=== PATIENT | female | born 1940 | race Caucasian/White ===

== ENCOUNTER 2020-05-14 21:38 | Emergency (ER) | payer MEDICARE, SELFPAY ==
--- NOTE | 2020-05-14 | ECG_ITS ---
Test Reason : FALL Blood Pressure : / mmHG Vent. Rate : 100 BPM Atrial Rate : 100 BPM P-R Int : 170 ms QRS Dur : 068 ms QT Int : 378 ms P-R-T Axes : 087 051 086 degrees QTc Int : 487 ms Sinus rhythm with Premature atrial complexes Nonspecific T wave abnormality Abnormal ECG When compared with ECG of 13-MAY-2019 04:30, Premature atrial complexes are now Present Referred By: Deann Bennett Electronically Signed By:KATE MASSEY
--- NOTE | 2020-05-14 | CT_ITS ---
EXAMINATIONS: CT HEAD WITHOUT CONTRAST AND CT CERVICAL SPINE WITHOUT CONTRAST CLINICAL INFORMATION: Trauma. Pain. COMPARISON: 05/13/2019. TECHNIQUE: Contiguous helical images of the brain were obtained without IV contrast. Contiguous helical images of the cervical spine were obtained without IV contrast. Multiplanar reconstructions were performed. DLP: 867 mGy-cm. FINDINGS: There are no pathologic extra-axial fluid collections. The lateral, third, fourth ventricles are prominent, though stable, age-appropriate and concordant with the appearance of the sulci. There is no evidence for acute intraparenchymal hemorrhage or infarct. There is periventricular low-attenuation indicative of small vessel disease. There is neither mass nor mass effect. There is no shift of midline structures. The paranasal sinuses and mastoid air cells are clear. There are no osseous lesions. The cervical vertebra are in normal alignment. There is disc height loss at C5/C6 and C6-C7. Disc heights and vertebral heights are otherwise well-preserved. There are no fractures. There is no prevertebral soft tissue swelling. There is no cervical lymphadenopathy. The visualized lung apices are clear. IMPRESSION: No evidence for acute intracranial injury. No evidence for acute injury to the cervical spine. Automated exposure control (Care Dose) Adjustment of the mA and/or kv according to patient size (this includes techniques or standardized protocols for targeted exams where dose is matched to indication / reason for exam; i.e. extremities or head).
[2020-05-14 21:56] VITALS: BP 161/71; BP 167/71; PULSE 61; PULSE 99; RESP 16; TEMP 36.8; O2SAT 100; O2SAT 96; BMI 18.8
--- NOTE | 2020-05-14 22:03 | PC.NURSE ---
pt from home, she lives alone. she states she got up to use the bathroom and got light headed and fell. pt uses 4L oxygen at home for COPD and also smokes. she states she has been feeling cold and clammy at home, also reports she has falled 3 times today.
--- NOTE | 2020-05-14 22:30 | ED.FALL ---
HPI - Fall General Chief Complaint: Fall Stated Complaint: fall Time Seen by Provider: 05/14/20 22:28 History of Present Illness HPI Narrative: This is a 80-year-old female who is brought in by EMS for complaints of multiple falls today without head strike or LOC that was associated with mild dizziness on positional change as well as nausea. However, patient denies any shortness of breath, chest pain, diaphoresis or recent cough /travel/diarrhea /urinary symptoms. Patient states that she has been eating and drinking normally but self endorses she may have been drinking more soda than water. Otherwise, she denies any visual /speech changes and also denies any unilateral weakness /numbness / tingling. complaint: fall Related Data Previous Rx's Medication Instructions Recorded cephalexin 500 mg PO BID #14 cap 05/15/20 Allergies Allergy/AdvReac Type Severity Reaction Status Date / Time Sulfa (Sulfonamide Allergy Unknown HIVES Verified 05/14/20 23:25 Antibiotics) erythromycin base AdvReac Mild GI UPSET Verified 05/14/20 23:25 [ERYTHROMYCIN BASE] Review of Systems Review of Systems: Pertinent positives and negatives as stated in the HPI and 10 point review of systems is otherwise negative. [facility] Past Medical History Medical History COPD (chronic obstructive pulmonary disease) Depression GERD (gastroesophageal reflux disease) Social History Social History Alcohol intake: never Smoking Status: Unknown if ever smoked Use of substances other than those prescribed or required for medical reasons: No Advance Directives: No Advance Directives Information Provided: No Physical Exam Vital Signs and I&O and Narrative: Vital Signs and I&O: Vital Signs Temp 98.2 F 05/14/20 21:56 Pulse 95 05/14/20 22:57 Resp 22 H 05/14/20 22:57 BP 164/76 H 05/14/20 22:57 Pulse Ox 100 05/14/20 22:57 Intake & Output 05/14/20 05/14/20 05/15/20 06:59 18:59 06:59 Weight 43.772 kg Body Mass Index 18.8 VITAL SIGNS: Reviewed. GENERAL: Well developed, well nourished, in no acute distress. HEAD: Normocephalic/atraumatic, EYES: PERRLA, EOMI intact without pain, no nystagmus/pallor/icterus noted EARS: Ext canals without abnormality, TMs non-bulging and non-erythematous NOSE: Nares patent bilateral OROPHARYNX: no oral lesions noted, posterior pharynx clear and non-erythematous without noted tonsillar enlargement/erythema/exudates , dry mucosa NECK: Supple, no adenopathy LUNGS: Normal breath sounds. No adventitious sounds or accessory muscle use. SpO2<100> wears nasal cannula at home constantly CARDIOVASCULAR: Regular rate and rhythm without noted murmurs, no JVD or lower extremity edema. ABDOMEN: Soft, non-tender, non-distended with bowel sounds. No rigidity. No guarding. No palpable masses or hernias noted MUSCULOSKELETAL: No tenderness, deformities, or effusions noted on gross inspection. EXTREMITIES: No cyanosis, clubbing or edema, there is a small skin tear to the dorsal side of the thumb base that is hemostatic. SKIN: Inspection of the skin reveals no rashes, ulcerations, jaundice, pallor, or petechiae. NEUROLOGIC: Alert and oriented x 4. Strength and sensation to light touch were grossly intact Course Course Hospital Course: Review of all lab work, imaging is negative for any acute intracranial or cervical spine abnormalities, however the urinalysis is positive for UTI. All results and findings were discussed with the patient at bedside who reports improvement after the IV fluids and will receive initial antibiotics and be discharged with a prescription. MDM - Fall MDM Narrative Medical decision making narrative: this is a 80-year-old female with history and clinical presentation most consistent with mechanical falls but due to the associated dizziness on position change will rule out infectious, arrhythmia, dehydration etiologies. Lab Data Labs: Lab Results 05/14/20 Range/Units 23:29 Urine Color YELLOW Urine Appearance CLOUDY Urine pH 6.0 (5.0-8.0) Ur Specific [place] >= 1.030 H (1.005-1.025) Urine Protein 2+ H (NEG-TRACE) MG/DL Urine Glucose (UA) NEG (NEG) MG/DL Urine Ketones NEG (NEG) MG/DL Urine Blood 2+ H (NEG) Urine Nitrite POS H (NEG) Ur Leukocyte Esterase 1+ H (NEG) Urine RBC 0 (0) /HPF Urine WBC 30-49 H (0-4) /HPF Ur Squamous Epith Cells 1+ /LPF Ur Renal Epithelial Cell 2+ /LPF Urine Bacteria 4+ /LPF ECG Data Attestation: I personally reviewed and interpreted this ECG as follows: Prior ECG tracings: available for review Interpretation: NSR. PACs, HR-100, no evidence of ischemia. Discharge Plan Discharge Clinical Impression: Acute UTI (urinary tract infection) Patient Disposition: Home, Self-Care Instructions: Urinary Tract Infection in Older Adults (ED) Additional Instructions: 1. resume all home medications as prescribed. 2. increase your fluid intake, especially water. The patient and/or family acknowledge understanding of results (as applicable), diagnosis, treatment plan, need for follow up, and symptoms that should prompt a return to the emergency room. Prescriptions: New cephalexin 500 mg capsule 500 mg PO BID Qty: 14 RF: 0 Referrals: Gadiel Wu MD [Physician] - 2 days ( follow-up on your urine culture to ensure antibiotics are specific to the results)
--- NOTE | 2020-05-14 22:37 | PC.NURSE ---
PT A&O, NO SOB OR CHEST PAIN. PT WAS GOING TO THE BATHROOM THIS EVENING WHEN SHE FELL. PT REPORTS FEELING LIGHT HEADED. PROVIDER IN TO ASSESS PT. PT HAS A SKIN LACERATION TO LEFT HAND.
[2020-05-14 22:57] VITALS: BP 164/76; PULSE 95; RESP 22; O2SAT 100
--- NOTE | 2020-05-14 22:57 | PC.NURSE ---
IV PLACED AND SKIN TEAR CLEANED AND DRESSING APPLIED.
[2020-05-14] MEDS: 0.9 % Sodium Chloride 1,000 ML 999 ML IVCONT (23:30)
--- NOTE | 2020-05-14 23:37 | PC.NURSE ---
PT OOB TO BED SIDE COMMODE TO VOID. URINE CONCENTRATED. UA COLLECTED AND SENT
[2020-05-15 00:25] LABS: Glucose Urine UA NEG (NEG); Leukocyte Esterase Urine 1+ (NEG); Nitrite Urine POS (NEG); Specific Gravity - Urine >= 1.030 (1.005-1.025); Urine Blood 2+ (NEG); Urine Ketones NEG (NEG); Urine Protein 2+ MG/DL (NEG-TRACE)
[2020-05-15 00:27] LABS: Appearance Urine CLOUDY; Color Urine YELLOW
[2020-05-15 00:32] LABS: Bacteria Urine 4+ /LPF; RBC Urine 0 /HPF (0); Renal Epithelial Cells Urine 2+ /LPF; Squamous Epithelial Cell Urine 1+ /LPF; WBC Urine 30-49 /HPF (0-4)
[2020-05-15] MEDS: cefTRIAXone sodium 1 GM in 0.9 % Sodium Chloride 50 ML IV (01:08)
--- NOTE | 2020-05-15 01:42 | PC.NURSE ---
PT TOLERATED MEDICATIONS WELL
--- NOTE | 2020-05-15 02:24 | XR_ITS ---
EXAMINATION: CHEST 2 VIEWS CLINICAL INFORMATION: Cough. COMPARISON: 04/05/2020. TECHNIQUE: PA and lateral views of the chest were obtained. FINDINGS: The cardiac silhouette is not enlarged. The mediastinal and hilar contours are unremarkable. There are neither pleural effusions nor pneumothoraces. There are no consolidations. The lungs are hyperinflated. The osseous structures are stable. IMPRESSION: No evidence for acute disease. Lung hyperinflation.
--- NOTE | 2020-05-15 02:32 | PC.NURSE ---
COMPLETED PER CARE, CHANGE INTO HOSPITAL BRIEF WITH PAD. PT WAS HAVING INCREASE RESPIRATION AND COUGH, PORTABLE X-RAY OF THE CHEST BEING TAKEN.
== END 2020-05-15 03:36 | disposition home or self-care (01) ==
PROVIDERS: Emergency Provider Student in an Organized Health Care Education/Training Program
DX: N39.0 Urinary tract infection, site not specified (principal); R42 Dizziness and giddiness; Z91.81 History of falling
CPT/HCPCS: 70450; 71046; 72125; 81001; 87086; 87088; 87186; 93005; 93010; 96361; 96365; 99284; J0696

== ENCOUNTER 2020-07-31 20:52 | Inpatient (IN) | payer MEDICARE, SELFPAY ==
[2020-07-31 20:55] VITALS: BP 130/80; BP 156/55; PULSE 102; PULSE 110; RESP 30; TEMP 37.1; O2SAT 100; O2SAT 98
--- NOTE | 2020-07-31 21:11 | ECG_ITS ---
Test Reason : [id number] Blood Pressure : / mmHG Vent. Rate : 102 BPM Atrial Rate : 102 BPM P-R Int : 176 ms QRS Dur : 074 ms QT Int : 362 ms P-R-T Axes : 088 033 092 degrees QTc Int : 471 ms Sinus tachycardia Nonspecific T wave abnormality Abnormal ECG When compared with ECG of 14-MAY-2020 22:38, Premature atrial complexes are no longer Present Referred By: Ron Villegas Electronically Signed By:TEVIN BOB MD
--- NOTE | 2020-07-31 21:16 | XR_ITS ---
EXAMINATION: PORTABLE CHEST 1 VIEW CLINICAL INFORMATION: SOB ?COVID . COMPARISON: 05/15/2020. TECHNIQUE: Portable frontal view of the chest was obtained. FINDINGS: The lungs are hyperinflated with chronic appearing reticular markings. Linear scarring at the right base is similar to the prior study as well. I do not appreciate any new focal infiltrate, effusion, edema, or pneumothorax. Cardiac and mediastinal silhouettes are within normal limits for size with vascular calcification in the aorta. No acute bony abnormality seen. XR/XR chest 1V IMPRESSION: Hyperinflated with chronic appearing reticular markings similar to the 05/15/2020 study. No acute superimposed process
--- NOTE | 2020-07-31 21:32 | ED_ITS ---
HPI - SOB/Dyspnea General Chief Complaint: Dyspnea Stated Complaint: sob Time Seen by Provider: 07/31/20 21:15 Source: patient Mode of arrival: EMS Limitations: no limitations History of Present Illness HPI Narrative: Patient's history of COPD on still smokes about half pack a day on home oxygen 4 lpm as needed been feeling short of breath for last 1 week using more oxygen , lately started having running nose and nasal congestion feels weak with dry cough. No COVID contacts per patient patient denies any chest pain no palpitation no leg swelling no nausea vomiting or abdominal pain when patient came was saturating 94% at room air patient denies any fever MD elicited complaint: shortness of breath and cough Pertinent past history: COPD Onset (ago): week(s) (1) Timing: constant Severity: moderate Related Data Home Medications Medication Instructions Recorded Confirmed albuterol sulfate 2 puff PO Q6H PRN 05/15/20 07/31/20 aspirin [Aspir-81] 81 mg PO DAILY 05/15/20 07/31/20 docusate sodium 1 cap PO DAILY PRN 05/15/20 07/31/20 duloxetine 60 mg PO DAILY 05/15/20 07/31/20 fluticasone propionate 1 - 2 spray INTRANASAL DAILY 05/15/20 07/31/20 ipratropium bromide [Atrovent HFA] 2 puff INHALATION TID 05/15/20 07/31/20 omeprazole 20 mg PO DAILY 05/15/20 07/31/20 simvastatin 20 mg PO DAILY 05/15/20 07/31/20 Allergies Allergy/AdvReac Type Severity Reaction Status Date / Time Sulfa (Sulfonamide Allergy Unknown HIVES Verified 05/14/20 23:25 Antibiotics) erythromycin base AdvReac Mild GI UPSET Verified 05/14/20 23:25 [ERYTHROMYCIN BASE] Review of Systems Review of Systems: Constitutional : No Weight loss, No Fever, No Chills weakness+ ENT/Mouth : No sore throat,++ Rhinorrhea Eyes: No Eye Pain, No Swelling Cardiovascular : No Chest Pain, ++Dyspnea on Exertion,++ Orthopnea, No Edema, No Palpitations, Respiratory : SOB ++ No Sputum Gastrointestinal : no Nausea, No Vomiting, No Diarrhea, No abdominal Pain, No Hematochezia, No Melena Genitourinary : No Dysuria, No Urinary Frequency Musculoskeletal : No joint pain, No Myalgias, No Joint Swelling Skin : No Skin Lesions, No rash Neuro : No Weakness, No Numbness, No Dizziness, No Headache Psych : No Anxiety/Panic, No Depression Heme/Lymph: No Bruising, No Lymphadenopathy Endocrine : No Polyuria, No Polydipsia All other systems reviewed and are negative [facility], [facility] Past Medical History Medical History COPD (chronic obstructive pulmonary disease) Depression GERD (gastroesophageal reflux disease) IBS (irritable bowel syndrome) Social History Social History Household Members: None Housing: House Do you presently have visiting nurse or other home services: No Alcohol intake: never Smoking Status: Current every day smoker Tobacco Type: Cigarette Smoked in Last 30 Days: Yes Patient Interested in Nicotine Replacement: Yes Patient Given Instructions on How to Stop Smoking: Yes Date Education Initiated: 08/01/20 Second Hand Smoke Exposure: No Use of substances other than those prescribed or required for medical reasons: No Have you been hit, kicked, punched, or otherwise hurt by someone within the past year? If so, by whom?: No Do you feel safe in your current relationship?: No Current Relationship Is there a partner from a previous relationship who is making you feel unsafe now?: No Advance Directives: No Advance Directives Information Provided: No Do you have thoughts of harming others: None Do you have a plan to hurt others: No Plan Recently lost weight without trying: No Physical Exam Vital Signs: Vital Signs: Last Vital Signs Temp 99 F 08/01/20 02:41 Pulse 88 08/01/20 02:41 Resp 24 H 08/01/20 02:41 BP 162/68 H 08/01/20 02:41 Pulse Ox 98 08/01/20 00:00 Body Mass Index 20.0 Appearance: Alert. Oriented X3. No acute distress. Eyes: Pupils equal, round and reactive to light. ENT: Pharynx normal. Neck: Normal inspection. Neck supple. CVS: Normal heart rate and rhythm. Pulses normal. Respiratory: Mild respiratory distress. Prolonged expiration, no crackles or rales Abdomen: Soft and nontender. Bowel sounds are present, no mass palpable, no CVA tenderness Skin: Skin warm and dry. Normal skin color. Normal skin turgor. Extremities: No lower extremity edema. No calf tenderness Neuro: Oriented X 3. No motor deficit. No sensory deficit. MDM - SOB/Dyspnea MDM Narrative Medical decision making narrative: Patient's saturating 96% at 4 LPM at rest which decreased to 83% at room air . still feel weak waiting for the UA also p atient has elevated troponin will repeat troponin in 2 hours , no acute EKG changes suggestive of ischemia, slightly elevated BNP but no convincing CHF will admit patient for COPD exacerbation. COVID-19 is negative Differential Diagnosis Differential diagnosis: Likely acute exacerbation of chronic obstructive airways disease, congestive heart failure and pneumonia Medical Records Attestation: I reviewed the patient's medical records. Lab Data Attestation: I reviewed the patient's lab results. Result diagrams: 07/31/20 21:41 07/31/20 21:42 Labs: Lab Results 07/31/20 07/31/20 07/31/20 Range/Units 21:30 21:40 21:41 WBC 11.0 H (4.8-10.8) X10*3/uL RBC 3.48 L (4.20-5.50) X10*6/uL Hgb 9.0 L (12.0-16.0) g/dl Hct 29.6 L (37-47) % MCV 85.1 (80-98) fL MCH 25.9 L (27.0-33.0) pg MCHC 30.4 L (31.0-35.0) g/dl RDW 16.1 H (11.0-16.0) % Plt Count 485 H (160-400) X10*3/uL MPV 9.7 (9.4-12.3) fL Immature Gran % (Auto) 0.3 (0.0-0.4) % Neut % (Auto) 74.8 H (45-73) % Lymph % (Auto) 13.4 L (20-40) % [place]re[place] % (Auto) 7.7 (2-11) % Eos % (Auto) 2.9 (0-4) % Baso % (Auto) 0.9 (0-2) % Lymph # (Auto) 1.5 (1.2-4.9) X10*3/uL [place] # (Auto) 0.9 (0.1-1.2) X10*3/uL Eos # (Auto) 0.3 (0.0-0.4) X10*3/uL Baso # (Auto) 0.1 (0.0-0.2) X10*3/uL Abs Immat Gran (auto) 0.03 (0.00-0.03) X10*3/uL Absolute Neuts (auto) 8.2 (2.0-8.3) X10*3/uL Absolute Nucleated RBC 0.000 (0.0-0.012) X10*3/uL Nucleated RBC % (auto) 0.0 (0.0-0.2) /100WBC PT (10.8-13.0) SEC INR (0.9-1.1) APTT (24.1-38.0) SEC D-Dimer NG/ML Sodium (135-145) mmol/L Potassium (3.3-5.1) mmol/l Chloride (96-108) mmol/L Carbon Dioxide (22-29) mmol/L Anion Gap (12-20) BUN (9-16) mg/dL Creatinine (0.5-1.4) mg/dL Estim Creat Clear Calc Estimated GFR Random Glucose (60-115) mg/dL Lactic Acid 2.0 (0.5-2.0) mmol/L Calcium (8.4-10.2) mg/dL Ferritin (10-250) ng/mL Total Bilirubin (0.0-1.0) mg/dL Direct Bilirubin (0.0-0.5) mg/dL AST (5-31) U/L ALT (0-31) U/L Alkaline Phosphatase (39-117) U/L Lactate Dehydrogenase (122-220) U/L Troponin I High Sens (<3.5-17.0) ng/L B-Natriuretic Peptide (<100) pg/mL Total Protein (6.5-8.0) g/dL Albumin (3.5-5.0) g/dL Coronavirus (PCR) NEGATIVE (Negative) Influenza Type A (PCR) NEGATIVE (Negative) Influenza Type B (PCR) NEGATIVE (Negative) RSV RNA Qual (PCR) NEGATIVE (Negative) 07/31/20 07/31/20 07/31/20 Range/Units 21:42 21:42 21:42 WBC (4.8-10.8) X10*3/uL RBC (4.20-5.50) X10*6/uL Hgb (12.0-16.0) g/dl Hct (37-47) % MCV (80-98) fL MCH (27.0-33.0) pg MCHC (31.0-35.0) g/dl RDW (11.0-16.0) % Plt Count (160-400) X10*3/uL MPV (9.4-12.3) fL Immature Gran % (Auto) (0.0-0.4) % Neut % (Auto) (45-73) % Lymph % (Auto) (20-40) % [place] % (Auto) (2-11) % Eos % (Auto) (0-4) % Baso % (Auto) (0-2) % Lymph # (Auto) (1.2-4.9) X10*3/uL [place] # (Auto) (0.1-1.2) X10*3/uL Eos # (Auto) (0.0-0.4) X10*3/uL Baso # (Auto) (0.0-0.2) X10*3/uL Abs Immat Gran (auto) (0.00-0.03) X10*3/uL Absolute Neuts (auto) (2.0-8.3) X10*3/uL Absolute Nucleated RBC (0.0-0.012) X10*3/uL Nucleated RBC % (auto) (0.0-0.2) /100WBC PT (10.8-13.0) SEC INR (0.9-1.1) APTT (24.1-38.0) SEC D-Dimer NG/ML Sodium 139 (135-145) mmol/L Potassium 4.0 (3.3-5.1) mmol/l Chloride 99 (96-108) mmol/L Carbon Dioxide 28 (22-29) mmol/L Anion Gap 16 (12-20) BUN 26 H (9-16) mg/dL Creatinine 1.15 (0.5-1.4) mg/dL Estim Creat Clear Calc 28.5 Estimated GFR 46 Random Glucose 109 (60-115) mg/dL Lactic Acid (0.5-2.0) mmol/L Calcium 9.4 (8.4-10.2) mg/dL Ferritin 7 L (10-250) ng/mL Total Bilirubin (0.0-1.0) mg/dL Direct Bilirubin (0.0-0.5) mg/dL AST (5-31) U/L ALT (0-31) U/L Alkaline Phosphatase (39-117) U/L Lactate Dehydrogenase 201 (122-220) U/L Troponin I High Sens 63.5 H (<3.5-17.0) ng/L B-Natriuretic Peptide 264 H (<100) pg/mL Total Protein (6.5-8.0) g/dL Albumin (3.5-5.0) g/dL Coronavirus (PCR) (Negative) Influenza Type A (PCR) (Negative) Influenza Type B (PCR) (Negative) RSV RNA Qual (PCR) (Negative) 07/31/20 07/31/20 07/31/20 Range/Units 21:42 21:42 23:53 WBC (4.8-10.8) X10*3/uL RBC (4.20-5.50) X10*6/uL Hgb (12.0-16.0) g/dl Hct (37-47) % MCV (80-98) fL MCH (27.0-33.0) pg MCHC (31.0-35.0) g/dl RDW (11.0-16.0) % Plt Count (160-400) X10*3/uL MPV (9.4-12.3) fL Immature Gran % (Auto) (0.0-0.4) % Neut % (Auto) (45-73) % Lymph % (Auto) (20-40) % [place] % (Auto) (2-11) % Eos % (Auto) (0-4) % Baso % (Auto) (0-2) % Lymph # (Auto) (1.2-4.9) X10*3/uL [place] # (Auto) (0.1-1.2) X10*3/uL Eos # (Auto) (0.0-0.4) X10*3/uL Baso # (Auto) (0.0-0.2) X10*3/uL Abs Immat Gran (auto) (0.00-0.03) X10*3/uL Absolute Neuts (auto) (2.0-8.3) X10*3/uL Absolute Nucleated RBC (0.0-0.012) X10*3/uL Nucleated RBC % (auto) (0.0-0.2) /100WBC PT 11.9 (10.8-13.0) SEC INR 1.0 (0.9-1.1) APTT 30.4 (24.1-38.0) SEC D-Dimer 398 NG/ML Sodium (135-145) mmol/L Potassium (3.3-5.1) mmol/l Chloride (96-108) mmol/L Carbon Dioxide (22-29) mmol/L Anion Gap (12-20) BUN (9-16) mg/dL Creatinine (0.5-1.4) mg/dL Estim Creat Clear Calc Estimated GFR Random Glucose (60-115) mg/dL Lactic Acid (0.5-2.0) mmol/L Calcium (8.4-10.2) mg/dL Ferritin (10-250) ng/mL Total Bilirubin < 0.2 (0.0-1.0) mg/dL Direct Bilirubin < 0.2 (0.0-0.5) mg/dL AST 18 (5-31) U/L ALT 10 (0-31) U/L Alkaline Phosphatase 89 (39-117) U/L Lactate Dehydrogenase (122-220) U/L Troponin I High Sens 63.2 H (<3.5-17.0) ng/L B-Natriuretic Peptide (<100) pg/mL Total Protein 7.6 (6.5-8.0) g/dL Albumin 4.1 (3.5-5.0) g/dL Coronavirus (PCR) (Negative) Influenza Type A (PCR) (Negative) Influenza Type B (PCR) (Negative) RSV RNA Qual (PCR) (Negative) ECG Data Attestation: I personally reviewed and interpreted this ECG as follows: Interpretation: Sinus tachycardia with heart rate of 102 nonspecific T-wave changes normal axis normal intervals PACs present impression:: sinus tachycardia no acute ischemia Discharge Plan Discharge Clinical Impression: Acute exacerbation of chronic obstructive airways disease Patient Disposition: Admitted As Inpatient Interventions: Admission Worksheet (ED) Last Done: 08/01/20 02:01 Discharge Date/Time: 08/01/20 01:47
[2020-07-31 21:53] LABS: Basophils Absolute Auto 0.1 X10*3/uL (0.0-0.2); Basophils Percent Auto 0.9 % (0-2); Eosinophils Absolute Auto 0.3 X10*3/uL (0.0-0.4); Eosinophils Percent Auto 2.9 % (0-4); Hematocrit 29.6 % (37-47); Imm Gran Abs Auto 0.03 X10*3/uL (0.00-0.03); Imm Gran Pct Auto 0.3 % (0.0-0.4); Lymphocytes Absolute Auto 1.5 X10*3/uL (1.2-4.9); Lymphocytes Percent Auto 13.4 % (20-40); Mean Corpuscular HGB Conc 30.4 g/dl (31.0-35.0); Mean Corpuscular Hemoglobin 25.9 pg (27.0-33.0); Mean Corpuscular Volume 85.1 fL (80-98); Mean Platelet Volume 9.7 fL (9.4-12.3); Monocytes Absolute Auto 0.9 X10*3/uL (0.1-1.2); Monocytes Percent Auto 7.7 % (2-11); Neutrophils Absolute Auto 8.2 X10*3/uL (2.0-8.3); Neutrophils Percent Auto 74.8 % (45-73); Platelet Count 485 X10*3/uL (160-400); Red Blood Count 3.48 X10*6/uL (4.20-5.50); Red Cell Distribution Width 16.1 % (11.0-16.0)
[2020-07-31 21:55] LABS: MANUAL DIFF FLAG NO
[2020-07-31 21:59] LABS: Prothrombin Time 11.9 SEC (10.8-13.0)
[2020-07-31 22:02] LABS: D Dimer 398 NG/ML
[2020-07-31 22:05] LABS: Partial Thromboplastin Time 30.4 SEC (24.1-38.0)
[2020-07-31] MEDS: dexAMETHasone sod phosphate 4 MG/ML VIAL IVPUSH (22:09)
[2020-07-31] MEDS: Albuterol Sulfate 90 MCG 8 GM INHALER 4 PUFF INHALE (22:09)
--- NOTE | 2020-07-31 22:11 | PC.NURSE ---
patient medicated per order
[2020-07-31 22:15] LABS: Anion Gap 16 (12-20); Blood Urea Nitrogen 26 mg/dL (9-16); Calcium 9.4 mg/dL (8.4-10.2); Carbon Dioxide 28 mmol/L (22-29); Chloride 99 mmol/L (96-108); Creatinine Clr Calc Pharmacy 28.5; Estimated Glomerular Filt Rate 46; Glucose Random 109 mg/dL (60-115); Sodium 139 mmol/L (135-145)
[2020-07-31 22:16] LABS: Lactate Dehydrogenase 201 U/L (122-220)
[2020-07-31 22:29] LABS: Alanine Aminotransferase 10 U/L (0-31); Albumin Level 4.1 g/dL (3.5-5.0); Alkaline Phosphatase 89 U/L (39-117); Aspartate Amino Transferase 18 U/L (5-31); Bilirubin Direct < 0.2 mg/dL (0.0-0.5); Bilirubin Total < 0.2 mg/dL (0.0-1.0); Total Protein 7.6 g/dL (6.5-8.0)
[2020-07-31 22:35] LABS: Influenza A PCR NEGATIVE (Negative); Influenza B PCR NEGATIVE (Negative); Resp Syncy Virus RNA Qual PCR NEGATIVE (Negative); SARS COV2 PCR INHOUSE NEGATIVE (Negative)
[2020-07-31 22:35] LABS: B Type Natriuretic Peptide 264 pg/mL (<100); Troponin-I High Sensitivity 63.5 ng/L (<3.5-17.0)
[2020-07-31 22:38] LABS: Ferritin 7 ng/mL (10-250)
[2020-07-31 23:37] VITALS: BP 173/63; PULSE 120; RESP 33; TEMP 36.9; O2SAT 83
[2020-07-31] MEDS: cefTRIAXone sodium 1 GM in 0.9 % Sodium Chloride 50 ML IV (23:58)
[2020-07-31] MEDS: Acetaminophen 325 MG TABLET 650 MG PO (23:58)
[2020-08-01] VITALS (10 sets, daily range): BP systolic 157–177; BP diastolic 56–68; PULSE 87–112; RESP 18–32; TEMP 36.3–37.2; O2SAT 94–99
--- NOTE | 2020-08-01 00:08 | PC.NURSE ---
Seen by Dr Castro.
[2020-08-01 00:42] LABS: Troponin-I High Sensitivity 63.2 ng/L (<3.5-17.0)
--- NOTE | 2020-08-01 01:37 | PC.NURSE ---
NURSE TO NURSE GIVEN TO CHACHA HERNANDEZ.
[2020-08-01] MEDS: levoFLOXacin/D5W 750 MG/150 ML PIGGYBACK 100 MG IV (03:26)
--- NOTE | 2020-08-01 05:12 | P.HPHOSP_ITS ---
History of Present Illness Date of Service: 08/01/20 Chief Complaint: Shortness of breath This is present 80-year-old female with past medical history of COPD who presents to the hospital complaints shortness of breath, cough, and generalized weakness for the past 1 month worsening over the last 1 week. She denies any recent sick contacts or travel. She has not had any headache, change in vision, any chest pain, no palpitations, no fever but has been feeling chills, no diarrhea or constipation, no nausea or vomiting, no abdominal pain. No urinary symptoms and no lower extremity edema or pain. Denies any orthopnea or PND. She is a current smoker and smokes about half to 2/3 of a pack. On arrival to the ED patient was found to be hypoxic with an O2 of 83% on room air, patient currently on 4 L satting 96%. Other vitals significant for heart rate of 102 and respiratory rate of 30. Labs are significant 11,000, hemoglobin of 9, baseline around 10, hematocrit short 9.6, BUN of 7 6, creatinine of 1.15, ferritin of 7, initial high sensitivity troponin of 63.5, not change on repeat, Chest x-ray showed hyperinflated with chronic appearing reticular markings similar to previous x-ray with no acute serum propose process Patient will be admitted for COPD exacerbation Past medical history: COPD, hyperlipidemia, anxiety depression Surgical history: Appendectomy, cholecystectomy, back surgery Family history: Denies Social history: Comes from home, lives with her daughter, ambulates using a ca ne/walker sometimes at home. Smokes about half a pack to 2/3 of a pack cigarettes daily, denies any illicit drugs Review of Systems Review of Systems: Yes all other systems are reviewed and are negative [facility] Medical History COPD (chronic obstructive pulmonary disease) Depression GERD (gastroesophageal reflux disease) IBS (irritable bowel syndrome) Social History Household Members: None Housing: House Do you presently have visiting nurse or other home services: No Alcohol intake: never Smoking Status: Current every day smoker Tobacco Type: Cigarette Smoked in Last 30 Days: Yes Patient Interested in Nicotine Replacement: Yes Patient Given Instructions on How to Stop Smoking: Yes Date Education Initiated: 08/01/20 Second Hand Smoke Exposure: No Use of substances other than those prescribed or required for medical reasons: No Have you been hit, kicked, punched, or otherwise hurt by someone within the past year? If so, by whom?: No Do you feel safe in your current relationship?: No Current Relationship Is there a partner from a previous relationship who is making you feel unsafe now?: No Advance Directives: No Advance Directives Information Provided: No Do you have thoughts of harming others: None Do you have a plan to hurt others: No Plan Recently lost weight without trying: No Meds Allergies Allergy/AdvReac Type Severity Reaction Status Date / Time Sulfa (Sulfonamide Allergy Unknown HIVES Verified 05/14/20 23:25 Antibiotics) erythromycin base AdvReac Mild GI UPSET Verified 05/14/20 23:25 [ERYTHROMYCIN BASE] Home Medications Medication Instructions Recorded Confirmed Type albuterol sulfate 2 puff PO Q6H PRN 05/15/20 07/31/20 History aspirin [Aspir-81] 81 mg PO DAILY 05/15/20 07/31/20 History docusate sodium 1 cap PO DAILY PRN 05/15/20 07/31/20 History duloxetine 60 mg PO DAILY 05/15/20 07/31/20 History fluticasone propionate 1 - 2 spray INTRANASAL DAILY 05/15/20 07/31/20 History ipratropium bromide [Atrovent HFA] 2 puff INHALATION TID 05/15/20 07/31/20 History omeprazole 20 mg PO DAILY 05/15/20 07/31/20 History simvastatin 20 mg PO DAILY 05/15/20 07/31/20 History Physical Exam Vital Signs and Narrative: Vital Signs: Last Vital Signs Temp 99 F 08/01/20 02:41 Pulse 88 08/01/20 02:41 Resp 24 H 08/01/20 02:41 BP 162/68 H 08/01/20 02:41 Pulse Ox 98 08/01/20 00:00 Body Mass Index 20.0 Const: General: cooperative and no acute distress Orientation/consciousness: patient oriented x3 Eyes: General: appearance normal, both eyes and all related structures Pupils: Equal, round and reactive pupils present Resp: Other: Rhonchi Effort & Inspection: normal respiratory effort and able to speak in complete sentences Cardio: Rate: regular rate Rhythm: regular rhythm GI: Palpation (GI): Soft to palpation Auscultation: normal bowel sounds Skin: General skin exam: no rashes or lesions noted Neuro: General: patient oriented x3 Cranial nerves: Yes Equal, round and reactive pupils present Cognition (Neuro): normal cognition Extrem: General: Yes normal to inspection and Yes no pedal edema Results Labs CBC and Chem 7: 07/31/20 21:41 07/31/20 21:42 Labs: Laboratory Results - last 24 hr 07/31/20 07/31/20 07/31/20 21:30 21:40 21:41 MCV 85.1 MCH 25.9 L MCHC 30.4 L RDW 16.1 H Plt Count 485 H MPV 9.7 Immature Gran % (Auto) 0.3 Neut % (Auto) 74.8 H Lymph % (Auto) 13.4 L Valley % (Auto) 7.7 Eos % (Auto) 2.9 Baso % (Auto) 0.9 Lymph # (Auto) 1.5 Valley # (Auto) 0.9 Eos # (Auto) 0.3 Baso # (Auto) 0.1 Abs Immat Gran (auto) 0.03 Absolute Neuts (auto) 8.2 Absolute Nucleated RBC 0.000 Nucleated RBC % (auto) 0.0 PT INR APTT D-Dimer Anion Gap Estim Creat Clear Calc Estimated GFR Random Glucose Lactic Acid 2.0 Calcium Ferritin Total Bilirubin Direct Bilirubin AST ALT Alkaline Phosphatase Lactate Dehydrogenase Troponin I High Sens B-Natriuretic Peptide Total Protein Albumin Coronavirus (PCR) NEGATIVE Influenza Type A (PCR) NEGATIVE Influenza Type B (PCR) NEGATIVE RSV RNA Qual (PCR) NEGATIVE 07/31/20 07/31/20 07/31/20 21:42 21:42 21:42 MCV MCH MCHC RDW Plt Count MPV Immature Gran % (Auto) Neut % (Auto) Lymph % (Auto) Valley % (Auto) Eos % (Auto) Baso % (Auto) Lymph # (Auto) Valley # (Auto) Eos # (Auto) Baso # (Auto) Abs Immat Gran (auto) Absolute Neuts (auto) Absolute Nucleated RBC Nucleated RBC % (auto) PT INR APTT D-Dimer Anion Gap 16 Estim Creat Clear Calc 28.5 Estimated GFR 46 Random Glucose 109 Lactic Acid Calcium 9.4 Ferritin 7 L Total Bilirubin Direct Bilirubin AST ALT Alkaline Phosphatase Lactate Dehydrogenase 201 Troponin I High Sens 63.5 H B-Natriuretic Peptide 264 H Total Protein Albumin Coronavirus (PCR) Influenza Type A (PCR) Influenza Type B (PCR) RSV RNA Qual (PCR) 07/31/20 07/31/20 07/31/20 21:42 21:42 23:53 MCV MCH MCHC RDW Plt Count MPV Immature Gran % (Auto) Neut % (Auto) Lymph % (Auto) Valley % (Auto) Eos % (Auto) Baso % (Auto) Lymph # (Auto) Valley # (Auto) Eos # (Auto) Baso # (Auto) Abs Immat Gran (auto) Absolute Neuts (auto) Absolute Nucleated RBC Nucleated RBC % (auto) PT 11.9 INR 1.0 APTT 30.4 D-Dimer 398 Anion Gap Estim Creat Clear Calc Estimated GFR Random Glucose Lactic Acid Calcium Ferritin Total Bilirubin < 0.2 Direct Bilirubin < 0.2 AST 18 ALT 10 Alkaline Phosphatase 89 Lactate Dehydrogenase Troponin I High Sens 63.2 H B-Natriuretic Peptide Total Protein 7.6 Albumin 4.1 Coronavirus (PCR) Influenza Type A (PCR) Influenza Type B (PCR) RSV RNA Qual (PCR) Imaging Radiologist's Impressions: Impressions Chest X-Ray 07/31/20 21:16 IMPRESSION: Hyperinflated with chronic appearing reticular markings similar to the 05/15/2020 study. No acute superimposed process Assessment and Plan (1) Acute exacerbation of chronic obstructive airways disease: Status: Acute (2) Leukocytosis: Status: Acute (3) Normocytic anemia: Status: Acute This is a 80-year-old female with past medical history of COPD who presents to the hospital with COPD exacerbate # sepsis - secondary to COPD exacerbation, no pneumonia, UA negative - will start on antibiotics , steroids, and breathing treatment - follow cultures # acute COPD exacerbation - has dyspnea, cough, sputum production - COVID-19 negative, influenza and RSV negative - no recent sick contacts or travel, afebrile, chest x-ray showing COPD with no evidence of pneumo Plan: - DuoNeb q.i.d., p.r.n., Solu-Medrol 40 IV b.i.d., given her dyspnea, cough and sputum production will start her levofloxacin - follow cultures # acute on chronic anemia - hemoglobin of 9 from 10, denies any melena or bright red blood per rectum - ferritin is low Plan call - will obtain stool occult - B12, folic acid, - transfusion goal of hemoglobin less than 7 # leukocytosis - most likely secondary to COPD exacerbation - will follow CBC DVT prophylaxis: Heparin( no evidence of bleed therefore patient will need anticoagulation for her hospital stay)
[2020-08-01] MEDS: Omeprazole 20 MG CAPSULE.DR PO (05:40)
[2020-08-01] MEDS: Albuterol/Iprat 2.5/0.5MG 3 ML AMPUL.NEB INHALE ×4 (07:11→20:52)
[2020-08-01] MEDS: Heparin Sodium,Porcine 5,000 UNIT/ML VIAL 5000 UNIT SUBCUT ×2 (09:13→20:38)
[2020-08-01] MEDS: Aspirin Enteric Coated 81 MG TABLET.DR PO (09:14)
[2020-08-01] MEDS: DULoxetine HCl 60 MG CAPSULE.DR PO (09:14)
[2020-08-01] MEDS: 0.9 % Sodium Chloride Flush 3 ML SYRINGE IVFLUSH ×2 (09:15→16:45)
--- NOTE | 2020-08-01 09:48 | MHC.CM.PN ---
Addendum entered by Kelsey Henderson RN 08/01/20 13:22: CM SPOKE WITH DAUGHTER/HCP WHO REPORTS HER MOM IS A SMOKER AND SHE CATCHES PATIENT OFF OF HER OXYGEN, REQUESTING NURSING TO REALLY ENCOURAGE IMPORTANCE OF O2 USE. DAUGHTER WILL BRING IN PORTABLE O2 FOR TRANSPORT HOME. Original Note: PT REPORTS LIVING ALONE, PT USES WALKER OR CANE AT HOME AND HAS [facility] FOR HOME O2. PT DENIES CURRENT VNA SERVICES HOWEVER HAS BEEN HAPPY WITH THE [facility] IN THE PAST. PT RECEIVES MEALS ON WHEELS, A NEIGHBOR WHO WALKS HER DOG DAILY AND DOES SOME MINOR CHORES, PT REPORTS A GRANDSON WHO LIVES NEARBY AND STOPS BY OCCASIONALLY AND DAUGHTER WHO IS HER HCP/POWER OF HAT FORMING MACHINE FEEDER. PLAN: DISCHARGE HOME VS HOME WITH SERVICES HCP/POWER OF HAT FORMING MACHINE FEEDER: DAUGHTER MARYCARMEN GANDHI [phone] PCP: GABINO CALL NP
--- NOTE | 2020-08-01 17:59 | PM.EVENT ---
Event Note Date of Service: 08/02/20 Event Note: Patient says shortness of breath slowly improving Denies any chest pain or abdominal pain or fever or chills. Physical exam: Cvs: rrr, [id number] , no murmur res: clear to auscultation ,no rhonchii or wheezing abd: no rebound or guarding ,nt, bs present. ext pulses present , no cyanosis neuro: axo3 , nonfocal. Assessment and plan: 80-year-old female with past medical history of COPD who presents to the hospital with COPD exacerbate 1.sepsis-thought to be secondary to COPD exacerbation, no pneumonia, UA negative started on iv levaquin , steroids, and breathing treatment follow cultures 2. acute COPD exacerbation has dyspnea, cough, sputum production COVID-19 negative, influenza and RSV negative no recent sick contacts or travel, afebrile, chest x-ray showing COPD with no evidence of pneumo Continue nebs, steroids, p.r.n. oxygen as needed. 3.acute on chronic anemia hemoglobin of 9 from 10, denies any melena or bright red blood per rectum ferritin is low will obtain stool occult, B12, folic acid, transfusion goal of hemoglobin less than 7 4. thought to be sec leukocytosis - most likely secondary to COPD exacerbation - will follow CBC
[2020-08-01] MEDS: Acetaminophen 325 MG TABLET 650 MG PO (20:36)
[2020-08-01] MEDS: Atorvastatin Calcium 10 MG TABLET PO (20:37)
[2020-08-02] VITALS (11 sets, daily range): BP systolic 138–177; BP diastolic 59–78; PULSE 90–106; RESP 18–25; TEMP 36.4–37.5; O2SAT 96–99
[2020-08-02] MEDS: 0.9 % Sodium Chloride Flush 3 ML SYRINGE IVFLUSH ×3 (00:36→20:19)
[2020-08-02] MEDS: Acetaminophen 325 MG TABLET 650 MG PO ×3 (04:02→17:29)
[2020-08-02 04:38] LABS: Basophils Percent Auto 0.2 % (0-2); Hematocrit 25.6 % (37-47); Hemoglobin 7.7 g/dl (12.0-16.0); Imm Gran Abs Auto 0.07 X10*3/uL (0.00-0.03); Imm Gran Pct Auto 0.6 % (0.0-0.4); Lymphocytes Absolute Auto 0.6 X10*3/uL (1.2-4.9); Lymphocytes Percent Auto 5.5 % (20-40); MANUAL DIFF FLAG SCAN; Mean Corpuscular HGB Conc 30.1 g/dl (31.0-35.0); Mean Corpuscular Volume 83.1 fL (80-98); Monocytes Absolute Auto 0.5 X10*3/uL (0.1-1.2); Monocytes Percent Auto 3.8 % (2-11); Neutrophils Absolute Auto 10.6 X10*3/uL (2.0-8.3); Neutrophils Percent Auto 89.9 % (45-73); Platelet Count 430 X10*3/uL (160-400); Red Blood Count 3.08 X10*6/uL (4.20-5.50); Red Cell Distribution Width 16.3 % (11.0-16.0); SCAN SMEAR FLAG 1; White Blood Count 11.7 X10*3/uL (4.8-10.8)
[2020-08-02 04:52] LABS: Anion Gap 13 (12-20); Blood Urea Nitrogen 35 mg/dL (9-16); Carbon Dioxide 29 mmol/L (22-29); Chloride 100 mmol/L (96-108); Creatinine Clr Calc Pharmacy 30.3; Estimated Glomerular Filt Rate 49; Glucose Random 124 mg/dL (60-115); Potassium 4.7 mmol/l (3.3-5.1); Sodium 137 mmol/L (135-145)
[2020-08-02 04:59] LABS: SLIDE REVIEW VERIFIED
[2020-08-02] MEDS: Docusate Sodium 100 MG CAPSULE PO (05:40)
[2020-08-02] MEDS: Omeprazole 20 MG CAPSULE.DR PO ×3 (05:40→16:30)
[2020-08-02 07:13] LABS: Hematocrit 24.1 % (37-47); Hemoglobin 7.5 g/dl (12.0-16.0)
[2020-08-02] MEDS: Albuterol/Iprat 2.5/0.5MG 3 ML AMPUL.NEB INHALE ×4 (07:37→22:04)
--- NOTE | 2020-08-02 08:00 | P.PNIM_ITS ---
Subjective Subjective Date of Service: 08/02/20 Interval History: acute copd ecerebation Review of Systems Patient still short of breath slowly improving, denies any chest pain or abdominal pain or fever. Physical Exam Vital Signs: Vital Signs: Last Vital Signs Temp 97.8 F 08/02/20 03:42 Pulse 100 08/02/20 03:42 Resp 19 08/02/20 03:42 BP 165/68 H 08/02/20 03:42 Pulse Ox 99 08/02/20 03:42 Body Mass Index 20.0 Physical exam: Cvs: rrr, [id number] , no murmur res: Grossly fair air entry, still has wheezing abd: no rebound or guarding ,nt, bs present. ext pulses present , no cyanosis neuro: axo3 , nonfocal. Objective Data Current Medications Generic Name Dose Route Start Last Admin Trade Name Freq PRN Reason Stop Dose Admin Acetaminophen 650 mg 08/01/20 01:38 08/02/20 04:02 Acetaminophen 325 Mg Tablet PO 650 mg Q6H PRN Administration Pain, Mild (Pain Scale 1-3) Albuterol/Ipratropium 3 ml 08/01/20 08:00 08/02/20 07:37 Albuterol/Iprat 2.5/0.5mg 3 Ml Ampul.Neb INHALE 3 ml RQ4H WHILE AWAKE CHUY Administration Albuterol/Ipratropium 3 ml 08/01/20 01:38 Albuterol/Iprat 2.5/0.5mg 3 Ml Ampul.Neb INHALE RQ4H PRN Shortness of Breath/Wheezing Aspirin 81 mg 08/01/20 09:00 08/01/20 09:14 Aspirin Enteric Coated 81 Mg Tablet. PO 81 mg DAILY CHUY Administration Atorvastatin Calcium 10 mg 08/01/20 21:00 08/01/20 20:37 Atorvastatin Calcium 10 Mg Tablet PO 10 mg BEDTIME CHUY Administration Docusate Sodium 100 mg 08/01/20 01:38 08/02/20 05:40 Docusate Sodium 100 Mg Capsule PO 100 mg DAILY PRN Administration constipation Duloxetine HCl 60 mg 08/01/20 09:00 08/01/20 09:14 Duloxetine Hcl 60 Mg Capsule. PO 60 mg DAILY CHUY Administration Heparin Sodium (Porcine) 5,000 unit 08/01/20 10:00 08/01/20 20:38 Heparin Sodium,Porcine 5,000 Unit/Ml Vial SUBCUT 5,000 unit Q12H REPLACED BY [facility] Administration Levofloxacin 750 mg in 150 mls @ 100 mls/hr 08/03/20 04:00 Levaquin IV Q48H REPLACED BY [facility] Ipratropium Sycamore 2 puff 08/01/20 09:00 Ipratropium Sycamore 1 Puff/17 Mcg Inhaler INHALE TID REPLACED BY [facility] Methylprednisolone Sodium Succinate 40 mg 08/01/20 10:00 08/01/20 20:40 Methylprednisolone Sod Succ/Pf 40 Mg/Ml Vial IVPUSH 40 mg Q12H CHUY Administration Omeprazole 20 mg 08/01/20 06:30 08/02/20 05:40 Omeprazole 20 Mg Capsule.Dr PO 20 mg DAILY@0630 REPLACED BY [facility] Administration Ondansetron HCl 4 mg 08/01/20 01:38 Ondansetron Hcl 4 Mg/2 Ml Vial IVPUSH Q8H PRN Nausea and Vomiting Sodium Chloride 3 ml 08/01/20 08:00 08/02/20 00:36 0.9 % Sodium Chloride Flush 3 Ml Syringe IVFLUSH 3 ml QSHIFT CHUY Administration Labs CBC & Chem 7: 08/02/20 06:39 08/02/20 04:13 Microbiology Microbiology Results: Microbiology 07/31/20 21:41 Blood - Venous Blood Culture - Preliminary No growth after 24 hours. 07/31/20 21:41 Blood - Venous Blood Culture - Preliminary No growth after 24 hours. Assessment and Plan (1) Anemia: Status: Acute Assessment and Plan: 80-year-old female with past medical history of COPD who presents to the hospital with COPD exacerbate 1. sepsis secondary to COPD exacerbation, no pneumonia, UA negative will start on antibiotics , steroids, and breathing treatment follow cultures 2. acute COPD exacerbation has dyspnea, cough, sputum production COVID-19 negative, influenza and RSV negative no recent sick contacts or travel, afebrile, chest x-ray showing COPD with no evidence of pneumo Plan: DuoNeb q.i.d., p.r.n., given her dyspnea, cough and sputum production will start her levofloxacin sob improving , discussed with pulmonary we will add small dose prednisone and stop [id number] anemia follow cultures 3. acute on chronic anemia: h/h droping to 7.5 hemoglobin of 9 from 10, denies any melena or bright red blood per rectum - ferritin is low iron studies , b12 and folate , type and cross d/c sc heparin, hold asa added adjusted ppi to bid Discussed with GI IV will add 1 PRBC. May need further GI workup . leukocytosis - most likely secondary to COPD exacerbation - will follow CBC
[2020-08-02] MEDS: DULoxetine HCl 60 MG CAPSULE.DR PO (08:39)
[2020-08-02 08:51] LABS: Alanine Aminotransferase 10 U/L (0-31); Albumin Level 3.5 g/dL (3.5-5.0); Alkaline Phosphatase 72 U/L (39-117); Aspartate Amino Transferase 18 U/L (5-31); Bilirubin Direct < 0.2 mg/dL (0.0-0.5); Bilirubin Total < 0.2 mg/dL (0.0-1.0); Iron 15 mcg/dL (30-160); Percent Iron Saturation 3 % (15-50); Total Iron Binding Capacity 457 mcg/dL (228-428); Total Protein 6.5 g/dL (6.5-8.0); Unsaturated Iron Binding 442 ug/dL
--- NOTE | 2020-08-02 09:05 | PM.EVENT ---
Event Note Date of Service: 08/02/20 (Patient seen this AM for pulmonary consultation . Patient interviewed and examined , lab data and imaging reviewed .complete note is dictated .)
[2020-08-02 09:10] LABS: Ferritin 5 ng/mL (10-250)
[2020-08-02 09:28] LABS: Folate 4.7 ng/mL (> or = 4.0); Vitamin B12 1089 pg/mL (200-900)
--- NOTE | 2020-08-02 10:36 | CONS_ITS ---
DATE OF SERVICE: 08/02/2020 This 80-year-old female is admitted since yesterday with increased symptoms of cough, shortness of breath, and generalized weakness for about 1 week and prior to that she has had symptom of generalized weakness with increased shortness of breath for about a month. She denies history of fever, chills, or chest pain. She denies any excessive expectoration. She denies contact with any sick people. She has continued to smoke about 2/3rd of a pack of cigarettes daily and has been using her O2 at 4 L/minute almost continuously. In the emergency room, her O2 saturation was quite low at 83% on room air and she was moderately tachypneic and tachycardiac. REVIEW OF SYSTEMS: Includes marked generalized weakness in the last 3 to 4 weeks and she denies any chest pain. Denies any fever or chills. Denies any palpitations. Appetite is generally poor, but she denies any nausea or vomiting. PAST MEDICAL HISTORY: The patient is known to have chronic obstructive pulmonary disease for quite a few years and since about 3 years ago, she has been on oxygen 4 L/minute at home. She uses it most of the time, but during the daytime some time takes it off. She is on minimal medication including Atrovent 2 puffs t.i.d. and albuterol q.6 hours p.r.n. In addition, she has a history of chronic back pain with some depression. GERD symptoms. Irritable bowel syndrome. I have also noted in the medical records that she is anemic and she has been labile to have normocytic normochromic anemia. Since her last admission 1 year ago, she has had mild leukocytosis considered to be due to steroids. PERSONAL HISTORY: As noted above, she still smokes 2/3rd of a pack a day. Lives alone. She walks around with a cane and walker. PHYSICAL EXAMINATION: GENERAL: 80-year-old female of a thin build, who is relatively comfortable at this time. VITAL SIGNS: Respiratory rate 16, temperature normal. Her O2 saturation is in mid 90s. EAR, NOSE, THROAT: Examination not remarkable. NECK: No JVD. Carotids normal. Trachea midline. CHEST: Percussion note is hyper-resonant. Breath sounds are diminished all over the chest with prolonged expiratory phase. No active wheezes or crepitations are heard. CARDIAC: PMI is not localized. Heart sounds are normal. No murmur or gallop. Rhythm is regular. ABDOMEN: Flat, soft, nontender. EXTREMITIES: Both legs are thin. There is no pitting edema. Peripheral pulses faintly palpable. DIAGNOSTIC DATA: Chest x-ray shows hyperinflated lung vazquez, but no infiltrate or mass. LABS: Mild leukocytosis with white cell count of 11.7. Of note is the fact that her hemoglobin is 7.7, it has been in the range of 9.6 to 10.5 before. Chemistries show electrolytes normal. BUN 35, creatinine 1.08. This may be due to mild dehydration. Serum iron level is low and total iron binding capacity is 457, which is a little high. COVID-19 test is negative. Blood gases not performed, but she does not have history of CO2 retention. CLINICAL IMPRESSION: 1. Acute exacerbation of chronic obstructive pulmonary disease. 2. Patient does seem to have advanced chronic obstructive pulmonary disease, oxygen dependent. 3. Active smoker. RECOMMENDATIONS: 1. At present, I agree with the treatment for acute exacerbation of COPD. She can be placed on prednisone. In her case, I would say 20 mg a day for about 5 days. 2. DuoNeb updrafts q.6 hours while awake. 3. Smoking cessation. 4. Oxygen 4 L/minute. 5. The patient needs to be followed up as outpatient. Thank you very much for asking me to see this patient. Sincerely, MD TONJA Zuniga/CAITLYN / [phone]
--- NOTE | 2020-08-02 10:57 | MHC.CM.PN ---
CM spoke with daughter/HCP Génesis, requested and received copies of HCP and POwer of [employer] via fax, CM uploaded copies into [employer] and placed in chart. HCP requesting update from nursing, CM gave HCPs name and number to nursing staff. plan: Discharge home vs home w/services
--- NOTE | 2020-08-02 13:08 | PM.EVENT ---
Event Note Date of Service: 08/02/20 Event Note: GI Consult dictated Anemia is c/w iron deficiency. Discussed colonoscopy and EGD with patient, she prefers to defer evaluation until breathing improves. Can arrange as outpatient, if she is agreeable. May benefit from prbc transfusion given underlying COPD.
[2020-08-02] MEDS: predniSONE 20 MG TABLET PO (13:15)
--- NOTE | 2020-08-02 13:37 | CONS_ITS ---
DATE OF SERVICE: 08/02/2020 REFERRING PHYSICIAN: Li Watson MD REASON FOR CONSULTATION: Anemia. 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 Symptoms worsened over 1 week prior to admission. She was evaluated in the emergency department and had lab work obtained, which showed a hematocrit of 29.6 on admission, this was down from 34.7 in March. Since admission, her hematocrit dropped to 24.1 without any signs of bleeding. The patient denies any abdominal pain per se. She has had a history long-standing of irritable bowel syndrome with diarrhea alternating with constipation, tending toward constipation more lately. She has not seen any blood. She does have a history of gastroesophageal reflux disease and has been maintained on omeprazole 20 mg daily as an outpatient. She believes her last sigmoidoscopy that was done many years ago and showed polyps, which she thinks were benign. She has never had an upper endoscopy. PAST MEDICAL HISTORY: 1. Anxiety/depression. 2. COPD. 3. Gastroesophageal reflux disease. 4. Irritable bowel syndrome. 5. Hyperlipidemia. CURRENT MEDICATIONS: Her current medication list is reviewed in the chart. ALLERGIES: SULFA AND ERYTHROMYCIN. FAMILY HISTORY: This is reviewed with the patient and is negative for GI malignancy. SOCIAL HISTORY: There is no current substance abuse. She does smoke. REVIEW OF SYSTEMS: SKIN: No pruritus. HEENT: Negative. CARDIOPULMONARY: No shortness of breath or chest pain. GASTROINTESTINAL: As above. GENITOURINARY: Negative. NEUROPSYCHIATRIC: Negative. PHYSICAL EXAMINATION: GENERAL: Shows a pleasant elderly female, in no acute distress. VITAL SIGNS: Reviewed in electronic medical record and are stable. SKIN: Anicteric. HEENT: No scleral icterus. NECK: Without lymphadenopathy or thyromegaly. LUNGS: Clear. HEART: Regular rate and rhythm. S1, S2. No murmur. ABDOMEN: Soft without focal masses or tenderness. Bowel sounds are present. No organomegaly is noted. EXTREMITIES: Without edema. IMPRESSION: She appears to have iron-deficiency anemia based on her low iron and ferritin numbers. Stool occult blood testing was negative earlier in the year and is pending on this admission. I did discuss with her colonoscopy and possible upper endoscopy given her long-standing history of reflux and the fact that it has been sometime since she had a limited lower GI tract examination. At this time, she prefers to be treated for her underlying COPD and defer any endoscopic evaluation until her breathing is better. This could be done electively as an outpatient if she is agreeable. She may benefit from transfusion of a unit of packed red blood cells to improve her oxygen carrying capacity in the setting of her underlying severe COPD. Thanks for asking me to see her. I will follow her in the hospital with you. MD FRANCISCO JAVIER Mendieta/CAITLYN / [id number]
[2020-08-02] MEDS: Furosemide 20 MG/2 ML VIAL IVPUSH (20:18)
[2020-08-02] MEDS: Atorvastatin Calcium 10 MG TABLET PO (20:18)
[2020-08-02] MEDS: polyethylene glycoL 3350 17 GM POWD.PACK PO (20:19)
[2020-08-02] MEDS: traMADoL HCL 50 MG TABLET PO (20:38)
[2020-08-02] MEDS: Artificial Tears 15 ML DROPS 1 DROP EYE-BOTH (21:21)
[2020-08-03] VITALS (10 sets, daily range): BP systolic 102–174; BP diastolic 59–79; PULSE 84–106; RESP 18–20; TEMP 36.2–36.7; O2SAT 92–100
[2020-08-03] MEDS: levoFLOXacin/D5W 750 MG/150 ML PIGGYBACK 100 MG IV (03:49)
[2020-08-03] MEDS: Artificial Tears 15 ML DROPS 1 DROP EYE-BOTH ×2 (03:49→20:19)
[2020-08-03] MEDS: Acetaminophen 325 MG TABLET 650 MG PO ×2 (05:26→20:18)
[2020-08-03] MEDS: Omeprazole 20 MG CAPSULE.DR PO ×2 (05:27→15:29)
[2020-08-03] MEDS: Albuterol/Iprat 2.5/0.5MG 3 ML AMPUL.NEB INHALE ×4 (07:21→20:43)
[2020-08-03 08:11] LABS: Hematocrit 32.9 % (37-47); Hemoglobin 10.3 g/dl (12.0-16.0)
[2020-08-03] MEDS: DULoxetine HCl 60 MG CAPSULE.DR PO (08:50)
[2020-08-03] MEDS: 0.9 % Sodium Chloride Flush 3 ML SYRINGE IVFLUSH ×3 (08:50→20:19)
[2020-08-03] MEDS: polyethylene glycoL 3350 17 GM POWD.PACK PO ×2 (08:50→20:17)
--- NOTE | 2020-08-03 10:12 | PM.PNPUL ---
Subjective Subjective Date of Service: 08/03/20 Principal diagnosis: copd/ iNCREASED sob . Interval history: THIS 80 YEARS OLD FEMALE WITH HISTORY OF 0 ADVANCED CHRONIC OBSTRUCTIVE PULMONARY DISEASE. CHEST X-RAY SHOWS VERY HYPERINFLATED LUNGS, BUT NO EVIDENCE OF ANY PNEUMONIA. SHE WAS ADMITTED BECAUSE OF INCREASED SHORTNESS OF BREATH BUT IT SEEMS TO BE MORE DUE TO ANEMIA, SHE HAS HAD NO HISTORY OF FEVER CHILLS OR EXPECTORATION. SHE HAD TO 1 UNIT OF PACKED CELLS AND HEMOGLOBIN IS UP TO 10.3 G. AND SHE IS FEELING BETTER. BY HER BREATHING SEEMS TO BE BACK TO HER BASELINE. SHE DOES USE OXYGEN ALL THE TIME 3 L /MINUTE. Objective Data Labs CBC & Chem 7: 08/03/20 07:50 08/02/20 04:13 Labs: Laboratory Results - last 24 hr 08/02/20 08/03/20 08:46 07:50 Hgb 10.3 L D Hct 32.9 L D Blood Type O Positive Antibody Screen NEGATIVE Crossmatch See Detail Microbiology Microbiology Results: Microbiology 07/31/20 21:41 Blood - Venous Blood Culture - Preliminary No growth after 48 hours. 07/31/20 21:41 Blood - Venous Blood Culture - Preliminary No growth after 48 hours. Physical Exam Vital Signs: Vital Signs: Last Vital Signs Temp 97.4 F 08/03/20 07:41 Pulse 86 08/03/20 07:41 Resp 18 08/03/20 07:41 BP 159/66 H 08/03/20 07:41 Pulse Ox 98 08/03/20 07:41 Body Mass Index 20.0 Const: Other: SHORT OF BREATH DURING EXAMINATION BUT SHE IS ALERT AND ORIENTATED. DOES NOT SEEM TO BE IN ANY ACUTE DISTRESS AT THIS TIME HENMT: Other: NO SIGNIFICANT ABNORMALITY IS NOTED. Neck: Neck: Yes supple and Yes no JVD Thyroid: Thyroid normal Chest: Chest palpation & inspection: normal inspection of the chest and normal palpation of entire chest wall Resp: Auscultation: diminished lung sounds Percussion: percussion normal (HYPERRESONANT.) Cardio: Rate: regular rate Heart sounds: no gallops and no murmurs GI: Palpation (GI): Soft to palpation, nontender, No hepatosplenomegaly present and no masses Back/Spine/Pelvis: Thoracic/Lumbar Spine: thoracic and lumbar spine normal to inspection Neuro: General: No gait normal (IMPAIRED GAIT) and no focal motor deficits Assessment and Plan Assessment and plan (1) Anemia: Problem details: PATIENT HAS CHRONIC ANEMIA 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 HAS BEEN SEEN BY DR. GANDHI, WHO RECOMMENDED TRANSFUSION OF 1 PACK UP PACKED CELLS. ANEMIA IS MUCH IMPROVED AFTER THAT WITH HEMOGLOBIN 10.3 G. PATIENT IS FEELING BETTER WITH INCREASED STRENGTH Status: Acute (2) Respiratory failure with hypoxia: Problem details: SHE HAS CHRONIC HYPOXEMIA TREATED WITH OXYGEN SUPPLEMENT USUALLY 3 L/MINUTE AND WITH ANY PHYSICAL ACTIVITY SHE MAY HAVE TO INCREASE TO 4 L/MINUTE. Status: Acute (3) Acute exacerbation of chronic obstructive airways disease: Problem details: SHE DOES HAVE CHRONIC OBSTRUCTIVE PULMONARY DISEASE, DOES NOT SEEM TO HAVE ANY ACUTE RESPIRATORY INFECTION AT THIS TIME, INCREASED SHORTNESS OF BREATH WAS PROBABLY MORE DUE TO ANEMIA THAN ACUTE EXACERBATION OF COPD. Status: Acute Assessment and Plan: I RECOMMEND THAT WE CAN DC LEVAQUIN. NO NEED OF ORAL STEROIDS. CONTINUE BREO -100 1 INHALATION DAILY, AND USE ALBUTEROL 2 PUFFS Q 6 HOURS P.R.N.. Time Spent With Patient Time: Total time spent is greater than 50% in coordination of care (as documented) at patient's floor/unit and/or counseling patient: Time with patient: 15 - 24 minutes
--- NOTE | 2020-08-03 12:14 | MHC.CM.PN ---
Addendum entered by Kelsey Henderson RN 08/03/20 16:05: CM SPOKE WITH DAUGHTER/HCP JOSE F PER PT REQUEST, DUE TO FIRST CHOICE OF [facility] ACCEPTING PENDING BED AVAILABILITY DAUGHTER HAS CHOSEN [facility] SECOND CHOICE. Addendum entered by Kelsey Henderson RN 08/03/20 12:48: CM RECEIVED CALL FROM DAUGHTER/HCP JOSE F, FAMILIES FIRST CHOICE IS [facility] DUE TO BEING THERE MULTIPLE TIMES, CM WILL KEEP DAUGHTER/HCP UPDATED. Addendum entered by Kelsey Henderson RN 08/03/20 12:33: MESSAGE LEFT FOR DAUGHTER/HCP JOSE F AT 12:20PM. REFERRALS SENT TO [facility], [facility] Original Note: CM MET WITH PATIENT TO DISCUSS SHORT TERM REHAB, PATIENT IS WILLING TO GO SINCE PHYSICIAN AND PHYSICAL THERAPY ARE RECOMMENDING IT, PATIENT REPORTS NO PREFERENCE AND WOULD LIKE CM TO NOTIFY DAUGHTER/HCP, REFERRALS TO BE PLACED.
--- NOTE | 2020-08-03 13:21 | HO.PM.IMPN ---
Subjective Subjective Date of Service: 08/03/20 Physical Exam Vital Signs: Vital Signs: Last Vital Signs Temp 97.5 F 08/03/20 11:36 Pulse 84 08/03/20 11:36 Resp 19 08/03/20 11:36 BP 174/79 H 08/03/20 11:36 Pulse Ox 97 08/03/20 11:36 Body Mass Index 20.0 Physical exam: constitutional : sob seems improving Cvs: rrr, [id number] , no murmur res: seems fair air entry , no rales or wheezing abd: no rebound or guarding ,nt, bs present. ext pulses present , no cyanosis neuro: axo3 , nonfocal. Objective Data Current Medications Generic Name Dose Route Start Last Admin Trade Name Freq PRN Reason Stop Dose Admin Acetaminophen 650 mg 08/01/20 01:38 08/03/20 05:26 Acetaminophen 325 Mg Tablet PO 650 mg Q6H PRN Administration Pain, Mild (Pain Scale 1-3) Albuterol/Ipratropium 3 ml 08/01/20 08:00 08/03/20 11:15 Albuterol/Iprat 2.5/0.5mg 3 Ml Ampul.Neb INHALE 3 ml RQ4H WHILE AWAKE CHUY Administration Albuterol/Ipratropium 3 ml 08/01/20 01:38 Albuterol/Iprat 2.5/0.5mg 3 Ml Ampul.Neb INHALE RQ4H PRN Shortness of Breath/Wheezing Artificial Tears 1 drop 08/02/20 20:17 08/03/20 03:49 Artificial Tears 15 Ml Drops EYE-BOTH 1 drop Q4H PRN Administration Dry Eyes Aspirin 81 mg 08/01/20 09:00 08/03/20 06:37 Aspirin Enteric Coated 81 Mg Tablet. PO Not Given DAILY CHUY Atorvastatin Calcium 10 mg 08/01/20 21:00 08/02/20 20:18 Atorvastatin Calcium 10 Mg Tablet PO 10 mg BEDTIME CHUY Administration Docusate Sodium 100 mg 08/01/20 01:38 08/02/20 05:40 Docusate Sodium 100 Mg Capsule PO 100 mg DAILY PRN Administration constipation Duloxetine HCl 60 mg 08/01/20 09:00 08/03/20 08:50 Duloxetine Hcl 60 Mg Capsule. PO 60 mg DAILY CHUY Administration Levofloxacin 750 mg in 150 mls @ 100 mls/hr 08/03/20 04:00 08/03/20 05:31 Levaquin IV Infused Q48H CHUY Infusion Omeprazole 20 mg 08/02/20 09:00 08/03/20 05:27 Omeprazole 20 Mg Capsule. PO 20 mg BID@0630,1630 CHUY Administration Ondansetron HCl 4 mg 08/01/20 01:38 Ondansetron Hcl 4 Mg/2 Ml Vial IVPUSH Q8H PRN Nausea and Vomiting Polyethylene Glycol 17 gm 08/02/20 21:00 08/03/20 08:50 Polyethylene Glycol 3350 17 Gm Powd.Pack PO 17 gm BID CHUY Administration Sodium Chloride 3 ml 08/01/20 08:00 08/03/20 08:50 0.9 % Sodium Chloride Flush 3 Ml Syringe IVFLUSH 3 ml QSHIFT CHUY Administration Labs CBC & Chem 7: 08/03/20 07:50 08/02/20 04:13 Microbiology Microbiology Results: Microbiology 07/31/20 21:41 Blood - Venous Blood Culture - Preliminary No growth after 48 hours. 07/31/20 21:41 Blood - Venous Blood Culture - Preliminary No growth after 48 hours. Assessment and Plan (1) Respiratory failure with hypoxia: Status: Acute (2) Anemia: Status: Acute Assessment and Plan: 80-year-old female with past medical history of COPD who presents to the hospital with COPD exacerbate 1. sepsis-initailly thought to be secondary to COPD exacerbation, no pneumonia will start on antibiotics , steroids, and breathing treatment follow blood cultures negative at 48 hours 2. acute COPD exacerbation-seems improving has dyspnea, cough, sputum production COVID-19 negative, influenza and RSV negative no recent sick contacts or travel, afebrile, chest x-ray showing COPD with no evidence of pneumo continue DuoNeb q.i.d., p.r.n.,levofloxacin po prednisone. pulmonary following 3. acute on chronic anemia: h/h droping to 7.5 , s/p prbc h/h 10.3/32.9, denies any melena or bright red blood per rectum - ferritin is low iron studies , b12 and folate , type and cross d/c sc heparin, hold asa continue ppi to bid Discussed with GI IV will add 1 PRBC. May need further GI workup . leukocytosis most likely secondary to COPD exacerbation, probable steriods related . will follow CBC
[2020-08-03] MEDS: predniSONE 20 MG TABLET PO (13:50)
[2020-08-03 16:29] LABS: COVID-19 Test Negative (Negative)
[2020-08-03] MEDS: Atorvastatin Calcium 10 MG TABLET PO (20:16)
[2020-08-03] MEDS: traMADoL HCL 50 MG TABLET PO (21:39)
[2020-08-04 03:32] VITALS: BP 150/73; PULSE 89; RESP 19; TEMP 36.4; O2SAT 100
--- NOTE | 2020-08-04 04:39 | PC.NURSE ---
pt unable to void, bladder scanned for 519 ml, straight cathed pt for 650 ml at 0415.
[2020-08-04] MEDS: Omeprazole 20 MG CAPSULE.DR PO (06:11)
[2020-08-04] MEDS: Albuterol/Iprat 2.5/0.5MG 3 ML AMPUL.NEB INHALE (07:35)
[2020-08-04 07:49] VITALS: BP 160/55; PULSE 65; RESP 22; TEMP 36.5; O2SAT 99
[2020-08-04] MEDS: DULoxetine HCl 60 MG CAPSULE.DR PO (08:48)
[2020-08-04] MEDS: predniSONE 20 MG TABLET PO (08:49)
[2020-08-04] MEDS: Docusate Sodium 100 MG CAPSULE PO (08:49)
[2020-08-04] MEDS: polyethylene glycoL 3350 17 GM POWD.PACK PO (08:49)
[2020-08-04] MEDS: 0.9 % Sodium Chloride Flush 3 ML SYRINGE IVFLUSH (08:50)
--- NOTE | 2020-08-04 09:52 | MHC.CM.PN ---
PT DISCHARGING TO [facility] IN [place] INN WITH AN 11AM BLS TRANSPORT VIA [facility]. DAUGHTER/HCP JOSE F NOTIFIED AND CM WILL FORWARD D/C SUMMARY WHEN IT IS READY.
--- NOTE | 2020-08-04 10:26 | P.DS_ITS ---
DS: Providers Provider Date of admission: 08/01/20 00:30 Primary care physician: Unknown Physician Consults: 08/01/20 16:36 Consult to Pulmonology Routine Consulting Provider: Kody Tobar Reason for consultation: Copd excerebation Has provider been notified: No 08/02/20 08:10 Consult to Gastroenterology Routine Consulting Provider: Rene Stevenson Reason for consultation: Worsening acute on ch anemia normocytic.unclear etiology Has provider been notified: No DS: Diagnosis Discharge Diagnosis (1) Respiratory failure with hypoxia: Status: Acute (2) Anemia: Status: Acute DS: Medications Discharge Medications Home Medications: Home Medications Medication Instructions Recorded Confirmed albuterol sulfate 2 puff PO Q6H PRN 05/15/20 07/31/20 aspirin [Aspir-81] 81 mg PO DAILY 05/15/20 07/31/20 docusate sodium 1 cap PO DAILY PRN 05/15/20 07/31/20 duloxetine 60 mg PO DAILY 05/15/20 07/31/20 fluticasone propionate 1 - 2 spray INTRANASAL DAILY 05/15/20 07/31/20 ipratropium bromide [Atrovent HFA] 2 puff INHALATION TID 05/15/20 07/31/20 omeprazole 20 mg PO DAILY 05/15/20 07/31/20 simvastatin 20 mg PO DAILY 05/15/20 07/31/20 DS: Summary Hospital Course Hospital Course: 80-year-old female with past medical history of COPD who presents to the hospital complaints shortness of breath, cough, and generalized weakness for the past 1 month worsening over the last 1 week. She denies any recent sick contacts or travel. She has not had any headache, change in vision, any chest pain, no palpitations, no fever but has been feeling chills, no diarrhea or constipation, no nausea or vomiting, no abdominal pain. No urinary symptoms and no lower extremity edema or pain. Denies any orthopnea or PND. She is a current smoker and smokes about half to 2/3 of a pack. On arrival to the ED patient was found to be hypoxic with an O2 of 83% on room air, patient currently on 4 L satting 96%. Other vitals significant for heart rate of 102 and respiratory rate of 30. Labs are significant 11,000, hemoglobin of 9, baseline around 10, hematocrit short 9.6, BUN of 7 6, creatinine of 1.15, ferritin of 7, initial high sensitivity troponin of 63.5, not change on repeat, Chest x-ray showed hyperinflated with chronic appearing reticular markings similar to previous x-ray with no acute serum propose process Patient will be admitted for COPD exacerbation Past medical history: COPD, hyperlipidemia, anxiety depression. Hospital Course problem swanson section: Initially was thought to be sepsis secondary to COPD exacerbation: Patient was given nebs, steroids and Levaquin antibiotic initially and subsequently switched to p.o. doxycycline patient does not have a pneumonia on chest imaging Ana how are you surgery have fine low urine member that lady we send. Patient also given prednisone 20 mg daily x2 more days upon discharge. Anemia swanson: Seen by GI recommended to continue PPI, patient is outpatient GI workup, patient got 1 unit of PRBC: Monitor CBC out patiently and further management as per PCP, patient need outpatient GI workup with Dr. Lucio discussed with the patient she wants done out patiently. Her iron studies probably has iron def since he will add iron pills. Will hold off aspirin for for 2 more days and monitor CBC in 2 days if H&H stable then consider reintroducing asa. Patient had 1 episode of urinary retention overnight: Responded well with straight cath. Please monitor PVRs and bladder scan in rehab and use p.r.n. straight cath, also will add Flomax for now. If does not improve urinary retention might consider urology evaluation in rehab. Above management discussed with the patient in detail length she understand and in agreement with the above plan, time spent 50 minutes and 50% time spent on counseling. Significant findings: As above. Procedures performed: None. Treatment and response: As above. Complications: None. Time Spent with Patient Time attestation: Total time spent providing and/or coordinating discharge services: Physical Exam Vital Signs: Vital Signs: Last Vital Signs Temp 97.7 F 08/04/20 07:49 Pulse 65 08/04/20 07:49 Resp 22 H 08/04/20 07:49 BP 160/55 H 08/04/20 07:49 Pulse Ox 99 08/04/20 07:49 Body Mass Index 20.0 DS: Data Data Completed and Pending Labs on day of discharge: 07/31/20 21:11 ECG 12 lead EKG Stat EKG Documentation DIRECTED 07/31/20 21:16 XR chest 1V Stat 07/31/20 21:30 SARS-CoV2/FLU/RSV Stat 07/31/20 21:33 Albuterol Sulfate [Ventolin] 4 puff INHALE ONCE ONE dexAMETHasone sod phosphate [Decadron] 4 mg IVPUSH ONCE ONE 07/31/20 21:40 Lactic Acid Stat 07/31/20 21:41 Complete Blood Count Auto Diff Stat 07/31/20 21:42 B Type Natriuretic Peptide Stat Basic Metabolic Panel Stat D Dimer Stat Ferritin Stat Lactate Dehydrogenase Stat Liver Panel Stat Partial Thromboplastin Time Stat Prothrombin Time INR Stat Troponin-I High Sensitivity Stat 07/31/20 23:44 Acetaminophen [Tylenol] 650 mg PO ONCE ONE 07/31/20 23:52 cefTRIAXone sodium [Rocephin] 1 gm 0.9 % Sodium Chloride [Ns] 50 ml IV ONCE 07/31/20 23:53 Troponin-I High Sensitivity Stat 07/31/20 23:56 cefTRIAXone sodium [Rocephin] 1 gm .ROUTE .STK-MED ONE 08/01/20 00:24 Transfer Order Routine 08/01/20 03:15 methylPREDNISolone Sod Succ/PF [SOLU-MedroL] 40 mg IVPUSH NOW STA 08/01/20 03:19 levoFLOXacin/D5W [Levaquin] 750 mg in 150 ml IV NOW 08/01/20 06:30 Omeprazole [PriLOSEC] 20 mg PO DAILY@0630 08/01/20 10:00 Heparin Sodium,Porcine 5,000 unit SUBCUT Q12H methylPREDNISolone Sod Succ/PF [SOLU-MedroL] 40 mg IVPUSH Q12H 08/02/20 04:13 Basic Metabolic Panel Routine Complete Blood Count Auto Diff Routine Ferritin Routine Folate Routine IRON PROFILE Routine Liver Panel Routine SLIDE REVIEW Routine Vitamin B12 Routine 08/02/20 06:39 Hemoglobin and Hematocrit DAILY 08/02/20 08:04 Add Laboratory Test Urgent 08/02/20 08:46 Red Blood Cells Routine Type and Screen Urgent 08/02/20 12:23 predniSONE 20 mg PO ONCE ONE 08/02/20 16:37 Acetaminophen [Tylenol] 650 mg PO ONCE ONE 08/02/20 16:38 Furosemide [Lasix] 20 mg IVPUSH ONCE ONE 08/02/20 20:17 traMADoL HCL [Ultram] 50 mg PO ONCE ONE 08/03/20 04:00 levoFLOXacin/D5W [Levaquin] 750 mg in 150 ml IV Q48H 08/03/20 07:50 Hemoglobin and Hematocrit DAILY 08/03/20 13:34 predniSONE 20 mg PO ONCE ONE 08/03/20 15:35 COVID-19 ID NOW (Manzo) Routine 08/03/20 21:25 traMADoL HCL [Ultram] 50 mg PO ONCE ONE 08/04/20 09:13 Doxycycline Hyclate [Vibramycin] 100 mg PO ONCE ONE Laboratory Last Values WBC 11.7 X10*3/uL (4.8-10.8) H 08/02/20 04:13 RBC 3.08 X10*6/uL (4.20-5.50) L 08/02/20 04:13 Hgb 10.3 g/dl (12.0-16.0) L D 08/03/20 07:50 Hct 32.9 % (37-47) L D 08/03/20 07:50 MCV 83.1 fL (80-98) 08/02/20 04:13 MCH 25.0 pg (27.0-33.0) L 08/02/20 04:13 MCHC 30.1 g/dl (31.0-35.0) L 08/02/20 04:13 RDW 16.3 % (11.0-16.0) H 08/02/20 04:13 Plt Count 430 X10*3/uL (160-400) H 08/02/20 04:13 MPV 10.0 fL (9.4-12.3) 08/02/20 04:13 Immature Gran % (Auto) 0.6 % (0.0-0.4) H 08/02/20 04:13 Neut % (Auto) 89.9 % (45-73) H 08/02/20 04:13 Lymph % (Auto) 5.5 % (20-40) L 08/02/20 04:13 [place] % (Auto) 3.8 % (2-11) 08/02/20 04:13 Eos % (Auto) 0.0 % (0-4) 08/02/20 04:13 Baso % (Auto) 0.2 % (0-2) 08/02/20 04:13 Lymph # (Auto) 0.6 X10*3/uL (1.2-4.9) L 08/02/20 04:13 [place] # (Auto) 0.5 X10*3/uL (0.1-1.2) 08/02/20 04:13 Eos # (Auto) 0.0 X10*3/uL (0.0-0.4) 08/02/20 04:13 Baso # (Auto) 0.0 X10*3/uL (0.0-0.2) 08/02/20 04:13 Abs Immat Gran (auto) 0.07 X10*3/uL (0.00-0.03) H 08/02/20 04:13 Absolute Neuts (auto) 10.6 X10*3/uL (2.0-8.3) H 08/02/20 04:13 Absolute Nucleated RBC 0.000 X10*3/uL (0.0-0.012) 08/02/20 04:13 Nucleated RBC % (auto) 0.0 /100WBC (0.0-0.2) 08/02/20 04:13 Smear Tech's Comments VERIFIED 08/02/20 04:13 PT 11.9 SEC (10.8-13.0) 07/31/20 21:42 INR 1.0 (0.9-1.1) 07/31/20 21:42 APTT 30.4 SEC (24.1-38.0) 07/31/20 21:42 D-Dimer 398 NG/ML 07/31/20 21:42 Sodium 137 mmol/L (135-145) 08/02/20 04:13 Potassium 4.7 mmol/l (3.3-5.1) 08/02/20 04:13 Chloride 100 mmol/L (96-108) 08/02/20 04:13 Carbon Dioxide 29 mmol/L (22-29) 08/02/20 04:13 Anion Gap 13 (-) 08/02/20 04:13 BUN 35 mg/dL (9-16) H 08/02/20 04:13 Creatinine 1.08 mg/dL (0.5-1.4) 08/02/20 04:13 Estim Creat Clear Calc 30.3 08/02/20 04:13 Estimated GFR 49 08/02/20 04:13 Random Glucose 124 mg/dL (60-115) H 08/02/20 04:13 Lactic Acid 2.0 mmol/L (0.5-2.0) 07/31/20 21:40 Calcium 9.0 mg/dL (8.4-10.2) 08/02/20 04:13 Iron 15 mcg/dL (30-160) L 08/02/20 04:13 TIBC 457 mcg/dL (228-428) H 08/02/20 04:13 % Saturation 3 % (15-50) L 08/02/20 04:13 Unsat Iron Binding 442 ug/dL 08/02/20 04:13 Ferritin 5 ng/mL (10-250) L 08/02/20 04:13 Total Bilirubin < 0.2 mg/dL (0.0-1.0) 08/02/20 04:13 Direct Bilirubin < 0.2 mg/dL (0.0-0.5) 08/02/20 04:13 AST 18 U/L (5-31) 08/02/20 04:13 ALT 10 U/L (0-31) 08/02/20 04:13 Alkaline Phosphatase 72 U/L (39-117) 08/02/20 04:13 Lactate Dehydrogenase 201 U/L (122-220) 07/31/20 21:42 Troponin I High Sens 63.2 ng/L (<3.5-17.0) H 07/31/20 23:53 B-Natriuretic Peptide 264 pg/mL (<100) H 07/31/20 21:42 Total Protein 6.5 g/dL (6.5-8.0) 08/02/20 04:13 Albumin 3.5 g/dL (3.5-5.0) 08/02/20 04:13 Vitamin B12 1089 pg/mL (200-900) H 08/02/20 04:13 Folate 4.7 ng/mL (> or = 4.0) 08/02/20 04:13 Coronavirus (PCR) NEGATIVE (Negative) 07/31/20 21:30 COVID-19 (ROSEMARY) Negative (Negative) 08/03/20 15:35 COVID-19 Clin Com See Note 08/03/20 15:35 Influenza Type A (PCR) NEGATIVE (Negative) 07/31/20 21:30 Influenza Type B (PCR) NEGATIVE (Negative) 07/31/20 21:30 RSV RNA Qual (PCR) NEGATIVE (Negative) 07/31/20 21:30 Blood Type O Positive 08/02/20 08:46 Antibody Screen NEGATIVE 08/02/20 08:46 Crossmatch See Detail 08/02/20 08:46 Preliminary micro results at discharge 07/31/20 21:41 Blood Culture - Preliminary Blood - Venous No growth after 48 hours. 07/31/20 21:41 Blood Culture - Preliminary Blood - Venous No growth after 48 hours. Discharge Plan Discharge Patient Disposition: er SNF Referrals: [facility] [Other] (BLS TRANSPORTATION) [facility] [Outside] (PULMONARY REHAB AND PHYSICAL THERAPY) Physician,Unknown [Primary Care Provider] - Discharge Medications: New prednisone 20 mg tablet 20 mg PO DAILY Qty: 2 RF: 0 doxycycline monohydrate 100 mg capsule 100 mg PO BID Qty: 10 RF: 0 tamsulosin [Flomax] 0.4 mg capsule 0.4 mg PO DAILY Qty: 10 RF: 0 omeprazole 20 mg Capsule,Delayed Release(Dr/Ec) 20 mg PO BID@0630,1630 Qty: 60 RF: 0 ferrous sulfate [Iron (ferrous sulfate)] 325 mg (65 mg iron) tablet 325 mg PO BID Qty: 60 RF: 0 Continued Atrovent HFA 17 mcg/actuation HFA aerosol inhaler 2 puff inhalation TID RF: 0 simvastatin 20 mg tablet 20 mg PO DAILY RF: 0 docusate sodium 100 mg capsule 1 cap PO DAILY PRN (Reason: constipation) RF: 0 albuterol sulfate 90 mcg/actuation HFA aerosol inhaler 2 puff PO Q6H PRN (Reason: wheezing) RF: 0 fluticasone propionate 50 mcg/actuation spray,suspension 1 - 2 spray intranasal DAILY RF: 0 duloxetine 60 mg capsule,delayed release(DR/EC) 60 mg PO DAILY RF: 0 Held aspirin [Aspir-81] 81 mg Tablet,Delayed Release (Dr/Ec) 81 mg PO DAILY RF: 0 Hold Instructions: Resume on 08/06/20. Discontinued omeprazole 20 mg capsule,delayed release(DR/EC) 20 mg PO DAILY RF: 0 Discharge Orders: Discharge Order (Routine); Ordered 08/04/20 Ordered By: Li Watson Diet: advance to usual diet Activity on Discharge: As tolerated Visit Report Forms: Patient Portal Discharge page Care Plan Goals: Initially was thought to be sepsis secondary to COPD exacerbation: Patient was given nebs, steroids and Levaquin antibiotic initially and subsequently switched to p.o. doxycycline patient does not have a pneumonia on chest imaging Ana how are you surgery have fine low urine member that lady we send. Patient also given prednisone 20 mg daily x2 more days upon discharge. Anemia swanson: Seen by GI recommended to continue PPI, patient is outpatient GI workup, patient got 1 unit of PRBC: Monitor CBC out patiently and further management as per PCP, patient need outpatient GI workup with Dr. Lucio discussed with the patient she wants done out patiently. Her iron studies probably has iron def since he will add iron pills. Will hold off aspirin for for 2 more days and monitor CBC in 2 days if H&H stable then consider reintroducing asa. Health Concerns: As above. Plan of Treatment: As above.
== END 2020-08-04 12:13 | disposition skilled nursing facility (03) | DRG 872 ==
LOC: HO.ED 23:57 → HO.S3 08-01 01:27
PROVIDERS: Admitting Provider Internal Medicine; Emergency Provider Internal Medicine; Visit Provider Internal Medicine
DX: A41.9 Sepsis, unspecified organism (principal); J44.1 Chronic obstructive pulmonary disease with (acute) exacerbation; K92.2 Gastrointestinal hemorrhage, unspecified; K21.9 Gastro-esophageal reflux disease without esophagitis; F17.210 Nicotine dependence, cigarettes, uncomplicated; Z71.6 Tobacco abuse counseling; Z99.81 Dependence on supplemental oxygen; Z20.828 Contact with and (suspected) exposure to other viral communicable diseases; D50.9 Iron deficiency anemia, unspecified; F41.9 Anxiety disorder, unspecified; F32.9 Major depressive disorder, single episode, unspecified; Z88.2 Allergy status to sulfonamides; Z79.52 Long term (current) use of systemic steroids; Z79.82 Long term (current) use of aspirin; Z79.899 Other long term (current) drug therapy
CPT/HCPCS: 0241U; 36415; 71045; 80048; 80076; 82607; 82728; 82746; 83540; 83605; 83615; 83880; 84484; 85014; 85018; 85025; 85379; 85610; 85730; 86850; 86900; 86901; 86920; 86923; 87040; 87635; 93005; 94640; 96365; 96375; 97162; 99284; 99285; J0696; J1100; J1940; J1956; J2920; P9016

== ENCOUNTER 2021-04-12 22:36 | Inpatient (IN) | payer MEDICARE, SELFPAY ==
--- NOTE | ~2021-04-12 | XR_ITS ---
EXAMINATION: XR CHEST CLINICAL INFORMATION: Shortness of breath COMPARISON: 07/31/2020 TECHNIQUE: Frontal view of the chest was obtained. FINDINGS: Chronic coarse interstitial markings. No focal consolidation or mass. No pleural effusion or pneumothorax. Calcified aortic arch. Normal heart size. Osteopenia. XR/XR chest 1V IMPRESSION: No acute pulmonary disease. Chronic coarse interstitial markings.
--- NOTE | ~2021-04-12 | CT_ITS ---
EXAMINATION: CT HEAD WITHOUT CONTRAST CLINICAL INFORMATION: Headache COMPARISON: Head CT on 05/14/2020 TECHNIQUE: Contiguous axial imaging was performed from the skull base to vertex without intravenous administration of contrast. This CT examination was performed using dose optimization techniques as appropriate, variously including the following: *Automated exposure control *Adjustment of mA and/or kV according to patient size (this includes techniques or standardized protocols for targeted exams where dose is matched to indication/reason for exam; i.e. extremities or head) *Use of iterative reconstruction technique DLP: 689 mGy-cm FINDINGS: There is no evidence of acute intracranial hemorrhage or territorial infarction. No abnormal mass effect or midline shift is seen. Mead to white matter differentiation is well preserved. No extra-axial fluid collections are identified. The ventricles and sulci are mildly prominent consistent with age related volume loss. .. There are patchy periventricular and subcortical white matter changes, which are nonspecific, but likely represent chronic microangiopathic change in a patient of this age. The osseous structures and soft tissues are normal. The mastoid air cells and visualized portions of the paranasal sinuses are well aerated. Prior bilateral cataract surgery. CT/CT head/brain wo con IMPRESSION: No acute intracranial pathology.
[2021-04-12 22:59] VITALS: BP 109/50; PULSE 101; RESP 44; TEMP 36.8; O2SAT 98; BMI 17.6
--- NOTE | 2021-04-12 23:03 | ECG_ITS ---
Test Reason : SOB Blood Pressure : / mmHG Vent. Rate : 096 BPM Atrial Rate : 096 BPM P-R Int : 162 ms QRS Dur : 066 ms QT Int : 364 ms P-R-T Axes : 081 054 088 degrees QTc Int : 459 ms Normal sinus rhythm with sinus arrhythmia Normal ECG When compared with ECG of 31-JUL-2020 21:26, No significant change was found Referred By: Pat Gudino Electronically Signed By:KATE MASSEY
--- NOTE | 2021-04-12 23:05 | ED_ITS ---
HPI - General Adult General Chief complaint: Dyspnea Stated complaint: DIFFICULTY BREATHING Time Seen by Provider: 04/12/21 22:40 Source: patient and EMS Mode of arrival: EMS Limitations: no limitations History of Present Illness HPI narrative: 81-year-old female came in by ambulance, patient lives home independently patient with a history of COPD and actively smoking, patient use 3 L of oxygen 04/03, patient could not get the oxygen to operate today and called 911, patient otherwise declined any abnormal breathing pattern from her baseline, no fever, no chills, patient has been falling at home which she think because 1 of the medication she used to take make her dizzy and falling down. Patient thinks that she is slightly dehydrated, but reportedly she has been having normal p.o. intake. Patient declined any exposure to a sick contact claim that she has been home, patient did not receive her COVID vaccination. Related Data Home Medications Medication Instructions Recorded Confirmed albuterol sulfate 90 mcg/actuation 2 puff PO Q6H PRN 05/15/20 07/31/20 aerosol inhaler aspirin 81 mg tablet,delayed 81 mg PO DAILY 05/15/20 07/31/20 release docusate sodium 100 mg capsule 1 cap PO DAILY PRN 05/15/20 07/31/20 duloxetine 60 mg capsule,delayed 60 mg PO DAILY 05/15/20 07/31/20 release fluticasone propionate 50 1 - 2 spray INTRANASAL DAILY 05/15/20 07/31/20 mcg/actuation nasal spray,suspension ipratropium bromide 17 2 puff INHALATION TID 05/15/20 07/31/20 mcg/actuation HFA aerosol inhaler (Atrovent HFA) simvastatin 20 mg tablet 20 mg PO DAILY 05/15/20 07/31/20 Previous Rx's Medication Instructions Recorded doxycycline monohydrate 100 mg 100 mg PO BID #10 cap 08/04/20 capsule ferrous sulfate 325 mg (65 mg 325 mg PO BID #60 tab 08/04/20 iron) tablet (Iron (ferrous sulfate)) omeprazole 20 mg capsule,delayed 20 mg PO BID@0630,1630 #60 cap 08/04/20 release prednisone 20 mg tablet 20 mg PO DAILY #2 tab 08/04/20 tamsulosin 0.4 mg capsule (Flomax) 0.4 mg PO DAILY #10 cap 08/04/20 Allergies Allergy/AdvReac Type Severity Reaction Status Date / Time Sulfa (Sulfonamide Allergy Unknown HIVES Verified 04/12/21 22:58 Antibiotics) erythromycin base AdvReac Mild GI UPSET Verified 04/12/21 22:58 [ERYTHROMYCIN BASE] Review of Systems Review of Systems: All other systems are reviewed and are negative Constitutional: Reports as per HPI and Reports no additional constitutional complaints Eyes: Reports as per HPI and Reports no additional eye complaints Reports system reviewed and no additional complaints, except as documented Cardiovascular: Reports as per HPI and Reports no additional cardiovascular c omplaints Respiratory: Reports as per HPI and Reports no additional respiratory complaints Gastrointestinal: Reports as per HPI and Reports no additional gastrointestinal complaints Genitourinary: Reports no additional female genitourinary complaints Musculoskeletal: Reports no additional musculoskeletal complaints Skin/Breast: Reports system reviewed and no additional complaints, except as docu Psychiatric: Reports no additional psychiatric complaints Endocrine: Reports no additional endocrine complaints Hematologic/Lymphatic: Reports no additional hematologic/lymphatic complaints Allergic/Immunologic: Reports no additional allergic/immunologic complaints Reports system reviewed and no additional complaints, except as documented and Reports Abnormal speech present [facility] Past Medical History Medical History COPD (chronic obstructive pulmonary disease) COPD (chronic obstructive pulmonary disease) Depression GERD (gastroesophageal reflux disease) IBS (irritable bowel syndrome) Respiratory failure with hypoxia Social History Social History Household Members: None Housing: House Do you presently have visiting nurse or other home services: No Alcohol intake: never Second Hand Smoke Exposure: No Advance Directives: No Advance Directives Information Provided: No service: No Current occupational status: retired Physical Exam Vital Signs: Vital Signs: Last Vital Signs Temp 98.2 F 04/12/21 22:59 Pulse 80 04/12/21 23:25 Resp 44 H 04/12/21 22:59 BP 109/50 L 04/12/21 22:59 Pulse Ox 85 L 04/12/21 23:42 Body Mass Index 17.6 Vital signs have been reviewed as appeared to be correct. Blood pressure normal. Heart rate normal. Respiration rate normal. Temperature normal. Oxygen saturation normal. Appearance: Alert. Oriented X3. No acute distress. Head: Normal external exam. Normocephalic. Atraumatic. No Menezes signs noted. No raccoon eyes noted Eyes: PERRLA. EOMI. Conjunctiva and sclera normal. Eyelids normal. ENT: TM's Normal. Pharynx normal. Uvula midline. Moist mucous membranes. No trismus noted. No drooling noted. No muffled voice noted. Neck: Normal inspection. Neck supple. FROM. No adenopathy. Thyroid Normal. No meningeal signs. No neck mass noted. CVS: Normal heart rate and rhythm. Heart sound normal. No murmurs noted. Pulses normal throughout. Respiratory: No respiratory distress. Painless inspiration. Breath sounds normal. No wheezes/rales/rhonchi noted. Chest nontender. No accessory muscle usage noted or decreased air movement noted. Abdomen: Soft and nontender. Bowel sounds normal in all 4 quadrants. No distention noted. No organomegaly noted. No visible injury noted. Back: No CVA tenderness. Full range of motion noted. Skin: Skin warm and dry. Normal skin color. Normal skin turgor. No rashes/lesions/lacerations noted. Extremities: No lower extremity edema. Extremities exhibit normal range of motion. Extremities nontender. Neuro: Oriented X 3. Cranial nerve exam: II-XII are grossly intact No motor deficit. No sensory deficit. Reflexes normal. Course Course Course Narrative: Assessment and plan. 81-year-old female with history of COPD came in for difficulty breathing, patient was found to have low O2 sat, patient received IV fluids/Solu-Medrol/magnesium/bronchodilator/and empirical zithromax. Medical Decision Making Lab Data Lab results reviewed: Yes I reviewed the patient's lab results. Result diagrams: 04/12/21 23:27 04/12/21 23:27 Labs: Lab Results 04/12/21 04/12/21 04/12/21 Range/Units 23:27 23:27 23:27 WBC 11.4 H (4.8-10.8) X10*3/uL RBC 3.83 L D (4.20-5.50) X10*6/uL Hgb 11.5 L (12.0-16.0) g/dl Hct 35.9 L (37-47) % MCV 93.7 (80-98) fL MCH 30.0 (27.0-33.0) pg MCHC 32.0 (31.0-35.0) g/dl RDW 15.4 (11.0-16.0) % Plt Count 558 H D (160-400) X10*3/uL MPV 9.7 (9.4-12.3) fL Immature Gran % (Auto) 0.4 (0.0-0.4) % Neut % (Auto) 74.0 H (45-73) % Lymph % (Auto) 14.1 L (20-40) % Hubbard % (Auto) 8.9 (2-11) % Eos % (Auto) 1.9 (0-4) % Baso % (Auto) 0.7 (0-2) % Lymph # (Auto) 1.6 (1.2-4.9) X10*3/uL Hubbard # (Auto) 1.0 (0.1-1.2) X10*3/uL Eos # (Auto) 0.2 (0.0-0.4) X10*3/uL Baso # (Auto) 0.1 (0.0-0.2) X10*3/uL Abs Immat Gran (auto) 0.04 H (0.00-0.03) X10*3/uL Absolute Neuts (auto) 8.4 H (2.0-8.3) X10*3/uL Absolute Nucleated RBC 0.000 (0.0-0.012) X10*3/uL Nucleated RBC % (auto) 0.0 (0.0-0.2) /100WBC Sodium 139 (135-145) mmol/L Potassium 4.2 (3.3-5.1) mmol/L Chloride 101 (96-108) mmol/L Carbon Dioxide 28 (22-29) mmol/L Anion Gap 14 (12-20) BUN 23 H (9-16) mg/dL Creatinine 1.04 (0.5-1.4) mg/dL Estim Creat Clear Calc 27.9 Estimated GFR 51 Random Glucose 100 (60-115) mg/dL Calcium 9.2 (8.4-10.2) mg/dL Total Bilirubin 0.2 (0.0-1.0) mg/dL Direct Bilirubin < 0.2 (0.0-0.5) mg/dL AST 17 (5-31) U/L ALT 16 (0-31) U/L Alkaline Phosphatase 117 D (39-117) U/L Troponin I High Sens (<3.5-17.0) ng/L B-Natriuretic Peptide (<100) pg/mL Total Protein 6.9 (6.5-8.0) g/dL Albumin 3.4 L (3.5-5.0) g/dL Lipase 43 (8-78) U/L Coronavirus (PCR) NEGATIVE (Negative) Influenza Type A (PCR) NEGATIVE (Negative) Influenza Type B (PCR) NEGATIVE (Negative) RSV RNA Qual (PCR) NEGATIVE (Negative) 04/12/21 Range/Units 23:27 WBC (4.8-10.8) X10*3/uL RBC (4.20-5.50) X10*6/uL Hgb (12.0-16.0) g/dl Hct (37-47) % MCV (80-98) fL MCH (27.0-33.0) pg MCHC (31.0-35.0) g/dl RDW (11.0-16.0) % Plt Count (160-400) X10*3/uL MPV (9.4-12.3) fL Immature Gran % (Auto) (0.0-0.4) % Neut % (Auto) (45-73) % Lymph % (Auto) (20-40) % Hubbard % (Auto) (2-11) % Eos % (Auto) (0-4) % Baso % (Auto) (0-2) % Lymph # (Auto) (1.2-4.9) X10*3/uL Hubbard # (Auto) (0.1-1.2) X10*3/uL Eos # (Auto) (0.0-0.4) X10*3/uL Baso # (Auto) (0.0-0.2) X10*3/uL Abs Immat Gran (auto) (0.00-0.03) X10*3/uL Absolute Neuts (auto) (2.0-8.3) X10*3/uL Absolute Nucleated RBC (0.0-0.012) X10*3/uL Nucleated RBC % (auto) (0.0-0.2) /100WBC Sodium (135-145) mmol/L Potassium (3.3-5.1) mmol/L Chloride (96-108) mmol/L Carbon Dioxide (22-29) mmol/L Anion Gap (12-20) BUN (9-16) mg/dL Creatinine (0.5-1.4) mg/dL Estim Creat Clear Calc Estimated GFR Random Glucose (60-115) mg/dL Calcium (8.4-10.2) mg/dL Total Bilirubin (0.0-1.0) mg/dL Direct Bilirubin (0.0-0.5) mg/dL AST (5-31) U/L ALT (0-31) U/L Alkaline Phosphatase (39-117) U/L Troponin I High Sens 28.1 H* (<3.5-17.0) ng/L B-Natriuretic Peptide 220 H (<100) pg/mL Total Protein (6.5-8.0) g/dL Albumin (3.5-5.0) g/dL Lipase (8-78) U/L Coronavirus (PCR) (Negative) Influenza Type A (PCR) (Negative) Influenza Type B (PCR) (Negative) RSV RNA Qual (PCR) (Negative) Imaging Data Chest x-ray: Radiologist's impression: No acute pulmonary disease, chronic interstitial markings ECG Data Interpretation: Normal sinus rhythm with sinus arrhythmia at rate of 96 beats per minutes, normal intervals, no ST-T changes. Discharge Plan Discharge Clinical Impression: Acute exacerbation of chronic obstructive airways disease Patient Disposition: Admitted As Inpatient Prescriptions: No Action Atrovent HFA 17 mcg/actuation HFA aerosol inhaler 2 puff inhalation TID RF: 0 aspirin 81 mg Tablet,Delayed Release (Dr/Ec) 81 mg PO DAILY RF: 0 Hold Instructions: Resume on 08/06/20. simvastatin 20 mg tablet 20 mg PO DAILY RF: 0 docusate sodium 100 mg capsule 1 cap PO DAILY PRN (Reason: constipation) RF: 0 albuterol sulfate 90 mcg/actuation HFA aerosol inhaler 2 puff PO Q6H PRN (Reason: wheezing) RF: 0 fluticasone propionate 50 mcg/actuation spray,suspension 1 - 2 spray intranasal DAILY RF: 0 duloxetine 60 mg capsule,delayed release(DR/EC) 60 mg PO DAILY RF: 0 omeprazole 20 mg Capsule,Delayed Release(Dr/Ec) 20 mg PO BID@0630,1630 Qty: 60 RF: 0 prednisone 20 mg tablet 20 mg PO DAILY Qty: 2 RF: 0 ferrous sulfate [Iron (ferrous sulfate)] 325 mg (65 mg iron) tablet 325 mg PO BID Qty: 60 RF: 0 doxycycline monohydrate 100 mg capsule 100 mg PO BID Qty: 10 RF: 0 tamsulosin [Flomax] 0.4 mg capsule 0.4 mg PO DAILY Qty: 10 RF: 0
[2021-04-12] MEDS: Albuterol/Iprat 2.5/0.5MG 3 ML AMPUL.NEB INHALE (23:21)
[2021-04-12 23:25] VITALS: PULSE 80
[2021-04-12 23:33] LABS: MANUAL DIFF FLAG NO
[2021-04-12 23:34] LABS: Basophils Absolute Auto 0.1 X10*3/uL (0.0-0.2); Basophils Percent Auto 0.7 % (0-2); Eosinophils Absolute Auto 0.2 X10*3/uL (0.0-0.4); Eosinophils Percent Auto 1.9 % (0-4); Hematocrit 35.9 % (37-47); Hemoglobin 11.5 g/dl (12.0-16.0); Imm Gran Abs Auto 0.04 X10*3/uL (0.00-0.03); Imm Gran Pct Auto 0.4 % (0.0-0.4); Lymphocytes Absolute Auto 1.6 X10*3/uL (1.2-4.9); Lymphocytes Percent Auto 14.1 % (20-40); Mean Corpuscular Volume 93.7 fL (80-98); Mean Platelet Volume 9.7 fL (9.4-12.3); Monocytes Percent Auto 8.9 % (2-11); Neutrophils Absolute Auto 8.4 X10*3/uL (2.0-8.3); Platelet Count 558 X10*3/uL (160-400); Red Blood Count 3.83 X10*6/uL (4.20-5.50); Red Cell Distribution Width 15.4 % (11.0-16.0); White Blood Count 11.4 X10*3/uL (4.8-10.8)
[2021-04-12] MEDS: 0.9 % Sodium Chloride 1,000 ML 500 ML IVCONT (23:38)
[2021-04-12 23:42] VITALS: O2SAT 85
[2021-04-12 23:50] LABS: Alanine Aminotransferase 16 U/L (0-31); Albumin Level 3.4 g/dL (3.5-5.0); Alkaline Phosphatase 117 U/L (39-117); Anion Gap 14 (12-20); Aspartate Amino Transferase 17 U/L (5-31); Bilirubin Direct < 0.2 mg/dL (0.0-0.5); Bilirubin Total 0.2 mg/dL (0.0-1.0); Blood Urea Nitrogen 23 mg/dL (9-16); Calcium 9.2 mg/dL (8.4-10.2); Carbon Dioxide 28 mmol/L (22-29); Chloride 101 mmol/L (96-108); Creatinine Clr Calc Pharmacy 27.9; Estimated Glomerular Filt Rate 51; Glucose Random 100 mg/dL (60-115); Lipase 43 U/L (8-78); Potassium 4.2 mmol/L (3.3-5.1); Sodium 139 mmol/L (135-145); Total Protein 6.9 g/dL (6.5-8.0)
[2021-04-12 23:59] LABS: B Type Natriuretic Peptide 220 pg/mL (<100); Troponin-I High Sensitivity 28.1 ng/L (<3.5-17.0)
[2021-04-13 00:11] LABS: Influenza A PCR NEGATIVE (Negative); Influenza B PCR NEGATIVE (Negative); Resp Syncy Virus RNA Qual PCR NEGATIVE (Negative); SARS COV2 PCR INHOUSE NEGATIVE (Negative)
[2021-04-13] MEDS: Magnesium Sulfate/H2O 2 GM/50 ML PIGGYBACK IV (01:01)
--- NOTE | 2021-04-13 01:01 | P.HPHOSP_ITS ---
History of Present Illness Date of Service: 04/13/21 Chief Complaint: Shortness of breath 81-year-old male with a past medical history of COPD 3 L of home oxygen tobacco dependence, GERD, anemia presented to the hospital with a chief complaint of shortness of breath; patient mentions that over the past couple days he has been having increased shortness of breath associated mild wheezing. Denies any chest pain palpitations lightheadedness or dizziness. Mentioned that his home oxygen was also not properly working. As his shortness of breath is getting worse he called EMS and presented to the ER for further evaluation. Denies any fever chills cough. Denies any nausea vomiting diarrhea. Denies any urinary symptoms. Review of all other systems is negative except mentioned above ER course: Per ER team patient noted to be wheezing; mildly hypoxic; placed on supplemental oxygen; not in respiratory distress. Given Solu-Medrol, nebulizations, azithromycin. Admitted to the hospital for further management. REPLACED BY [facility] Medical History COPD (chronic obstructive pulmonary disease) COPD (chronic obstructive pulmonary disease) Depression GERD (gastroesophageal reflux disease) IBS (irritable bowel syndrome) Respiratory failure with hypoxia Social History Household Members: None Housing: House Do you presently have visiting nurse or other home services: No Alcohol intake: never Second Hand Smoke Exposure: No Advance Directives: No Advance Directives Information Provided: No service: No Current occupational status: retired Meds Allergies Allergy/AdvReac Type Severity Reaction Status Date / Time Sulfa (Sulfonamide Allergy Unknown HIVES Verified 04/12/21 22:58 Antibiotics) erythromycin base AdvReac Mild GI UPSET Verified 04/12/21 22:58 [ERYTHROMYCIN BASE] Active Medications: Current Medications Generic Name Dose Route Start Last Admin Trade Name Freq PRN Reason Stop Dose Admin Acetaminophen 650 mg 04/13/21 00:55 Acetaminophen 325 Mg Tablet PO Q6H PRN Pain, Mild (Pain Scale 1-3) Enoxaparin Sodium 40 mg 04/13/21 01:00 Enoxaparin Sodium 40 Mg/0.4 Ml Syringe SUBCUT Q24H CHUY Sodium Chloride 1,000 mls @ 500 mls/hr 04/12/21 23:15 04/12/21 23:38 Ns IVCONT 04/13/21 01:14 500 mls/hr .Q2H CHUY Administration Magnesium Sulfate 2 gm in 50 mls @ 25 mls/hr 04/13/21 00:25 Magnesium Sulfate/H2o IV 04/13/21 02:24 ONCE ONE Azithromycin 500 mg/ Sodium 250 mls @ 125 mls/hr 04/13/21 00:27 Chloride IV 04/13/21 02:26 ONCE ONE Magnesium Hydroxide 30 ml 04/13/21 00:55 Milk Of Magnesia 30 Ml Oral.Susp PO DAILY PRN Constipation Melatonin 6 mg 04/13/21 00:55 Melatonin 3 Mg Tablet PO BEDTIME PRN Insomnia Oxycodone HCl 5 mg 04/13/21 00:55 Oxycodone Hcl Immed Release 5 Mg Tablet PO Q6H PRN Pain, Severe (Pain Scale 7-10) Sodium Chloride 3 ml 04/13/21 08:00 0.9 % Sodium Chloride Flush 3 Ml Syringe IVFLUSH QSHIFT COUNTS INCLUDE 234 BEDS AT THE [facility] Home Medications Medication Instructions Recorded Confirmed Last Taken Type albuterol sulfate 90 mcg/actuation 2 puff PO Q6H PRN 05/15/20 07/31/20 Unknown History aerosol inhaler aspirin 81 mg tablet,delayed 81 mg PO DAILY 05/15/20 07/31/20 07/31/20 History release docusate sodium 100 mg capsule 1 cap PO DAILY PRN 05/15/20 07/31/20 Unknown History duloxetine 60 mg capsule,delayed 60 mg PO DAILY 05/15/20 07/31/20 07/31/20 History release fluticasone propionate 50 1 - 2 spray INTRANASAL DAILY 05/15/20 07/31/20 07/31/20 History mcg/actuation nasal spray,suspension ipratropium bromide 17 2 puff INHALATION TID 05/15/20 07/31/20 07/31/20 History mcg/actuation HFA aerosol inhaler (Atrovent HFA) simvastatin 20 mg tablet 20 mg PO DAILY 05/15/20 07/31/20 07/30/20 History Physical Exam Vital Signs and Narrative: Vital Signs: Last Vital Signs Temp 98.2 F 04/12/21 22:59 Pulse 80 04/12/21 23:25 Resp 44 H 04/12/21 22:59 BP 109/50 L 04/12/21 22:59 Pulse Ox 85 L 04/12/21 23:42 Body Mass Index 17.6 Gen: Appears be in no acute distress; speaks in full sentences HEENT: NCAT, Moist mucosa. Pulmonary: Bilateral wheezing noted CVS: Normal S1-S2 Abdomen: BS+, Soft, Nontender Extremities: Warm well perfused Neuro: Alert and awake. Results Labs CBC and Chem 7: 04/12/21 23:27 04/12/21 23:27 Labs: Laboratory Results - last 24 hr 04/12/21 04/12/21 04/12/21 23:27 23:27 23:27 MCV 93.7 MCH 30.0 MCHC 32.0 RDW 15.4 Plt Count 558 H D MPV 9.7 Immature Gran % (Auto) 0.4 Neut % (Auto) 74.0 H Lymph % (Auto) 14.1 L [place] % (Auto) 8.9 Eos % (Auto) 1.9 Baso % (Auto) 0.7 Lymph # (Auto) 1.6 [place] # (Auto) 1.0 Eos # (Auto) 0.2 Baso # (Auto) 0.1 Abs Immat Gran (auto) 0.04 H Absolute Neuts (auto) 8.4 H Absolute Nucleated RBC 0.000 Nucleated RBC % (auto) 0.0 Anion Gap 14 Estim Creat Clear Calc 27.9 Estimated GFR 51 Random Glucose 100 Calcium 9.2 Total Bilirubin 0.2 Direct Bilirubin < 0.2 AST 17 ALT 16 Alkaline Phosphatase 117 D Troponin I High Sens B-Natriuretic Peptide Total Protein 6.9 Albumin 3.4 L Lipase 43 Coronavirus (PCR) NEGATIVE Influenza Type A (PCR) NEGATIVE Influenza Type B (PCR) NEGATIVE RSV RNA Qual (PCR) NEGATIVE 04/12/21 23:27 MCV MCH MCHC RDW Plt Count MPV Immature Gran % (Auto) Neut % (Auto) Lymph % (Auto) [place] % (Auto) Eos % (Auto) Baso % (Auto) Lymph # (Auto) [place] # (Auto) Eos # (Auto) Baso # (Auto) Abs Immat Gran (auto) Absolute Neuts (auto) Absolute Nucleated RBC Nucleated RBC % (auto) Anion Gap Estim Creat Clear Calc Estimated GFR Random Glucose Calcium Total Bilirubin Direct Bilirubin AST ALT Alkaline Phosphatase Troponin I High Sens 28.1 H* B-Natriuretic Peptide 220 H Total Protein Albumin Lipase Coronavirus (PCR) Influenza Type A (PCR) Influenza Type B (PCR) RSV RNA Qual (PCR) Imaging Radiologist's Impressions: Impressions Chest X-Ray 04/12/21 23:02 IMPRESSION: No acute pulmonary disease. Chronic coarse interstitial markings. Assessment and Plan (1) Acute exacerbation of chronic obstructive airways disease: Status: Acute 81-year-old male with a past medical history of hyperlipidemia, BPH, COPD, on home oxygen, anemia, GERD, depression presented to the hospital with a chief complaint of shortness of breath; noted to be in COPD exacerbation. Admitted to the hospital for further management. COPD exacerbation: Continue the patient on Solu-Medrol, DuoNeb standing and p.r.n., azithromycin. Continue home supplemental oxygen with good saturation 93% Pulmonary consult For all other chronic conditions, home medications will be continued DVT prophylaxis: Lovenox Code status: Full code Quality Stroke Does the patient have a stroke diagnosis?: No VTE Prior VTE?: No VTE Risk Level:: Medical - moderate - high VTE Device Contraindication: Treatment Not Indicated VTE Drug Contraindication: N/A - Med Ordered
[2021-04-13] MEDS: methylPREDNISolone Sod Succ 125 MG/2 ML VIAL IVPUSH (01:02)
[2021-04-13] MEDS: Azithromycin 500 MG in 0.9 % Sodium Chloride 250 ML 125 MG IV (01:39)
[2021-04-13 01:52] VITALS: BP 134/54; PULSE 86; RESP 20; O2SAT 100
[2021-04-13] MEDS: Enoxaparin Sodium 30 MG/0.3 ML SYRINGE SUBCUT (02:55)
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
[2021-04-13 03:45] VITALS: BP 132/47; PULSE 85; RESP 23; O2SAT 93
[2021-04-13 06:54] LABS: Basophils Percent Auto 0.2 % (0-2); Hematocrit 36.4 % (37-47); Hemoglobin 11.3 g/dl (12.0-16.0); Imm Gran Abs Auto 0.02 X10*3/uL (0.00-0.03); Imm Gran Pct Auto 0.2 % (0.0-0.4); Lymphocytes Absolute Auto 0.4 X10*3/uL (1.2-4.9); Lymphocytes Percent Auto 5.2 % (20-40); MANUAL DIFF FLAG NO; Mean Corpuscular Hemoglobin 29.5 pg (27.0-33.0); Mean Platelet Volume 9.7 fL (9.4-12.3); Monocytes Absolute Auto 0.1 X10*3/uL (0.1-1.2); Monocytes Percent Auto 0.6 % (2-11); Neutrophils Absolute Auto 7.6 X10*3/uL (2.0-8.3); Neutrophils Percent Auto 93.8 % (45-73); Platelet Count 544 X10*3/uL (160-400); Red Blood Count 3.83 X10*6/uL (4.20-5.50); Red Cell Distribution Width 15.6 % (11.0-16.0); SCAN SMEAR FLAG 1; White Blood Count 8.2 X10*3/uL (4.8-10.8)
[2021-04-13 07:13] LABS: Anion Gap 13 (12-20); Blood Urea Nitrogen 20 mg/dL (9-16); Calcium 8.9 mg/dL (8.4-10.2); Carbon Dioxide 26 mmol/L (22-29); Chloride 106 mmol/L (96-108); Creatinine Clr Calc Pharmacy 30.2; Estimated Glomerular Filt Rate 56; Glucose Random 126 mg/dL (60-115); Potassium 4.3 mmol/L (3.3-5.1); Sodium 141 mmol/L (135-145)
[2021-04-13] MEDS: Tamsulosin HCL 0.4 MG CAPSULE PO (09:16)
[2021-04-13] MEDS: DULoxetine HCl 60 MG CAPSULE.DR PO (09:16)
[2021-04-13] MEDS: Aspirin Enteric Coated 81 MG TABLET.DR PO (09:16)
[2021-04-13] MEDS: methylPREDNISolone Sod Succ 40 MG/ML VIAL IVPUSH ×2 (09:16→19:52)
[2021-04-13] MEDS: Atorvastatin Calcium 10 MG TABLET PO (09:16)
[2021-04-13] MEDS: 0.9 % Sodium Chloride Flush 3 ML SYRINGE IVFLUSH ×3 (09:17→19:52)
[2021-04-13 09:19] VITALS: BP 127/45; PULSE 94; RESP 22; O2SAT 97
--- NOTE | 2021-04-13 09:20 | PC.NURSE ---
Pt alert and oriented. Denies pain at this time. NS on monitor with occasional PVCs noted. On baseline 4lpm via nc, st 97% when entered room. Pt noted at times to remove 02 and encouraged to keep it on when needed. Medicated as charted with AM meds. LS diminished. Skin color sl pale, warm and dry.
--- NOTE | 2021-04-13 09:25 | PC.NURSE ---
Dr Lala at bedside for eval
[2021-04-13 12:50] VITALS: BP 125/56; PULSE 81; RESP 25; TEMP 36.6; O2SAT 94
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
[2021-04-13] MEDS: Nicotine 21 MG PATCH.TD24 TRANSDERMA (13:30)
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
[2021-04-13 15:25] VITALS: BP 140/66; PULSE 88; RESP 18; TEMP 37; O2SAT 97
[2021-04-13 15:42] LABS: Glucose Urine UA NEG (NEG); Leukocyte Esterase Urine 1+ (NEG); Nitrite Urine NEG (NEG); Specific Gravity - Urine 1.025 (1.005-1.025); UACC Culture Trigger YES; Urine Blood NEG (NEG); Urine Ketones NEG (NEG); Urine Protein 1+ MG/DL (NEG-TRACE)
[2021-04-13 15:52] LABS: Appearance Urine HAZY; Color Urine YELLOW
[2021-04-13 16:46] LABS: Bacteria Urine 4+ /LPF; RBC Urine 0-2 /HPF (0); Squamous Epithelial Cell Urine 2+ /LPF; WBC Urine 30-49 /HPF (0-4)
[2021-04-13 19:26] VITALS: BP 153/70; PULSE 88; RESP 18; TEMP 37.1; O2SAT 97
[2021-04-13] MEDS: oxyCODONE HCl Immed Release 5 MG TABLET PO (19:51)
[2021-04-14] VITALS (7 sets, daily range): BP systolic 121–157; BP diastolic 56–90; PULSE 68–87; RESP 18–20; TEMP 36–36.8; O2SAT 96–98; BMI 17.6
[2021-04-14] MEDS: Azithromycin 500 MG TABLET PO (01:01)
[2021-04-14] MEDS: Enoxaparin Sodium 30 MG/0.3 ML SYRINGE SUBCUT (01:01)
[2021-04-14] MEDS: 0.9 % Sodium Chloride Flush 3 ML SYRINGE IVFLUSH ×3 (01:06→21:00)
[2021-04-14] MEDS: oxyCODONE HCl Immed Release 5 MG TABLET PO (02:26)
[2021-04-14 03:10] LABS: Troponin-I High Sensitivity 18.3 ng/L (<3.5-17.0)
[2021-04-14] MEDS: ondansetron HCL 4 MG/2 ML VIAL IVPUSH (05:13)
[2021-04-14] MEDS: Omeprazole 20 MG CAPSULE.DR PO (05:14)
[2021-04-14] MEDS: HYDROmorphone HCl 2 MG TABLET 1 MG PO (06:24)
[2021-04-14 06:49] LABS: Hematocrit 30.6 % (37-47); Hemoglobin 9.5 g/dl (12.0-16.0); Mean Corpuscular Hemoglobin 29.1 pg (27.0-33.0); Mean Corpuscular Volume 93.9 fL (80-98); Mean Platelet Volume 10.3 fL (9.4-12.3); Platelet Count 502 X10*3/uL (160-400); Red Blood Count 3.26 X10*6/uL (4.20-5.50); Red Cell Distribution Width 15.2 % (11.0-16.0); White Blood Count 8.4 X10*3/uL (4.8-10.8)
[2021-04-14 07:39] LABS: Anion Gap 10 (12-20); Calcium 8.5 mg/dL (8.4-10.2); Carbon Dioxide 27 mmol/L (22-29); Chloride 102 mmol/L (96-108); Potassium 4.5 mmol/L (3.3-5.1); Sodium 134 mmol/L (135-145)
[2021-04-14 08:21] LABS: Blood Urea Nitrogen 25 mg/dL (9-16); Creatinine Clr Calc Pharmacy 36.3; Estimated Glomerular Filt Rate > 60; Glucose Fasting 109 mg/dL (60-99)
[2021-04-14] MEDS: Aspirin Enteric Coated 81 MG TABLET.DR PO (08:57)
[2021-04-14] MEDS: Tamsulosin HCL 0.4 MG CAPSULE PO (08:57)
[2021-04-14] MEDS: methylPREDNISolone Sod Succ 40 MG/ML VIAL IVPUSH ×2 (08:57→21:00)
[2021-04-14] MEDS: Nicotine 21 MG PATCH.TD24 TRANSDERMA (08:57)
[2021-04-14] MEDS: DULoxetine HCl 60 MG CAPSULE.DR PO (08:57)
[2021-04-14] MEDS: Atorvastatin Calcium 10 MG TABLET PO (08:57)
--- NOTE | 2021-04-14 09:42 | P.CDIC_ITS ---
CDI Concurrent Query Service Date: 04/14/21 Documentation Clarification: Please clarify if you are treating a proba ble/suspected/likely or confirmed: Chronic respiratory failure with hypoxia Acute on chronic hypoxic respiratory failure Please specify if known or undetermined Provider Response: Other Other Diagnosis: acute on chronic hypoxic respriatory failure PLEASE DO NOT DELETE/MODIFY EXISTING CONTENT Additional information is needed in order to code to the highest accuracy and appropriate Severity of Illness (SOI). Please clarify the information noted below in your progress notes and discharge summary. Risk Factors/Clinical Indicators/Treatments COPD exacerbation on 3 liters home oxygen 04/03. Oxygen at home not working right called EMS mildly hypoxic. Patient was placed on oxygen w RR 44 pulse ox 85% oxygen increased to 4 liters w RR 23. SOB, wheezing, active smoker. History of acute hypoxic respiratory failure. CDS: Audrey Elias CCS, CDIS Contact Number: [phone]. [phone] Please Review the information above and exercise your independent professional judgment in responding to the query. If you concur, pleas document in the PROGRESS NOTES and DISCHARGE SUMMARY. If you do not agree with the query, please document in the query above. THIS QUERY IS PART OF THE PERMANENT MEDICAL RECORD
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
--- NOTE | 2021-04-14 10:25 | HO.PM.IMPN ---
Subjective Subjective Date of Service: 04/14/21 Interval History: a bit better, but still sob Cardiovascular Cardiovascular: Reports no additional cardiovascular complaints Respiratory Respiratory: Reports no additional respiratory complaints Physical Exam Vital Signs: Vital Signs: Last Vital Signs Temp 97.7 F 04/14/21 08:00 Pulse 68 04/14/21 08:00 Resp 20 04/14/21 08:00 BP 121/56 L 04/14/21 08:00 Pulse Ox 98 04/14/21 08:00 Body Mass Index 17.6 General: AO X 3, frail appearing Resp: dminished, accessory muscles CVS: S1,S2,RRR GI: soft, non tender, non distended Neuro: motor grossly intact Psych: appropriate affect Objective Data Active Medications Acetaminophen (Acetaminophen 325 Mg Tablet) 650 mg PO Q6H PRN PRN Reason: Pain, Mild (Pain Scale 1-3) Albuterol/Ipratropium (Albuterol/Iprat 2.5/0.5mg 3 Ml Ampul.Neb) 3 ml INHALE RQ4H PRN PRN Reason: Shortness of Breath/Wheezing Aspirin (Aspirin Enteric Coated 81 Mg Tablet.) 81 mg PO DAILY [facility] Last Admin: 04/14/21 08:57 Dose: 81 mg Documented by: RENATO Atorvastatin Calcium (Atorvastatin Calcium 10 Mg Tablet) 10 mg PO DAILY [facility] Last Admin: 04/14/21 08:57 Dose: 10 mg Documented by: RENATO Azithromycin (Azithromycin 500 Mg Tablet) 500 mg PO Q24H [facility] Last Admin: 04/14/21 01:01 Dose: 500 mg Documented by: CELESTINO Duloxetine HCl (Duloxetine Hcl 60 Mg Capsule.) 60 mg PO DAILY [facility] Last Admin: 04/14/21 08:57 Dose: 60 mg Documented by: RENATO Enoxaparin Sodium (Enoxaparin Sodium 30 Mg/0.3 Ml Syringe) 30 mg SUBCUT Q24H [facility] Last Admin: 04/14/21 01:01 Dose: 30 mg Documented by: CELESTINO Magnesium Hydroxide (Milk Of Magnesia 30 Ml Oral.Susp) 30 ml PO DAILY PRN PRN Reason: Constipation Melatonin (Melatonin 3 Mg Tablet) 6 mg PO BEDTIME PRN PRN Reason: Insomnia Methylprednisolone Sodium Succinate (Methylprednisolone Sod Succ 40 Mg/Ml Vial) 40 mg IVPUSH Q12H [facility] Last Admin: 04/14/21 08:57 Dose: 40 mg Documented by: RENATO Nicotine (Nicotine 21 Mg Patch.Td24) 21 mg TRANSDERMA DAILY [facility] Last Admin: 04/14/21 08:57 Dose: 21 mg Documented by: RENATO Omeprazole (Omeprazole 20 Mg Capsule.Dr) 20 mg PO DAILY@0630 [facility] Last Admin: 04/14/21 05:14 Dose: 20 mg Documented by: CELESTINO Oxycodone HCl (Oxycodone Hcl Immed Release 5 Mg Tablet) 5 mg PO Q6H PRN PRN Reason: Pain, Severe (Pain Scale 7-10) Last Admin: 04/14/21 02:26 Dose: 5 mg Documented by: CELESTINO Sodium Chloride (0.9 % Sodium Chloride Flush 3 Ml Syringe) 3 ml IVFLUSH QSHIFT [facility] Last Admin: 04/14/21 01:06 Dose: 3 ml Documented by: CELESTINO Tamsulosin HCl (Tamsulosin Hcl 0.4 Mg Capsule) 0.4 mg PO DAILY [facility] Last Admin: 04/14/21 08:57 Dose: 0.4 mg Documented by: RENATO Labs CBC & Chem 7: 04/14/21 05:55 04/14/21 05:55 Labs: Laboratory Results - last 24 hr 04/13/21 04/14/21 04/14/21 12:50 02:42 05:55 MCV 93.9 MCH 29.1 MCHC 31.0 RDW 15.2 Plt Count 502 H MPV 10.3 Absolute Nucleated RBC 0.000 Nucleated RBC % (auto) 0.0 Anion Gap Estim Creat Clear Calc Estimated GFR Fasting Glucose Calcium Troponin I High Sens 18.3 H* Urine Color YELLOW Urine Appearance HAZY Urine pH 6.0 Ur Specific [place] 1.025 Urine Protein 1+ H Urine Glucose (UA) NEG Urine Ketones NEG Urine Blood NEG Urine Nitrite NEG Ur Leukocyte Esterase 1+ H Urine RBC 0-2 Urine WBC 30-49 H Ur Squamous Epith Cells 2+ Urine Bacteria 4+ 04/14/21 05:55 MCV MCH MCHC RDW Plt Count MPV Absolute Nucleated RBC Nucleated RBC % (auto) Anion Gap 10 L Estim Creat Clear Calc 36.3 Estimated GFR > 60 Fasting Glucose 109 H Calcium 8.5 Troponin I High Sens Urine Color Urine Appearance Urine pH Ur Specific [place] Urine Protein Urine Glucose (UA) Urine Ketones Urine Blood Urine Nitrite Ur Leukocyte Esterase Urine RBC Urine WBC Ur Squamous Epith Cells Urine Bacteria Microbiology Microbiology Results: Microbiology 04/13/21 01:12 Blood Culture - Preliminary Blood - Venous No growth after 24 hours. 04/13/21 01:12 Blood Culture - Preliminary Blood - Venous No growth after 24 hours. Assessment and Plan (1) Respiratory failure with hypoxia: Status: Acute Assessment and Plan: 81F presented with sob acute on chronic hypoxic respritory failure due to copd excarbation now back to chronic hypoxic state conitnue solumedrol, azithro, nebs still feeling too sob for discharge if continues to improve likely dc in 24-48hrs moderate protein calorie malnutrition encourage nutrition intake Quality Stroke Does the patient have a stroke diagnosis?: No VTE Prior VTE?: No VTE Risk Level:: Medical - moderate - high VTE Device Contraindication: Treatment Not Indicated VTE Drug Contraindication: N/A - Med Ordered
--- NOTE | 2021-04-14 14:34 | MHC.CM.PN ---
IMM 04/14/21 Female 81 DX COPD. She lives alone with assist from her daughter and a neighbor. She is O2 dependent, KARUNA is provider.She uses a walker. She is independent with bed baths. DP home with [facility]. Referrals have been sent, not placed. Her dtr will provide transportation. CM will follow.
--- NOTE | 2021-04-14 16:18 | PC.NURSE ---
COX REMOVED AT 1330. DTV AT 2330.
[2021-04-14] MEDS: Melatonin 3 MG TABLET 6 MG PO (23:33)
[2021-04-14] MEDS: Acetaminophen 325 MG TABLET 650 MG PO (23:33)
--- NOTE | 2021-04-14 23:44 | PC.NURSE ---
Per report from day shift, heck was removed at 1530, giving the patient until 2330 to void. Pt unable to do so, attempted twice on the commode. Pt stating it hurts and feels pressure. Bladder scanner showed [address] stated to wait another 2 hours to void but pt unable to wait due to the pressure. Order in to reinsert heck. Heck inserted 2330, patent and running.
[2021-04-15] MEDS: Enoxaparin Sodium 30 MG/0.3 ML SYRINGE SUBCUT (01:10)
[2021-04-15] MEDS: Azithromycin 500 MG TABLET PO (01:10)
[2021-04-15 03:26] VITALS: BP 160/82; PULSE 81; RESP 18; TEMP 36.8; O2SAT 95
[2021-04-15 07:39] VITALS: BP 150/70; PULSE 81; RESP 18; TEMP 37; O2SAT 97
[2021-04-15] MEDS: methylPREDNISolone Sod Succ 40 MG/ML VIAL IVPUSH ×2 (08:19→19:38)
[2021-04-15] MEDS: Omeprazole 20 MG CAPSULE.DR PO (08:22)
[2021-04-15] MEDS: Nicotine 21 MG PATCH.TD24 TRANSDERMA (08:24)
[2021-04-15] MEDS: DULoxetine HCl 60 MG CAPSULE.DR PO (08:26)
[2021-04-15] MEDS: Tamsulosin HCL 0.4 MG CAPSULE PO (08:26)
[2021-04-15] MEDS: Atorvastatin Calcium 10 MG TABLET PO (08:27)
[2021-04-15] MEDS: Aspirin Enteric Coated 81 MG TABLET.DR PO (08:27)
[2021-04-15] MEDS: 0.9 % Sodium Chloride Flush 3 ML SYRINGE IVFLUSH ×3 (08:31→19:40)
[2021-04-15 11:51] VITALS: BP 162/71; PULSE 90; RESP 18; TEMP 36.8; O2SAT 96
--- NOTE | 2021-04-15 12:05 | P.PNIM_ITS ---
Subjective Subjective Date of Service: 04/15/21 Interval History: still sob Cardiovascular Cardiovascular: Reports no additional cardiovascular complaints Gastrointestinal Gastrointestinal: Reports no additional gastrointestinal complaints Physical Exam Vital Signs: Vital Signs: Last Vital Signs Temp 98.3 F 04/15/21 11:51 Pulse 90 04/15/21 11:51 Resp 18 04/15/21 11:51 BP 162/71 H 04/15/21 11:51 Pulse Ox 96 04/15/21 11:51 Body Mass Index 17.6 General: AO X 3, frail appearing Resp:? dminished CVS: S1,S2,RRR GI: soft, non tender, non distended Neuro:? motor grossly intact Psych: appropriate affect Objective Data Active Medications Acetaminophen (Acetaminophen 325 Mg Tablet) 650 mg PO Q6H PRN PRN Reason: Pain, Mild (Pain Scale 1-3) Last Admin: 04/14/21 23:33 Dose: 650 mg Documented by: JELENA Albuterol/Ipratropium (Albuterol/Iprat 2.5/0.5mg 3 Ml Ampul.Neb) 3 ml INHALE RQ4H PRN PRN Reason: Shortness of Breath/Wheezing Aspirin (Aspirin Enteric Coated 81 Mg Tablet.) 81 mg PO DAILY [facility] Last Admin: 04/15/21 08:27 Dose: 81 mg Documented by: JACK Atorvastatin Calcium (Atorvastatin Calcium 10 Mg Tablet) 10 mg PO DAILY [facility] Last Admin: 04/15/21 08:27 Dose: 10 mg Documented by: JACK Azithromycin (Azithromycin 500 Mg Tablet) 500 mg PO Q24H [facility] Last Admin: 04/15/21 01:10 Dose: 500 mg Documented by: JELENA Duloxetine HCl (Duloxetine Hcl 60 Mg Capsule.) 60 mg PO DAILY [facility] Last Admin: 04/15/21 08:26 Dose: 60 mg Documented by: JACK Enoxaparin Sodium (Enoxaparin Sodium 30 Mg/0.3 Ml Syringe) 30 mg SUBCUT Q24H [facility] Last Admin: 04/15/21 01:10 Dose: 30 mg Documented by: JELENA Magnesium Hydroxide (Milk Of Magnesia 30 Ml Oral.Susp) 30 ml PO DAILY PRN PRN Reason: Constipation Melatonin (Melatonin 3 Mg Tablet) 6 mg PO BEDTIME PRN PRN Reason: Insomnia Last Admin: 04/14/21 23:33 Dose: 6 mg Documented by: JELENA Methylprednisolone Sodium Succinate (Methylprednisolone Sod Succ 40 Mg/Ml Vial) 40 mg IVPUSH Q12H [facility] Last Admin: 04/15/21 08:19 Dose: 40 mg Documented by: JACK Nicotine (Nicotine 21 Mg Patch.Td24) 21 mg TRANSDERMA DAILY [facility] Last Admin: 04/15/21 08:24 Dose: 21 mg Documented by: JACK Omeprazole (Omeprazole 20 Mg Capsule.Dr) 20 mg PO DAILY@0630 [facility] Last Admin: 04/15/21 08:22 Dose: 20 mg Documented by: JACK Oxycodone HCl (Oxycodone Hcl Immed Release 5 Mg Tablet) 5 mg PO Q6H PRN PRN Reason: Pain, Severe (Pain Scale 7-10) Last Admin: 04/14/21 02:26 Dose: 5 mg Documented by: CELESTINO Sodium Chloride (0.9 % Sodium Chloride Flush 3 Ml Syringe) 3 ml IVFLUSH QSHIFT [facility] Last Admin: 04/15/21 08:31 Dose: 3 ml Documented by: JACK Tamsulosin HCl (Tamsulosin Hcl 0.4 Mg Capsule) 0.4 mg PO DAILY [facility] Last Admin: 04/15/21 08:26 Dose: 0.4 mg Documented by: JACK Labs CBC & Chem 7: 04/14/21 05:55 04/14/21 05:55 Microbiology Microbiology Results: Microbiology 04/13/21 Unknown Urine Culture - Final Urine clean catch - Urine gaspar top Escherichia coli 04/13/21 01:12 Blood Culture - Preliminary Blood - Venous No growth after 48 hours. 04/13/21 01:12 Blood Culture - Preliminary Blood - Venous No growth after 48 hours. Assessment and Plan (1) Respiratory failure with hypoxia: Status: Acute Assessment and Plan: 81F presented with sob acute on chronic hypoxic respritory failure due to copd excarbation now back to chronic hypoxic state continue solumedrol, azithro, nebs still doesnt feel ready for discharge, hopefully will dc tomorrow moderate protein calorie malnutrition encourage nutrition intake Quality Stroke Does the patient have a stroke diagnosis?: No VTE Prior VTE?: No VTE Risk Level:: Medical - moderate - high VTE Device Contraindication: Treatment Not Indicated VTE Drug Contraindication: N/A - Med Ordered
[2021-04-15 15:09] VITALS: BP 150/70; PULSE 87; RESP 20; TEMP 36.7; O2SAT 99
[2021-04-15] MEDS: oxyCODONE HCl Immed Release 5 MG TABLET PO (18:15)
[2021-04-15 19:07] VITALS: BP 176/78; PULSE 90; RESP 20; TEMP 36.8; O2SAT 98
[2021-04-15] MEDS: Fluticasone Propionate Nasal 16 GM SPRAY 1 SPRAY NOSTRIL-B (19:38)
[2021-04-15] MEDS: Acetaminophen 325 MG TABLET 650 MG PO (19:38)
[2021-04-15 23:07] VITALS: BP 168/74; PULSE 85; RESP 20; TEMP 36.4; O2SAT 96
[2021-04-16] VITALS (7 sets, daily range): BP systolic 113–183; BP diastolic 56–78; PULSE 72–93; RESP 16–20; TEMP 36.6–37; O2SAT 94–100
[2021-04-16] MEDS: Azithromycin 500 MG TABLET PO (00:33)
[2021-04-16] MEDS: Enoxaparin Sodium 30 MG/0.3 ML SYRINGE SUBCUT (00:33)
[2021-04-16] MEDS: oxyCODONE HCl Immed Release 5 MG TABLET PO (04:18)
[2021-04-16] MEDS: Atorvastatin Calcium 10 MG TABLET PO (07:50)
[2021-04-16] MEDS: DULoxetine HCl 60 MG CAPSULE.DR PO (07:50)
[2021-04-16] MEDS: methylPREDNISolone Sod Succ 40 MG/ML VIAL IVPUSH (07:50)
[2021-04-16] MEDS: Nicotine 21 MG PATCH.TD24 TRANSDERMA (07:51)
[2021-04-16] MEDS: Tamsulosin HCL 0.4 MG CAPSULE PO (07:51)
[2021-04-16] MEDS: 0.9 % Sodium Chloride Flush 3 ML SYRINGE IVFLUSH ×3 (07:51→19:58)
[2021-04-16] MEDS: Aspirin Enteric Coated 81 MG TABLET.DR PO (07:51)
--- NOTE | 2021-04-16 11:31 | P.PNIM_ITS ---
Subjective Subjective Date of Service: 04/16/21 Interval History: feeling sob, scared to go home Respiratory Respiratory: Reports no additional respiratory complaints Gastrointestinal Gastrointestinal: Reports no additional gastrointestinal complaints Physical Exam Vital Signs: Vital Signs: Last Vital Signs Temp 98.5 F 04/16/21 11:20 Pulse 93 04/16/21 11:20 Resp 19 04/16/21 11:20 BP 113/56 L 04/16/21 11:20 Pulse Ox 94 04/16/21 11:20 Body Mass Index 17.6 General: AO X 3, frail appearing Resp:? dminished CVS: S1,S2,RRR GI: soft, non tender, non distended Neuro:? motor grossly intact Psych: appropriate affect Objective Data Active Medications Acetaminophen (Acetaminophen 325 Mg Tablet) 650 mg PO Q6H PRN PRN Reason: Pain, Mild (Pain Scale 1-3) Last Admin: 04/15/21 19:38 Dose: 650 mg Documented by: JELENA Albuterol/Ipratropium (Albuterol/Iprat 2.5/0.5mg 3 Ml Ampul.Neb) 3 ml INHALE RQ4H PRN PRN Reason: Shortness of Breath/Wheezing Aspirin (Aspirin Enteric Coated 81 Mg Tablet.) 81 mg PO DAILY [facility] Last Admin: 04/16/21 07:51 Dose: 81 mg Documented by: PRABHJOT Atorvastatin Calcium (Atorvastatin Calcium 10 Mg Tablet) 10 mg PO DAILY [facility] Last Admin: 04/16/21 07:50 Dose: 10 mg Documented by: PRABHJOT Azithromycin (Azithromycin 500 Mg Tablet) 500 mg PO Q24H [facility] Last Admin: 04/16/21 00:33 Dose: 500 mg Documented by: JELENA Duloxetine HCl (Duloxetine Hcl 60 Mg Capsule.) 60 mg PO DAILY [facility] Last Admin: 04/16/21 07:50 Dose: 60 mg Documented by: PRABHJOT Enoxaparin Sodium (Enoxaparin Sodium 30 Mg/0.3 Ml Syringe) 30 mg SUBCUT Q24H [facility] Last Admin: 04/16/21 00:33 Dose: 30 mg Documented by: JELENA Fluticasone Propionate (Fluticasone Propionate Nasal 16 Gm [place]) 1 spray NOSTRIL-B DAILY PRN PRN Reason: Congestion Last Admin: 04/15/21 19:38 Dose: 1 spray Documented by: JELENA Magnesium Hydroxide (Milk Of Magnesia 30 Ml Oral.Susp) 30 ml PO DAILY PRN PRN Reason: Constipation Melatonin (Melatonin 3 Mg Tablet) 6 mg PO BEDTIME PRN PRN Reason: Insomnia Last Admin: 04/14/21 23:33 Dose: 6 mg Documented by: JELENA Methylprednisolone Sodium Succinate (Methylprednisolone Sod Succ 40 Mg/Ml Vial) 40 mg IVPUSH Q12H [facility] Last Admin: 04/16/21 07:50 Dose: 40 mg Documented by: PRABHJOT Nicotine (Nicotine 21 Mg Patch.Td24) 21 mg TRANSDERMA DAILY [facility] Last Admin: 04/16/21 07:51 Dose: 21 mg Documented by: PRABHJOT Omeprazole (Omeprazole 20 Mg Capsule.Dr) 20 mg PO DAILY@0630 [facility] Last Admin: 04/15/21 08:22 Dose: 20 mg Documented by: JACK Oxycodone HCl (Oxycodone Hcl Immed Release 5 Mg Tablet) 5 mg PO Q6H PRN PRN Reason: Pain, Severe (Pain Scale 7-10) Last Admin: 04/16/21 04:18 Dose: 5 mg Documented by: JELENA Sodium Chloride (0.9 % Sodium Chloride Flush 3 Ml Syringe) 3 ml IVFLUSH QSHIFT [facility] Last Admin: 04/16/21 07:51 Dose: 3 ml Documented by: PRABHJOT Tamsulosin HCl (Tamsulosin Hcl 0.4 Mg Capsule) 0.4 mg PO DAILY [facility] Last Admin: 04/16/21 07:51 Dose: 0.4 mg Documented by: PRABHJOT Labs CBC & Chem 7: 04/14/21 05:55 04/14/21 05:55 Microbiology Microbiology Results: Microbiology 04/13/21 Unknown Urine Culture - Final Urine clean catch - Urine gaspar top Escherichia coli Assessment and Plan (1) Respiratory failure with hypoxia: Status: Acute Assessment and Plan: 81F presented with sob acute on chronic hypoxic respritory failure due to copd excarbation now back to chronic hypoxic state change to po prednisone continue kristy canales still doesnt feel ready for discharge, but unclear if she will continue to make progress inpatient, will see if patient would be good candidate for pulmonary rehab. moderate protein calorie malnutrition encourage nutrition intake Quality Stroke Does the patient have a stroke diagnosis?: No VTE Prior VTE?: No VTE Risk Level:: Medical - moderate - high VTE Device Contraindication: Treatment Not Indicated VTE Drug Contraindication: N/A - Med Ordered
[2021-04-16] MEDS: Fluticasone Propionate Nasal 16 GM SPRAY 1 SPRAY NOSTRIL-B (15:15)
[2021-04-16] MEDS: Acetaminophen 325 MG TABLET 650 MG PO (19:58)
[2021-04-16] MEDS: Albuterol/Iprat 2.5/0.5MG 3 ML AMPUL.NEB INHALE (20:16)
[2021-04-17] VITALS (8 sets, daily range): BP systolic 146–170; BP diastolic 62–74; PULSE 67–93; RESP 17–21; TEMP 36.5–37.4; O2SAT 91–100
[2021-04-17] MEDS: Azithromycin 500 MG TABLET PO (01:37)
[2021-04-17] MEDS: oxyCODONE HCl Immed Release 5 MG TABLET PO ×3 (01:38→19:24)
[2021-04-17] MEDS: Enoxaparin Sodium 30 MG/0.3 ML SYRINGE SUBCUT (01:38)
[2021-04-17] MEDS: Fluticasone Propionate Nasal 16 GM SPRAY 1 SPRAY NOSTRIL-B ×2 (01:46→13:05)
[2021-04-17] MEDS: Omeprazole 20 MG CAPSULE.DR PO (06:48)
[2021-04-17] MEDS: Nicotine 21 MG PATCH.TD24 TRANSDERMA (09:43)
[2021-04-17] MEDS: 0.9 % Sodium Chloride Flush 3 ML SYRINGE IVFLUSH ×2 (09:43→16:23)
[2021-04-17] MEDS: Aspirin Enteric Coated 81 MG TABLET.DR PO (09:44)
[2021-04-17] MEDS: DULoxetine HCl 60 MG CAPSULE.DR PO (09:44)
[2021-04-17] MEDS: Tamsulosin HCL 0.4 MG CAPSULE PO (09:44)
[2021-04-17] MEDS: predniSONE 20 MG TABLET 40 MG PO (09:44)
[2021-04-17] MEDS: Atorvastatin Calcium 10 MG TABLET PO (09:44)
[2021-04-17] MEDS: Albuterol/Iprat 2.5/0.5MG 3 ML AMPUL.NEB INHALE (11:31)
--- NOTE | 2021-04-17 12:08 | MHC.CM.PN ---
cm met with pt to discuss DC planning, pt reports she is hoping to go to rehab and would like a referral to [facility] in [place]. CM explained the difference between [facility] and [facility]. Per discussion, CM will send a referral to [facility] and if declined, pt will review list of [facility] SNFs.
--- NOTE | 2021-04-17 12:41 | P.PNIM_ITS ---
Subjective Subjective Date of Service: 04/17/21 Interval History: sob Cardiovascular Cardiovascular: Reports no additional cardiovascular complaints Gastrointestinal Gastrointestinal: Reports no additional gastrointestinal complaints Physical Exam Vital Signs: Vital Signs: Last Vital Signs Temp 98.0 F 04/17/21 11:47 Pulse 85 04/17/21 11:47 Resp 17 04/17/21 11:47 BP 167/67 H 04/17/21 11:47 Pulse Ox 91 L 04/17/21 11:47 Body Mass Index 17.6 General: AO X 3, frail appearing Resp:? dminished CVS: S1,S2,RRR GI: soft, non tender, non distended Neuro:? motor grossly intact Psych: appropriate affect Objective Data Active Medications Acetaminophen (Acetaminophen 325 Mg Tablet) 650 mg PO Q6H PRN PRN Reason: Pain, Mild (Pain Scale 1-3) Last Admin: 04/16/21 19:58 Dose: 650 mg Documented by: SAVANNAH Albuterol/Ipratropium (Albuterol/Iprat 2.5/0.5mg 3 Ml Ampul.Neb) 3 ml INHALE RQ4H PRN PRN Reason: Shortness of Breath/Wheezing Last Admin: 04/17/21 11:31 Dose: 3 ml Documented by: KRISTANRICSandy Aspirin (Aspirin Enteric Coated 81 Mg Tablet.) 81 mg PO DAILY [facility] Last Admin: 04/17/21 09:44 Dose: 81 mg Documented by: GREGOR Atorvastatin Calcium (Atorvastatin Calcium 10 Mg Tablet) 10 mg PO DAILY [facility] Last Admin: 04/17/21 09:44 Dose: 10 mg Documented by: GREGOR Azithromycin (Azithromycin 500 Mg Tablet) 500 mg PO Q24H [facility] Last Admin: 04/17/21 01:37 Dose: 500 mg Documented by: SAVANNAH Duloxetine HCl (Duloxetine Hcl 60 Mg Capsule.) 60 mg PO DAILY [facility] Last Admin: 04/17/21 09:44 Dose: 60 mg Documented by: GREGOR Enoxaparin Sodium (Enoxaparin Sodium 30 Mg/0.3 Ml Syringe) 30 mg SUBCUT Q24H [facility] Last Admin: 04/17/21 01:38 Dose: 30 mg Documented by: ASYALN Fluticasone Propionate (Fluticasone Propionate Nasal 16 Gm [place]) 1 spray NOSTRIL-B DAILY PRN PRN Reason: Congestion Last Admin: 04/17/21 01:46 Dose: 1 spray Documented by: SAVANNAH Magnesium Hydroxide (Milk Of Magnesia 30 Ml Oral.Susp) 30 ml PO DAILY PRN PRN Reason: Constipation Melatonin (Melatonin 3 Mg Tablet) 6 mg PO BEDTIME PRN PRN Reason: Insomnia Last Admin: 04/14/21 23:33 Dose: 6 mg Documented by: JELENA Nicotine (Nicotine 21 Mg Patch.Td24) 21 mg TRANSDERMA DAILY [facility] Last Admin: 04/17/21 09:43 Dose: 21 mg Documented by: GREGOR Omeprazole (Omeprazole 20 Mg Capsule.Dr) 20 mg PO DAILY@0630 [facility] Last Admin: 04/17/21 06:48 Dose: 20 mg Documented by: SAVANNAH Oxycodone HCl (Oxycodone Hcl Immed Release 5 Mg Tablet) 5 mg PO Q6H PRN PRN Reason: Pain, Severe (Pain Scale 7-10) Last Admin: 04/17/21 11:23 Dose: 5 mg Documented by: INGRID Prednisone (Prednisone 20 Mg Tablet) 40 mg PO DAILY [facility] Last Admin: 04/17/21 09:44 Dose: 40 mg Documented by: GREGOR Sodium Chloride (0.9 % Sodium Chloride Flush 3 Ml Syringe) 3 ml IVFLUSH QSHIFT [facility] Last Admin: 04/17/21 09:43 Dose: 3 ml Documented by: GREGOR Tamsulosin HCl (Tamsulosin Hcl 0.4 Mg Capsule) 0.4 mg PO DAILY [facility] Last Admin: 04/17/21 09:44 Dose: 0.4 mg Documented by: GREGOR Labs CBC & Chem 7: 04/14/21 05:55 04/14/21 05:55 Assessment and Plan (1) Respiratory failure with hypoxia: Status: Acute (2) Acute exacerbation of chronic obstructive airways disease: Status: Acute (3) Moderate protein malnutrition: Status: Acute Assessment and Plan: 81F presented with sob acute on chronic hypoxic respritory failure due to copd excarbation now back to chronic hypoxic state changed to po prednisone continue kristy canales plan for pulm rehab when available moderate protein calorie malnutrition encourage nutrition intake Quality Stroke Does the patient have a stroke diagnosis?: No VTE Prior VTE?: No VTE Risk Level:: Medical - moderate - high VTE Device Contraindication: Treatment Not Indicated VTE Drug Contraindication: N/A - Med Ordered
[2021-04-17 17:01] LABS: COVID-19 Test Negative (Negative)
[2021-04-18] MEDS: Azithromycin 500 MG TABLET PO (01:07)
[2021-04-18] MEDS: Enoxaparin Sodium 30 MG/0.3 ML SYRINGE SUBCUT (01:08)
[2021-04-18] MEDS: 0.9 % Sodium Chloride Flush 3 ML SYRINGE IVFLUSH ×2 (01:08→11:40)
[2021-04-18] MEDS: Acetaminophen 325 MG TABLET 650 MG PO (01:12)
[2021-04-18] MEDS: Melatonin 3 MG TABLET 6 MG PO (01:13)
[2021-04-18 03:25] VITALS: BP 138/62; PULSE 78; RESP 18; TEMP 36.2; O2SAT 98
[2021-04-18] MEDS: Omeprazole 20 MG CAPSULE.DR PO (05:24)
[2021-04-18 08:00] VITALS: BP 144/65; PULSE 73; RESP 18; TEMP 36.6; O2SAT 98
[2021-04-18] MEDS: Aspirin Enteric Coated 81 MG TABLET.DR PO (10:10)
[2021-04-18] MEDS: predniSONE 20 MG TABLET 40 MG PO (10:11)
[2021-04-18] MEDS: Nicotine 21 MG PATCH.TD24 TRANSDERMA (10:13)
[2021-04-18] MEDS: Atorvastatin Calcium 10 MG TABLET PO (10:14)
[2021-04-18] MEDS: Tamsulosin HCL 0.4 MG CAPSULE PO (10:14)
[2021-04-18] MEDS: DULoxetine HCl 60 MG CAPSULE.DR PO (10:14)
--- NOTE | 2021-04-18 11:36 | MHC.CM.PN ---
Per MD, Patient will be medically cleared for dc to Acute Inpatient Rehab today. Patient will dc today at 6PM to [facility], via [facility]. CM addressed IMM with Patient, providing her with the original and placing a copy on the chart. Patient is aware of and in agreement with the dc plan. Per Patient's request, IZA spoke with Daughter/HCP/Rukhsana @ [phone] and informed her of the dc plan. Rukhsana too is in agreement with the dc plan.
[2021-04-18 11:38] VITALS: BP 134/63; PULSE 63; RESP 19; TEMP 36.6; O2SAT 99
[2021-04-18 14:50] VITALS: BP 134/63; PULSE 63; O2SAT 99
--- NOTE | 2021-04-18 14:58 | PM.DS ---
DS: Providers Provider Date of Service: 04/18/21 Date of admission: 04/13/21 00:55 Date of discharge: 04/18/21 Primary care physician: [facility] Consults: 04/13/21 00:59 Consult to Pulmonology Routine Consulting Provider: Juliano Benitez Reason for consultation: Rec COPD DS: Diagnosis Discharge Diagnosis (1) Respiratory failure with hypoxia: Status: Acute (2) Acute exacerbation of chronic obstructive airways disease: Status: Acute (3) Moderate protein malnutrition: Status: Acute DS: Summary Hospital Course Hospital Course: 81-year-old male with a past medical history of COPD 3 L of home oxygen tobacco dependence, GERD, anemia presented to the hospital with a chief complaint of shortness of breath; patient mentions that over the past couple days he has been having increased shortness of breath associated mild wheezing.? Denies any chest pain palpitations lightheadedness or dizziness.? Mentioned that his home oxygen was also not properly working.? As his shortness of breath is getting worse he called EMS and presented to the ER for further evaluation. Denies any fever chills cough.? Denies any nausea vomiting diarrhea. Denies any urinary symptoms. Review of all other systems is negative except mentioned above. HOSPITAL COURSE: Patient came to the hospital because COPD exacerbation: Subsequently started on steroids, nebs, azithromycin, oxygen support subsequently patient seems to be improving: Going to the rehab, completed 5 days of azithromycin. Patient will go p.o. steroids Short course. Above management discussed with the patient in detail length she understand and in agreement with the above plan, time spent 50 minutes and 50% time spent on counseling. Significant findings: As above. Procedures performed: None. Treatment and response: As above. Complications: None. Time Spent with Patient Time attestation: Total time spent providing and/or coordinating discharge services: Discharge coordination time: Greater than 30 minutes Quality: Stroke Does the patient have a stroke diagnosis?: No Physical Exam Vital Signs: Vital Signs: Last Vital Signs Temp 97.9 F 04/18/21 11:38 Pulse 63 04/18/21 14:50 Resp 19 04/18/21 11:38 BP 134/63 04/18/21 14:50 Pulse Ox 99 04/18/21 14:50 Body Mass Index 17.6 ? General: AO X 3, seems pleasant. Resp:? Fair air entry, no wheezing or rales. CVS: S1,S2,RRR GI: soft, non tender, non distended Neuro:? motor grossly intact Psych: appropriate affect ms: Moves all extremities, no pain. DS: Data Data Completed and Pending Completed studies during hospitalization [Text1]: Procedures Transfusion of Nonautologous Red Blood Cells into Peripheral Vein, Percutaneous Approach (08/01/20) Labs on day of discharge: Laboratory Results - last 24 hr 04/17/21 16:39 COVID-19 ([facility]) Negative COVID-19 Clin Com See Note Discharge Plan Discharge Patient Disposition: Xfer Inpatient Rehab Fac Discharge Diagnosis: copd excerebation Referrals: [facility] [Outside] - 1 Week Center,[facility] [Primary Care Provider] - 1 Week Discharge Medications: New prednisone 20 mg tablet 40 mg PO DAILY Qty: 4 RF: 0 Continued Atrovent HFA 17 mcg/actuation HFA aerosol inhaler 2 puff inhalation TID RF: 0 aspirin 81 mg Tablet,Delayed Release (Dr/Ec) 81 mg PO DAILY RF: 0 Hold Instructions: Resume on 08/06/20. simvastatin 20 mg tablet 20 mg PO DAILY RF: 0 docusate sodium 100 mg capsule 1 cap PO DAILY PRN (Reason: constipation) RF: 0 albuterol sulfate 90 mcg/actuation HFA aerosol inhaler 2 puff PO Q6H PRN (Reason: wheezing) RF: 0 fluticasone propionate 50 mcg/actuation spray,suspension 1 - 2 spray intranasal DAILY RF: 0 duloxetine 60 mg capsule,delayed release(DR/EC) 60 mg PO DAILY RF: 0 ferrous sulfate [Iron (ferrous sulfate)] 325 mg (65 mg iron) tablet 325 mg PO BID Qty: 60 RF: 0 doxycycline monohydrate 100 mg capsule 100 mg PO BID Qty: 10 RF: 0 Anoro Ellipta 62.5-25 mcg/actuation blister with device 1 puff inhalation DAILY RF: 0 omeprazole 20 mg capsule,delayed release(DR/EC) 20 mg PO DAILY@0630 RF: 0 Discontinued celecoxib 200 mg capsule 1 cap PO DAILY RF: 0 Discharge Orders: Discharge Order (Routine); Ordered 04/18/21 Ordered By: Li Watson Diet: advance to usual diet Activity on Discharge: As tolerated Stand Alone Forms: Patient Portal Discharge page Care Plan Goals: Patient came to the hospital because COPD exacerbation: Subsequently started on steroids, nebs, azithromycin, oxygen support subsequently patient seems to be improving: Going to the rehab, completed 5 days of azithromycin. Patient will go p.o. steroids Short course. Health Concerns: As above. Plan of Treatment: As above. Assessment: As above.
[2021-04-18 15:15] VITALS: BP 120/59; PULSE 94; RESP 20; TEMP 36.9; O2SAT 96
--- NOTE | 2021-04-18 18:03 | PC.NURSE ---
Report called to Romina Sas Administrator at [facility] at 1800. Ambulance transport at 1805
== END 2021-04-18 18:10 | DRG 190 ==
LOC: HO.ED 04-13 00:55 → HO.EDOVER 04-13 01:19 → HO.IMC 04-13 11:25
PROVIDERS: Internal Medicine; Admitting Provider Hospitalist; Emergency Provider Emergency Medicine; Visit Provider Internal Medicine
DX: J44.1 Chronic obstructive pulmonary disease with (acute) exacerbation (principal); J96.21 Acute and chronic respiratory failure with hypoxia; E44.0 Moderate protein-calorie malnutrition; Z68.1 Body mass index [BMI] 19.9 or less, adult; K21.9 Gastro-esophageal reflux disease without esophagitis; F17.210 Nicotine dependence, cigarettes, uncomplicated; Z71.6 Tobacco abuse counseling; Z20.822 Contact with and (suspected) exposure to COVID-19; Z88.2 Allergy status to sulfonamides; Z79.82 Long term (current) use of aspirin; Z79.51 Long term (current) use of inhaled steroids; Z79.899 Other long term (current) drug therapy
CPT/HCPCS: 0241U; 36415; 51798; 70450; 71045; 80048; 80076; 81001; 83605; 83690; 83880; 84484; 85025; 85027; 87040; 87086; 87088; 87186; 87635; 93005; 94640; 96361; 96365; 96375; 97110; 97116; 97162; 99285; C1758; J0456; J1650; J2405; J2920; J2930; J3475

== ENCOUNTER 2021-05-02 13:44 | Emergency (ER) | payer MEDICARE, SELFPAY ==
--- NOTE | ~2021-05-02 | XR_ITS ---
EXAMINATION: XR CHEST CLINICAL INFORMATION: Shortness of breath COMPARISON: Previous chest x-rays most recent from earlier this month TECHNIQUE: Frontal view of the chest was obtained. FINDINGS: The cardiac and mediastinal contours are stable. The lungs are well inflated. There are increased linear markings at the right lung base questionable for atelectasis or possibly a small infiltrate. There is new blunting of the right lateral costophrenic angle questionable for a small right pleural effusion or pleural thickening. The left lung is clear. There is no pneumothorax. Bony structures are unremarkable. XR/XR chest 1V IMPRESSION: Well-inflated lungs. Question atelectasis or small infiltrate at the right lung base and small right pleural effusion or pleural thickening.
[2021-05-02 14:06] VITALS: BP 126/69; BP 138/58; PULSE 94; PULSE 95; RESP 27; TEMP 37.3; O2SAT 88; O2SAT 97; BMI 19.5
[2021-05-02 14:22] LABS: MANUAL DIFF FLAG NO
[2021-05-02 14:24] LABS: Basophils Percent Auto 0.2 % (0-2); Eosinophils Absolute Auto 0.2 X10*3/uL (0.0-0.4); Hematocrit 31.3 % (37-47); Hemoglobin 9.8 g/dl (12.0-16.0); Imm Gran Abs Auto 0.06 X10*3/uL (0.00-0.03); Imm Gran Pct Auto 0.4 % (0.0-0.4); Lymphocytes Absolute Auto 1.5 X10*3/uL (1.2-4.9); Lymphocytes Percent Auto 8.9 % (20-40); Mean Corpuscular HGB Conc 31.3 g/dl (31.0-35.0); Mean Corpuscular Hemoglobin 30.2 pg (27.0-33.0); Mean Corpuscular Volume 96.3 fL (80-98); Mean Platelet Volume 10.6 fL (9.4-12.3); Monocytes Percent Auto 5.8 % (2-11); Neutrophils Absolute Auto 14.1 X10*3/uL (2.0-8.3); Neutrophils Percent Auto 83.7 % (45-73); Platelet Count 280 X10*3/uL (160-400); Red Blood Count 3.25 X10*6/uL (4.20-5.50); Red Cell Distribution Width 16.2 % (11.0-16.0); White Blood Count 16.8 X10*3/uL (4.8-10.8)
--- NOTE | 2021-05-02 14:26 | PC.NURSE ---
patient a&ox3, labs drawn, pt awaiting provider, classroom monitor intact, vss, will continue to monitor.
--- NOTE | 2021-05-02 14:43 | ED_ITS ---
HPI - General Adult General Chief complaint: Dyspnea Stated complaint: COPD--LOW O2 SAT Time Seen by Provider: 05/02/21 14:30 Source: patient History of Present Illness HPI narrative: This is an 81-year-old female who had recently had a COPD exacerbation, admission to the hospital. The patient was discharged on April 18 from the hospital on doxycycline and prednisone, among other medicines. Doxycycline was for 5 days, prednisone for to. Today the visiting nurse noted that the patient apparently had a oxygen and in the upper 80s on her usual oxygen per nasal cannula. Patient herself at this point denies shortness of breath, increased cough, chest pain. She does ask for nicotine patch. She states she had quit smoking prior to her last admission. She denies any headache, abdominal pain, vomiting, diarrhea, swelling in her extremities. Related Data Home Medications Medication Instructions Recorded Confirmed albuterol sulfate 90 mcg/actuation 2 puff PO Q6H PRN 05/15/20 04/13/21 aerosol inhaler aspirin 81 mg tablet,delayed 81 mg PO DAILY 05/15/20 04/13/21 release docusate sodium 100 mg capsule 1 cap PO DAILY PRN 05/15/20 04/13/21 duloxetine 60 mg capsule,delayed 60 mg PO DAILY 05/15/20 04/13/21 release fluticasone propionate 50 1 - 2 spray INTRANASAL DAILY 05/15/20 04/13/21 mcg/actuation nasal spray,suspension ipratropium bromide 17 2 puff INHALATION TID 05/15/20 04/13/21 mcg/actuation HFA aerosol inhaler (Atrovent HFA) simvastatin 20 mg tablet 20 mg PO DAILY 05/15/20 04/13/21 omeprazole 20 mg capsule,delayed 20 mg PO DAILY@0630 04/13/21 04/13/21 release umeclidinium 62.5 mcg-vilanterol 1 puff INHALATION DAILY 04/13/21 04/13/21 25 mcg/actuation powdr for inhalation (Anoro Ellipta) atorvastatin 10 mg tablet 1 tab PO DAILY 05/02/21 fluticasone furoate 100 1 puff INHALATION DAILY 05/02/21 mcg/actuation blister powder for inhalation (Arnuity Ellipta) umeclidinium 62.5 mcg-vilanterol 1 puff INHALATION DAILY 09/21/21 25 mcg/actuation powdr for inhalation (Anoro Ellipta) Previous Rx's Medication Instructions Recorded ferrous sulfate 325 mg (65 mg 325 mg PO BID #60 tab 08/04/20 iron) tablet (Iron (ferrous sulfate)) prednisone 20 mg tablet 40 mg PO DAILY #4 tab 04/18/21 prednisone 20 mg tablet 20 mg PO DAILY #5 tab 05/02/21 Allergies Allergy/AdvReac Type Severity Reaction Status Date / Time Sulfa (Sulfonamide Allergy Unknown HIVES Verified 04/12/21 22:58 Antibiotics) erythromycin base AdvReac Mild GI UPSET Verified 04/12/21 22:58 [ERYTHROMYCIN BASE] Review of Systems Review of Systems: Yes Other (Limited by patient's mental status) Constitutional: Constitutional: Reports as per HPI, Denies fever(s) and Denies headache(s) ENT: Denies headache(s) Cardiovascular: Cardiovascular: Reports dyspnea Respiratory: Respiratory: Denies cough and Reports dyspnea Gastrointestinal: Gastrointestinal: Reports no additional gastrointestinal complaints Neurologic: Denies headache(s) and Denies Sensory deficit (Neuro) [facility] Past Medical History Medical History (Updated 05/02/21 @ 17:41 by Tyler Harris MD) COPD (chronic obstructive pulmonary disease) COPD (chronic obstructive pulmonary disease) Depression GERD (gastroesophageal reflux disease) IBS (irritable bowel syndrome) Moderate protein malnutrition Respiratory failure with hypoxia Social History Social History Household Members: None Housing: Condominium Do you presently have visiting nurse or other home services: No Alcohol intake: never Patient Tobacco Use Status: Current everyday Tobacco user Tobacco use type: Cigarette Cigarettes Per Day: 15 Second Hand Smoke Exposure: No Use of substances other than those prescribed or required for medical reasons: No Advance Directives: No Advance Directives Information Provided: Yes service: No Current occupational status: retired Physical Exam Vital Signs: Vital Signs: Last Vital Signs Temp 98.2 F 05/02/21 16:00 Pulse 99 05/02/21 16:00 Resp 26 H 05/02/21 16:09 BP 145/55 H 05/02/21 16:00 Pulse Ox 97 05/02/21 16:00 Oxygen Flow Rate 3 05/02/21 14:06 Body Mass Index 19.5 Const: Other: Patient hard of hearing, somewhat difficult to interact with G eneral: cooperative, no acute distress and alert Orientation/consciousness: patient oriented x3 HENMT: Head: Yes normal to inspection Eyes: General: appearance normal, both eyes and all related structures Eyelids: Yes eyelids normal Conjunctivae: conjunctivae normal Pupils: Equal, round and reactive pupils present Neck: Neck: Yes normal visual inspection and Yes supple Chest: Chest palpation & inspection: normal inspection of the chest Resp: Effort & Inspection: normal respiratory effort Auscultation: clear to auscultation bilaterally and no wheezes Cardio: Rate: regular rate Rhythm: regular rhythm Heart sounds: S1 normal heart sound present, S2 normal heart sound present, no gallops, no murmurs and no rubs GI: Palpation (GI): Soft to palpation, nontender and Other GI palpation findings present (Non-distended) Auscultation: normal bowel sounds Skin: General skin exam: no rashes or lesions noted Neuro: General: patient oriented x3, no focal motor deficits and CN's II-XI in tact bilaterally Cranial nerves: Yes Equal, round and reactive pupils present Cognition (Neuro): normal cognition Motor exam (neuro): 5/5 motor strength present throughout Sensory Exam: No Sensory deficit (Neuro) Extrem: General: Yes normal to inspection and Yes no pedal edema Psych: Appearance: grossly normal Affect: normal affect Medical Decision Making [facility] Narrative Medical decision making narrative: Patient with end-stage COPD, had recently been admitted and then was in a group home facility until yesterday. Today had a visiting nurse come felt that she was not safe at home and referred her here. The patient told the nurse case management that she had fallen today, had not given me that information. The patient did not appear to have any worsened respiratory issues, had good air movement on exam and her pulse oximetry was 99% on 2 L nasal cannula, whereas she stated she is on and 4 L nasal cannula generally. Chest x-ray showed suggestion of possible lower lung field infiltrates versus atelectasis, however these did not appear to be definite. White count was mildly elevated, which could be due to infection. Patient had been on steroids although this appears to have been discontinued several days ago. Patient's BUN was somewhat elevated relative her creatinine, though her creatinine was improved over prior. Patient was hydrated with normal saline 1 L IV. Patient's daughter did report that she does not drink much water, has only taking supplements such as Ensure. Case management was consulted and felt the patient was unsafe to be home alone. Plan is for the patient to be kept in the ED pending PT evaluation tomorrow, patient may need placement in assisted living. Lab Data Result diagrams: 05/02/21 14:19 05/02/21 16:02 Labs: Lab Results 05/02/21 05/02/21 05/02/21 Range/Units 14:19 15:09 16:02 WBC 16.8 H (4.8-10.8) X10*3/uL RBC 3.25 L (4.20-5.50) X10*6/uL Hgb 9.8 L (12.0-16.0) g/dl Hct 31.3 L (37-47) % MCV 96.3 (80-98) fL MCH 30.2 (27.0-33.0) pg MCHC 31.3 (31.0-35.0) g/dl RDW 16.2 H (11.0-16.0) % Plt Count 280 D (160-400) X10*3/uL MPV 10.6 (9.4-12.3) fL Immature Gran % (Auto) 0.4 (0.0-0.4) % Neut % (Auto) 83.7 H (45-73) % Lymph % (Auto) 8.9 L (20-40) % Reeves % (Auto) 5.8 (2-11) % Eos % (Auto) 1.0 (0-4) % Baso % (Auto) 0.2 (0-2) % Lymph # (Auto) 1.5 (1.2-4.9) X10*3/uL Reeves # (Auto) 1.0 (0.1-1.2) X10*3/uL Eos # (Auto) 0.2 (0.0-0.4) X10*3/uL Baso # (Auto) 0.0 (0.0-0.2) X10*3/uL Abs Immat Gran (auto) 0.06 H (0.00-0.03) X10*3/uL Absolute Neuts (auto) 14.1 H (2.0-8.3) X10*3/uL Absolute Nucleated RBC 0.000 (0.0-0.012) X10*3/uL Nucleated RBC % (auto) 0.0 (0.0-0.2) /100WBC Sodium 140 (135-145) mmol/L Potassium 4.9 (3.3-5.1) mmol/L Chloride 102 (96-108) mmol/L Carbon Dioxide 31 H (22-29) mmol/L Anion Gap 12 (12-20) BUN 48 H D (9-16) mg/dL Creatinine 0.79 (0.5-1.4) mg/dL Estim Creat Clear Calc 40.6 Estimated GFR > 60 Random Glucose 93 (60-115) mg/dL Calcium 9.2 D (8.4-10.2) mg/dL COVID-19 ([facility]) Negative (Negative) COVID-19 Clin Com See Note Discharge Plan Discharge Clinical Impression: COPD (chronic obstructive pulmonary disease), Dehydration, mild Clinical Impression: (Ruled Out): Leukocytosis Patient Disposition: Still a Patient Instructions: COPD (Chronic Obstructive Pulmonary Disease) (ED) Additional Instructions: Use the prednisone and doxycycline as prescribed. Continue your inhalers as prescribed on discharge from the hospital. Return for any new or worsened symptoms. Follow up with her primary care physician Prescriptions: New prednisone 20 mg tablet 20 mg PO DAILY Qty: 5 RF: 0 No Action Atrovent HFA 17 mcg/actuation HFA aerosol inhaler 2 puff inhalation TID RF: 0 aspirin 81 mg Tablet,Delayed Release (Dr/Ec) 81 mg PO DAILY RF: 0 Hold Instructions: Resume on 08/06/20. simvastatin 20 mg tablet 20 mg PO DAILY RF: 0 docusate sodium 100 mg capsule 1 cap PO DAILY PRN (Reason: constipation) RF: 0 albuterol sulfate 90 mcg/actuation HFA aerosol inhaler 2 puff PO Q6H PRN (Reason: wheezing) RF: 0 fluticasone propionate 50 mcg/actuation spray,suspension 1 - 2 spray intranasal DAILY RF: 0 duloxetine 60 mg capsule,delayed release(DR/EC) 60 mg PO DAILY RF: 0 atorvastatin 10 mg tablet 1 tab PO DAILY RF: 0 Anoro Ellipta 62.5-25 mcg/actuation blister with device 1 puff inhalation DAILY RF: 0 Arnuity Ellipta 100 mcg/actuation blister with device 1 puff inhalation DAILY RF: 0 ferrous sulfate [Iron (ferrous sulfate)] 325 mg (65 mg iron) tablet 325 mg PO BID Qty: 60 RF: 0 Anoro Ellipta 62.5-25 mcg/actuation blister with device 1 puff inhalation DAILY RF: 0 omeprazole 20 mg capsule,delayed release(DR/EC) 20 mg PO DAILY@0630 RF: 0 prednisone 20 mg tablet 40 mg PO DAILY Qty: 4 RF: 0
[2021-05-02] MEDS: Nicotine 7 MG PATCH.TD24 TRANSDERMA (15:07)
[2021-05-02 15:28] LABS: COVID-19 Test Negative (Negative)
[2021-05-02 16:00] VITALS: BP 145/55; PULSE 99; RESP 24; TEMP 36.8; O2SAT 97
[2021-05-02] MEDS: predniSONE 20 MG TABLET PO (16:06)
[2021-05-02 16:09] VITALS: RESP 26
[2021-05-02 16:21] LABS: Anion Gap 12 (12-20); Blood Urea Nitrogen 48 mg/dL (9-16); Calcium 9.2 mg/dL (8.4-10.2); Carbon Dioxide 31 mmol/L (22-29); Chloride 102 mmol/L (96-108); Creatinine Clr Calc Pharmacy 40.6; Estimated Glomerular Filt Rate > 60; Glucose Random 93 mg/dL (60-115); Potassium 4.9 mmol/L (3.3-5.1); Sodium 140 mmol/L (135-145)
[2021-05-02] MEDS: 0.9 % Sodium Chloride 1,000 ML 999 ML IV (16:47)
--- NOTE | 2021-05-02 16:47 | PC.NURSE ---
ivf running per order
[2021-05-02 18:00] VITALS: BP 158/72; PULSE 88; RESP 24; TEMP 36.9; O2SAT 98
[2021-05-02 20:00] VITALS: BP 147/65; PULSE 80; RESP 24; TEMP 37.1; O2SAT 98
--- NOTE | 2021-05-02 21:08 | PHA.MEDREC ---
Pharmacy Consult ? Medication Reconciliation Pharmacy has completed the medication reconciliation. Patient recently filled atorvastatin. She is still taking simvastatin and has not started the lipitor. Thanks Daniel Cornell Pharm D
[2021-05-02 22:00] VITALS: BP 158/68; PULSE 83; RESP 22; TEMP 36.7; O2SAT 98
--- NOTE | 2021-05-02 22:27 | MHC.CM.ED ---
Addendum entered by Bre Upton 05/02/21 22:52: Pt is oxygen dependant at home on 2liters. Uses [facility]. HCP and POA are on file. Addendum entered by Bre Upton 05/02/21 22:38: Pt is Covid Negative. Unsure of vaccination status. Will reach out to Génesis in am. Original Note: CM was asked to meet with patient's daughter prior to d/c home. CM met with patient and daughter. Pt very frail appearing, very thin, and weak. Daughter is answering most questions. Daughter tells CM that pt lives alone, uses a cane and a walker, has meals on wheels for 2 meals/day and no other services. Pt has a neighbor who cleans and occasionally helps pt. Per daughter, MALOU RN did not feel pt was safe to be alone. Daughter does not feel patient is safe to be at home alone. PCP is [facility]. Daughter is Génesis Beach ([phone]). Génesis is the POA and HCP. Has forms. Will need to copy in am when daughter returns. Génesis states her mother has LTC insurance and can pay for assisted living or LTC. Problem is that pt is not agreeable to leave her home. Explained to Génesis that her options are to provide [facility] care at home, assisted living, or LTC. Currently, CM recommended PT evaluation, with patient remaining in the ED overnight with possible STR placement in the am. Daughter and patient are agreeable to this plan of care. Explained to pt that she needs help and really cannot live safely at home alone. CM explained to Génesis that she could use the time her mother is in STR to research and visit local assisted living facilities. Génesis lives in [place] and is interested in something in that area. Explained that CM does not arrange assisted living. Génesis is requesting [facility] as her first choice for her mother, if no available beds, then would like something local. Contact card given. Will place referrals. CM to monitor for d/c needs.
--- NOTE | 2021-05-02 22:58 | PC.NURSE ---
patient awake/alert, registered nurse cardiac telemetry nsr 80s, vitals stable, pt here for placement, will continue to monitor.
[2021-05-03 02:00] VITALS: BP 141/53; PULSE 86; RESP 18
--- NOTE | 2021-05-03 04:13 | PC.NURSE ---
PT SLEEPING, WAKES TO VOICE. DENIES COMPLAINTS AND RETURNS TO SLEEP. WILL CONTINUE TO MONITOR PT.
[2021-05-03 06:49] VITALS: BP 153/58; PULSE 89; RESP 18
--- NOTE | 2021-05-03 07:14 | PC.NURSE ---
report from nahomi baker pt here for copd exac s/p dc from rehab. lives alone, had pt eval this am, pt likely will be offered rehab, pt does not wish to return to rehab, desires to go home per physical therapist. [email or web address].
[2021-05-03 07:18] VITALS: BP 153/58; PULSE 89
--- NOTE | 2021-05-03 08:36 | MHC.CM.ED ---
Addendum entered by Marina Jiang 05/03/21 09:04: Patient has not been vaccinated for Covid. Original Note: Patient remains in ER. Physical therapy eval completed. Short term rehab is recommended. [facility] is first choice. Clinical updates sent via [email or web address]. Continue to monitor for d/c needs.
--- NOTE | 2021-05-03 09:44 | MHC.CM.ED ---
As of right now, [facility] is only facility that has an unvaccinated bed available. Attempted to reach Génesis via telephone at [phone]. Left voicemail requesting return telephone call. Continue to monitor for d/c needs.
--- NOTE | 2021-05-03 10:11 | MHC.CM.ED ---
Met with patient and daughter Génesis in regards to discharge planning. Both patient and daughter are agreeable to bed at [facility] [place] Patient can leave at 11am. [facility] booked. Med nec with chart. Continue to monitor for d/c needs.
== END 2021-05-03 11:50 | disposition skilled nursing facility (03) ==
PROVIDERS: Emergency Provider Emergency Medicine
DX: J44.9 Chronic obstructive pulmonary disease, unspecified (principal); E86.0 Dehydration; F17.210 Nicotine dependence, cigarettes, uncomplicated; Z71.6 Tobacco abuse counseling; Z20.822 Contact with and (suspected) exposure to COVID-19; Z79.899 Other long term (current) drug therapy
CPT/HCPCS: 36415; 71045; 80048; 85025; 87635; 96360; 97162; 99285

== ENCOUNTER 2021-07-06 16:24 | Emergency (ER) | payer MEDICARE, SELFPAY ==
--- NOTE | ~2021-07-06 | CT_ITS ---
EXAMINATION: CT HEAD WITHOUT CONTRAST CT CERVICAL SPINE WITHOUT CONTRAST CLINICAL INFORMATION: Fall. Head injury. COMPARISON: CT head dated 04/14/[address] head as well as CT cervical spine dated 05/14/2020. TECHNIQUE: Contiguous axial imaging was performed from the skull base to vertex without intravenous administration of contrast. Contiguous axial CT images of the cervical spine were obtained without contrast. Sagittal and coronal reformats were provided and reviewed. This CT examination was performed using dose optimization techniques as appropriate, variously including the following: *Automated exposure control. *Adjustment of mA and/or kV according to patient size (this includes techniques or standardized protocols for targeted exams where dose is matched to indication/reason for exam; i.e. extremities or head). *Use of iterative reconstruction technique. DLP: 915 mGy-cm FINDINGS: HEAD: There is no evidence of acute intracranial hemorrhage or territorial infarction. No abnormal mass effect or midline shift is seen. [id number] matter differentiation is well preserved. No extra-axial fluid collections are identified. Prominence of the ventricles and sulci, consistent with diffuse atrophy. Hypoattenuation of the periventricular white matter. Posterior soft tissue laceration. Intact calvarium. The mastoid air cells and visualized portions of the paranasal sinuses are well aerated. CERVICAL SPINE: Chronic grade 1 anterolisthesis of C3 on C4, unchanged. Chronic grade 1 retrolisthesis of C5 on C6, unchanged. No acute fracture or subluxation. No loss of vertebral body height. Loss of intervertebral disc height with endplate osteophytes at C4 through C7. Multilevel bilateral facet arthropathy. No lytic or blastic osseous lesion. Unremarkable prevertebral soft tissues. No abnormal soft tissue mass or fluid collection. Thyroid within normal limits. Emphysematous changes within the lung apices. Redemonstration of multilevel bilateral neural foraminal stenosis. CT/CT cervical spine wo con IMPRESSION: HEAD: No acute intracranial hemorrhage or mass effect. Mild diffuse atrophy and chronic microvascular ischemic disease, not significantly changed. CERVICAL SPINE: No acute fracture or subluxation. Multilevel degenerative disc disease with bilateral neural foraminal stenosis, not significantly changed.
--- NOTE | 2021-07-06 16:35 | ED.FALL ---
HPI - Fall General Chief Complaint: Fall Stated Complaint: fall Time Seen by Provider: 07/06/21 16:27 Source: patient and EMS Mode of arrival: EMS Limitations: no limitations History of Present Illness HPI Narrative: 81-year-old female with a past medical history of COPD dependent on nasal cannula oxygen, GERD, depression and moderate protein malnutrition presenting to the ED via EMS with C-collar in place after she had a mechanical fall at the custodial facility that she is currently residing at prior to arrival. She reports that she was trying to go to the bathroom and she had her nonskid socks on and she was going to quickly and slipped she tried to grab on to the door although she fell backwards and hit her head. She denies loss of consciousness. Her roommate and the nursing staff witnessed the fall. There was no prolonged downtime. She reports that this was sodium mechanical. They wrapped her head with gauze due to she has a laceration. She denies any symptoms prior to the fall such as dizziness, chest pain or shortness of breath or any other symptoms. She is currently only on aspirin not on any other blood thinners. At this time she denies any dizziness, headaches, neck pain, change in vision, jaw pain, nausea/vomiting, sore throat, cough, chest pain, shortness of breath, dyspnea on exertion, orthopnea, palpitations, back pain, abdominal pain, dysuria, hematuria, abnormal vaginal discharge, rashes, focal weakness or any weakness or recent travel or sick contacts or any other symptoms complaints or concerns at this time. MD complaint: fall Onset (ago): minute(s) (Prior to arrival) Fall witnessed: yes, by living facility staff Place fall occurred: [facility] Loss of consciousness: none Prolonged down time: no Symptoms prior to fall: none Context: tripped/slipped Location of injury: head Severity: mild Quality: aching Associated symptoms (after fall): denies Related Data Home Medications Medication Instructions Recorded Confirmed albuterol sulfate 90 mcg/actuation 2 puff PO Q6H PRN 05/15/20 05/02/21 aerosol inhaler aspirin 81 mg tablet,delayed 81 mg PO DAILY 05/15/20 05/02/21 release docusate sodium 100 mg capsule 1 cap PO DAILY PRN 05/15/20 05/02/21 duloxetine 60 mg capsule,delayed 60 mg PO DAILY 05/15/20 05/02/21 release fluticasone propionate 50 1 - 2 spray INTRANASAL DAILY PRN 05/15/20 05/02/21 mcg/actuation nasal spray,suspension ipratropium bromide 17 2 puff INHALATION TID 05/15/20 05/02/21 mcg/actuation HFA aerosol inhaler (Atrovent HFA) simvastatin 20 mg tablet 20 mg PO DAILY 05/15/20 05/02/21 omeprazole 20 mg capsule,delayed 20 mg PO DAILY@0630 04/13/21 05/02/21 release umeclidinium 62.5 mcg-vilanterol 1 puff INHALATION DAILY 04/13/21 05/02/21 25 mcg/actuation powdr for inhalation (Anoro Ellipta) fluticasone furoate 100 1 puff INHALATION DAILY 05/02/21 05/02/21 mcg/actuation blister powder for inhalation (Arnuity Ellipta) prednisone 10 mg tablet 1 tab PO DAILY 05/02/21 05/02/21 Previous Rx's Medication Instructions Recorded ferrous sulfate 325 mg (65 mg 325 mg PO BID #60 tab 08/04/20 iron) tablet (Iron (ferrous sulfate)) cefuroxime axetil 250 mg tablet 250 mg PO BID 7 Days #14 tab 07/06/21 Allergies Allergy/AdvReac Type Severity Reaction Status Date / Time Sulfa (Sulfonamide Allergy Unknown HIVES Verified 04/12/21 22:58 Antibiotics) erythromycin base AdvReac Mild GI UPSET Verified 04/12/21 22:58 [ERYTHROMYCIN BASE] Review of Systems Review of Systems: Constitutional : No Weight loss, No Fever, No Chills, No Night Sweats, No Fatigue, No Malaise ENT/Mouth : No Hearing loss, No Ear Pain, No Nasal Congestion, No Sinus Pain, No Hoarseness, No sore throat, No Rhinorrhea, No Swallowing Difficulty Eyes: No Eye Pain, No Swelling, No Redness, No Foreign Body, No Discharge, No Vision Changes Cardiovascular : No Chest Pain, No SOB, No Dyspnea on Exertion, No Orthopnea, No Edema, No Palpitations Respiratory : No Cough, No Sputum, No Wheezing, No Smoke Exposure, No Dyspnea Gastrointestinal : No Nausea, No Vomiting, No Diarrhea, No Constipation, No abdominal Pain, No Hematochezia, No Melena Genitourinary : no irregular bleeding, No Dysuria, No Urinary Frequency, No Hematuria, No Urinary Incontinence, No Urgency, No Flank Pain, No Urinary Flow Changes, No Hesitancy Musculoskeletal : No joint pain, No Myalgias, No Joint Swelling Skin : + scalp laceration No Skin Lesions, No rash Neuro : + head injury, No Weakness, No Numbness, No Paresthesias, No Loss of Consciousness, No Dizziness, No Headache Psych : No Anxiety/Panic, No Depression, No SI/HI/AH/VH, No Social Issues, Heme/Lymph: No Bruising, No Bleeding,No Lymphadenopathy Endocrine : No Polyuria, No Polydipsia, No Temperature Intolerance Yes all other systems are reviewed and are negative PENDING SALE TO [facility] Past Medical History Attestation statement: The following information was validated with the patient. Medical History COPD (chronic obstructive pulmonary disease) COPD (chronic obstructive pulmonary disease) Depression GERD (gastroesophageal reflux disease) IBS (irritable bowel syndrome) Moderate protein malnutrition Respiratory failure with hypoxia Social History Social History Household Members: None Housing: Condominium Do you presently have visiting nurse or other home services: No Alcohol intake: never Patient Tobacco Use Status: Former Tobacco user Tobacco use type: Cigarette Cigarettes Per Day: 15 Second Hand Smoke Exposure: No Use of substances other than those prescribed or required for medical reasons: No Advance Directives: No Advance Directives Information Provided: Yes service: No Current occupational status: retired Physical Exam Vital Signs: Vital Signs: Last Vital Signs Temp 97.5 F 07/06/21 18:25 Pulse 75 07/06/21 18:25 Resp 18 07/06/21 18:25 BP 156/56 H 07/06/21 18:25 Pulse Ox 100 07/06/21 18:25 Body Mass Index 19.5 Vital signs have been reviewed as normal and appeared to be correct. Blood pressure 158/66. Heart rate normal. Respiration rate normal. Temperature normal. Oxygen saturation normal. Appearance: Alert. Oriented X3. No acute distress. Head: Normal external exam. Normocephalic. Atraumatic. Able to rotate head bilaterally. No Menezes signs noted. Eyes: PERRLA. EOMI. No nystagmus noted. Conjunctiva and sclera normal. Eyelids normal. Corneal reflex normal. ENT: EAC normal. TM's Normal. No septal hematoma noted. No hemotympanum noted. Hearing normal. Pharynx normal. Uvula midline. tongue midline. Moist mucous membranes. No trismus noted. No drooling noted. No muffled voice noted. Neck: Normal inspection. Neck supple. FROM. No adenopathy. Thyroid Normal. No meningeal signs. No neck mass noted. Nontender. No signs of trauma. Although C-collar in place will not remove at this time. CVS: Normal heart rate and rhythm. Heart sound normal. No murmurs noted. Pulses normal throughout. Respiratory: No respiratory distress. Painless inspiration. Breath sounds normal. No wheezes/rales/rhonchi noted. Chest nontender. No accessory muscle usage noted or decreased air movement noted. Back: Full range of motion noted. Skin: Skin warm and dry. Normal skin color. Normal skin turgor. No rashes/lesions/lacerations noted. Extremities: Extremities exhibit normal range of motion. Extremities nontender. Able to shrug shoulders bilaterally and keep up against resistance. Neuro: Oriented X 3. No motor deficit. No sensory deficit. Reflexes normal. Moving all extremities. No focal motor deficits. Cranial nerves II-XI intact bilaterally. Facial strength normal. Normal cognition. Speech normal. Strength 5/5 throughout. No pronator drift. No tremor noted. No fasciculations noted. Muscle tone normal throughout. No asterixis noted. [id number]-dddf test normal. Heel to duran test normal. Rapid alternating movement upper extremity normal. Rapid alternating movement lower extremity normal. Hand drop from overhead-Mrs. face. No rigidity noted. NIHSS score 0. 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 She reports that she was trying to go to the bathroom and she had her nonskid socks on and she was going to quickly and slipped she tried to grab on to the door although she fell backwards and hit her head. She denies loss of consciousness. Her roommate and the nursing staff witnessed the fall. There was no prolonged downtime. She reports that this was sodium mechanical. They wrapped her head with gauze due to she has a laceration. She denies any symptoms prior to the fall such as dizziness, chest pain or shortness of breath or any other symptoms. She is currently only on aspirin not on any other blood thinners. Plan: Due to patient reporting this to slowly a mechanical fall she denies any other symptoms complaints or concerns and this was a witnessed fall and no prolonged downtime no labs will be ordered at this time. Will obtain a CT scan of brain/cervical spine. A UA. Update the patient's tetanus then repair the patient's laceration and re-evaluate. Reevaluation(s) Reevaluation #1: - CT scan of brain/cervical spine revealed chronic changes no acute processes were noted. Therefore C-collar removed at this time. We brought the patient into the shower to be able to clean all the blood from her scalp and she is now status post laceration repair with 11 teresita placed. Patient tolerated procedure well. No complications. Will obtain a UA if negative will DC home back to custodial facility with instructions to continue taking her medications as prescribed and to return in 5 days for staple removal. Patient understands agrees with this plan. Time: 18:07 Reevaluation #2: Patient still unable to give us a UA she reports that she feels like she really has to urinate although she is unable and she is requesting for us to straight cath her I explained to her as this ever happened in the past and she denies this. Therefore will get a labs at this time a CBC, magnesium and a complete metabolic panel and will straight cath the patient to evaluate patient's kidney function or if the patient has urinary tract infection we will then re-evaluate. Time: 18:46 Reevaluation #3: - labs reviewed and patient with an elevated white blood cell count at 11,000. Mild baseline anemia improved when compared to prior. BUN 24. Random glucose 119. Otherwise all other labs are within normal limits. UA positive for UTI therefore will start on antibiotics for UTI. Will DC back to custodial facility with instructions return in 5 days for staple removal and antibiotics for UTI along instructions follow-up with primary care provider and continue taking her previously prescribed medications as previously prescribed. Patient understands agrees with this plan. Time: 19:26 Procedures Laceration Laceration 1: Site: scalp Size (cm): 3 Description: linear and irregular Depth: simple, single layer (11 teresita placed) MDM - Fall Medical Records Attestation: I reviewed the patient's medical records. Lab Data Attestation: I reviewed the patient's lab results. Result diagrams: 07/06/21 18:52 07/06/21 18:52 Labs: Lab Results 07/06/21 07/06/21 07/06/21 Range/Units 18:52 18:52 19:15 WBC 11.4 H (4.8-10.8) X10*3/uL RBC 3.25 L (4.20-5.50) X10*6/uL Hgb 10.3 L (12.0-16.0) g/dl Hct 32.2 L (37.0-47.0) % MCV 99.1 H (80.0-98.0) fL MCH 31.7 (27.0-33.0) pg MCHC 32.0 (31.0-35.0) g/dl RDW 13.8 (11.0-16.0) % Plt Count 289 (160-400) X10*3/uL MPV 10.3 (9.4-12.3) fL Immature Gran % (Auto) 0.4 (0.0-0.4) % Neut % (Auto) 82.3 H (45-73) % Lymph % (Auto) 10.0 L (20-40) % [place] % (Auto) 6.7 (2-11) % Eos % (Auto) 0.4 (0-4) % Baso % (Auto) 0.2 (0-2) % Lymph # (Auto) 1.1 L (1.2-4.9) X10*3/uL [place] # (Auto) 0.8 (0.1-1.2) X10*3/uL Eos # (Auto) 0.0 (0.0-0.4) X10*3/uL Baso # (Auto) 0.0 (0.0-0.2) X10*3/uL Abs Immat Gran (auto) 0.05 H (0.00-0.03) X10*3/uL Absolute Neuts (auto) 9.4 H (2.0-8.3) x10*3/uL Absolute Nucleated RBC 0.000 (0.0-0.012) X10*3/uL Nucleated RBC % (auto) 0.0 (0.0-0.2) /100WBC Sodium 143 (135-145) mmol/L Potassium 4.9 (3.3-5.1) mmol/L Chloride 106 (96-108) mmol/L Carbon Dioxide 29 (22-29) mmol/L Anion Gap 13 (12-20) BUN 24 H (9-16) mg/dL Creatinine 0.95 (0.5-1.4) mg/dL Estim Creat Clear Calc 33.7 Estimated GFR 57 Random Glucose 119 H (60-115) mg/dL Calcium 9.3 (8.4-10.2) mg/dL Magnesium 2.0 (1.6-2.6) mg/dL Total Bilirubin < 0.2 (0.0-1.0) mg/dL AST 15 (5-31) U/L ALT 16 (0-31) U/L Alkaline Phosphatase 58 D (39-117) U/L Total Protein 5.9 L (6.5-8.0) g/dL Albumin 3.5 (3.5-5.0) g/dL Urine Color YELLOW Urine Appearance HAZY Urine pH 6.0 (5.0-8.0) Ur Specific [place] 1.025 (1.005-1.025) Urine Protein 2+ H (NEG-TRACE) MG/DL Urine Glucose (UA) NEG (NEG) MG/DL Urine Ketones NEG (NEG) MG/DL Urine Blood 2+ H (NEG) Urine Nitrite NEG (NEG) Ur Leukocyte Esterase 1+ H (NEG) Imaging Data CT scan of brain/cervical spine without contrast: Attestation: I personally reviewed and interpreted this imaging study as follows: Radiologist's impression: FINDINGS: HEAD: There is no evidence of acute intracranial hemorrhage or territorial infarction. No abnormal mass effect or midline shift is seen. Dyrw-wu-ljbyv matter differentiation is well preserved. No extra-axial fluid collections are identified. Prominence of the ventricles and sulci, consistent with diffuse atrophy. Hypoattenuation of the periventricular white matter. Posterior soft tissue laceration. Intact calvarium. The mastoid air cells and visualized portions of the paranasal sinuses are well aerated. CERVICAL SPINE: Chronic grade 1 anterolisthesis of C3 on C4, unchanged. Chronic grade 1 retrolisthesis of C5 on C6, unchanged. No acute fracture or subluxation. No loss of vertebral body height. Loss of intervertebral disc height with endplate osteophytes at C4 through C7. Multilevel bilateral facet arthropathy. No lytic or blastic osseous lesion. Unremarkable prevertebral soft tissues. No abnormal soft tissue mass or fluid collection. Thyroid within normal limits. Emphysematous changes within the lung apices. Redemonstration of multilevel bilateral neural foraminal stenosis. ? CT/CT head/brain wo con IMPRESSION: HEAD: No acute intracranial hemorrhage or mass effect. Mild diffuse atrophy and chronic microvascular ischemic disease, not significantly changed. ? CERVICAL SPINE: No acute fracture or subluxation. Multilevel degenerative disc disease with bilateral neural foraminal stenosis, not significantly changed. Discharge Plan Discharge Clinical Impression: Fall, Head injury, Laceration of scalp, UTI (urinary tract infection) Patient Disposition: Home, Self-Care Instructions: Laceration (ED), Fall Prevention for Older Adults (ED), Head Injury (ED), Urinary Tract Infection in Older Adults (ED) Prescriptions: New cefuroxime axetil 250 mg tablet 250 mg PO BID 7 Days Qty: 14 RF: 0 No [facility] Atrovent HFA 17 mcg/actuation HFA aerosol inhaler 2 puff inhalation TID RF: 0 aspirin 81 mg Tablet,Delayed Release (Dr/Ec) 81 mg PO DAILY RF: 0 Hold Instructions: Resume on 08/06/20. simvastatin 20 mg tablet 20 mg PO DAILY RF: 0 docusate sodium 100 mg capsule 1 cap PO DAILY PRN (Reason: constipation) RF: 0 albuterol sulfate 90 mcg/actuation HFA aerosol inhaler 2 puff PO Q6H PRN (Reason: wheezing) RF: 0 fluticasone propionate 50 mcg/actuation spray,suspension 1 - 2 spray intranasal DAILY PRN (Reason: Allergic Symptoms) RF: 0 duloxetine 60 mg capsule,delayed release(DR/EC) 60 mg PO DAILY RF: 0 Arnuity Ellipta 100 mcg/actuation blister with device 1 puff inhalation DAILY RF: 0 prednisone 10 mg tablet 1 tab PO DAILY RF: 0 ferrous sulfate [Iron (ferrous sulfate)] 325 mg (65 mg iron) tablet 325 mg PO BID Qty: 60 RF: 0 Anoro Ellipta 62.5-25 mcg/actuation blister with device 1 puff inhalation DAILY RF: 0 omeprazole 20 mg capsule,delayed release(DR/EC) 20 mg PO DAILY@0630 RF: 0 Referrals: Ksenia Macias PA [Emergency Midlevel Provider] - 5 days (for teresita) Print Language: Andorran
[2021-07-06 16:36] VITALS: BP 158/66; PULSE 78; RESP 16; TEMP 36.7; O2SAT 98; BMI 19.5
[2021-07-06] MEDS: Diphth,Pertus(ACell),Tet Adult 0.5 ML SYRINGE IM (17:27)
--- NOTE | 2021-07-06 17:59 | PC.NURSE ---
pt showered and 11 teresita placed
[2021-07-06 18:25] VITALS: BP 156/56; PULSE 75; RESP 18; TEMP 36.4; O2SAT 100
[2021-07-06 18:57] LABS: MANUAL DIFF FLAG NO
[2021-07-06 19:02] LABS: Basophils Percent Auto 0.2 % (0-2); Eosinophils Percent Auto 0.4 % (0-4); Hematocrit 32.2 % (37.0-47.0); Hemoglobin 10.3 g/dl (12.0-16.0); Imm Gran Abs Auto 0.05 X10*3/uL (0.00-0.03); Imm Gran Pct Auto 0.4 % (0.0-0.4); Lymphocytes Absolute Auto 1.1 X10*3/uL (1.2-4.9); Mean Corpuscular Hemoglobin 31.7 pg (27.0-33.0); Mean Corpuscular Volume 99.1 fL (80.0-98.0); Mean Platelet Volume 10.3 fL (9.4-12.3); Monocytes Absolute Auto 0.8 X10*3/uL (0.1-1.2); Monocytes Percent Auto 6.7 % (2-11); Neutrophils Absolute Auto 9.4 x10*3/uL (2.0-8.3); Neutrophils Percent Auto 82.3 % (45-73); Platelet Count 289 X10*3/uL (160-400); Red Blood Count 3.25 X10*6/uL (4.20-5.50); Red Cell Distribution Width 13.8 % (11.0-16.0); White Blood Count 11.4 X10*3/uL (4.8-10.8)
[2021-07-06 19:22] LABS: Appearance Urine HAZY; Color Urine YELLOW; Glucose Urine UA NEG (NEG); Leukocyte Esterase Urine 1+ (NEG); Nitrite Urine NEG (NEG); Specific Gravity - Urine 1.025 (1.005-1.025); UACC Culture Trigger YES; Urine Blood 2+ (NEG); Urine Ketones NEG (NEG); Urine Protein 2+ MG/DL (NEG-TRACE)
[2021-07-06 19:23] LABS: Alanine Aminotransferase 16 U/L (0-31); Albumin Level 3.5 g/dL (3.5-5.0); Alkaline Phosphatase 58 U/L (39-117); Anion Gap 13 (12-20); Aspartate Amino Transferase 15 U/L (5-31); Bilirubin Total < 0.2 mg/dL (0.0-1.0); Blood Urea Nitrogen 24 mg/dL (9-16); Calcium 9.3 mg/dL (8.4-10.2); Carbon Dioxide 29 mmol/L (22-29); Chloride 106 mmol/L (96-108); Creatinine Clr Calc Pharmacy 33.7; Estimated Glomerular Filt Rate 57; Glucose Random 119 mg/dL (60-115); Potassium 4.9 mmol/L (3.3-5.1); Sodium 143 mmol/L (135-145); Total Protein 5.9 g/dL (6.5-8.0)
[2021-07-06 19:31] LABS: Bacteria Urine 2+ /LPF; Squamous Epithelial Cell Urine 1+ /LPF
== END 2021-07-06 19:59 | disposition home or self-care (01) ==
PROVIDERS: Physician Assistant Medical; Emergency Provider Student in an Organized Health Care Education/Training Program
DX: S09.90XA Unspecified injury of head, initial encounter (principal); S01.01XA Laceration without foreign body of scalp, initial encounter; W01.198A Fall on same level from slipping, tripping and stumbling with subsequent striking against other object, initial encounter; N39.0 Urinary tract infection, site not specified; J44.9 Chronic obstructive pulmonary disease, unspecified; Z99.81 Dependence on supplemental oxygen; Y93.89 Activity, other specified; Y92.121 Bathroom in nursing home as the place of occurrence of the external cause; Y99.9 Unspecified external cause status
CPT/HCPCS: 12002; 36415; 51701; 51798; 70450; 72125; 80053; 81001; 83735; 85025; 87086; 90471; 90715; 99284

== ENCOUNTER 2021-11-25 18:00 | Observation (INO) | payer MEDICARE, SELFPAY ==
--- NOTE | ~2021-11-25 | CT_ITS ---
EXAMINATION: CT CERVICAL SPINE WITHOUT CONTRAST CLINICAL INFORMATION: 81-year-old female status post fall COMPARISON: 07/06/2021 TECHNIQUE: Examination limited due to motion artifact This CT examination was performed using dose optimization techniques as appropriate, variously including the following: *Automated exposure control *Adjustment of mA and/or kV according to patient size (this includes techniques or standardized protocols for targeted exams where dose is matched to indication/reason for exam; i.e. extremities or head) *Use of iterative reconstruction technique DLP: 298.86 mGy-cm FINDINGS: There are mild multilevel degenerative changes with grade 1 anterior listhesis of C3 over C4 and narrowing of C5-C6 and C6-C7 intervertebral disc spaces. There is no evidence of fracture or dislocations. Partially visualized lung apices revealed changes of centrilobular emphysema without nodules Fleischner guidelines were followed. CT/CT cervical spine wo con IMPRESSION: No interval change, mild degenerative changes in cervical spine with grade 1 anterior listhesis of C3 over C4
--- NOTE | ~2021-11-25 | XR_ITS ---
EXAMINATION: XR HIP, RIGHT CLINICAL INFORMATION: Right hip pain COMPARISON: May 2019 TECHNIQUE: Two views of the right hip. 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 Correlate clinically if necessary followed by CT scan
--- NOTE | ~2021-11-25 | CT_ITS ---
EXAMINATION: CT HEAD WITHOUT CONTRAST CLINICAL INFORMATION: Status post fall COMPARISON: 07/06/2021 TECHNIQUE: Contiguous axial imaging was performed from the skull base to vertex without intravenous administration of contrast. This CT examination was performed using dose optimization techniques as appropriate, variously including the following: *Automated exposure control *Adjustment of mA and/or kV according to patient size (this includes techniques or standardized protocols for targeted exams where dose is matched to indication/reason for exam; i.e. extremities or head) *Use of iterative reconstruction technique DLP: 1473 mGy-cm FINDINGS: There is no evidence of acute intracranial hemorrhage or territorial infarction. No abnormal mass effect or midline shift is seen. Mead to white matter differentiation is well preserved. No extra-axial fluid collections are identified. No evidence of fractures The ventricles and sulci are prominent due to global volume loss there are extensive periventricular white matter changes as a sequela of microangiopathy. CT/CT head/brain wo con IMPRESSION: Global atrophy and sequela of microangiopathy
--- NOTE | ~2021-11-25 | CT_ITS ---
EXAMINATION: CT CHEST WITHOUT CONTRAST CLINICAL INFORMATION: Shortness of breath. Cough. COMPARISON: 01/17/2019 TECHNIQUE: Multidetector volumetric CT imaging of the chest was done. Axial MIP volume rendering provided. Sagittal and coronal reformatted images were obtained. This CT examination was performed using dose optimization techniques as appropriate, variously including the following: *Automated exposure control *Adjustment of mA and/or kV according to patient size (this includes techniques or standardized protocols for targeted exams where dose is matched to indication/reason for exam; i.e. extremities or head) *Use of iterative reconstruction technique DLP: 198 mGy-cm FINDINGS: LUNGS: Moderate upper lobe predominant centrilobular emphysema. Mild diffuse bronchial wall thickening. Scattered endobronchial secretions within the lower lobe bronchials and mild interstitial edema. Platelike atelectasis within the lower lungs bilaterally. Stable 4 mm now calcified granuloma within the superior segment left lower lobe, benign. Small right Bochdalek hernia. MEDIASTINUM: Mild cardiomegaly. Coarse mitral annular calcifications. Great vessels normal caliber. No pericardial effusion. Triple vessel coronary calcifications. No mediastinal or hilar lymphadenopathy by size criteria. PLEURA: There is no pleural effusion. No pleural mass or thickening. AXILLA: No lymphadenopathy. UPPER ABDOMEN: Small sliding-type hiatal hernia. OSSEOUS STRUCTURES: Age-indeterminate mild superior plate compression fracture at T5 resulting in 20% height loss. CT/CT chest wo con IMPRESSION: * Moderate emphysema and chronic bronchitis with scattered endobronchial secretions within the lower lobe bronchioles similar to prior. * Mild interstitial edema * Age-indeterminate mild compression fracture at T5 superior endplate, 20%
--- NOTE | ~2021-11-25 | CT_ITS ---
EXAMINATION: CT HIP WITHOUT CONTRAST, RIGHT CLINICAL INFORMATION: Fracture COMPARISON: Radiographs performed 11/25/2021. TECHNIQUE: Multidetector CT imaging of the right hip was performed without the use of intravenous contrast. Coronal and sagittal reformats are reviewed. This CT examination was performed using dose optimization techniques as appropriate, variously including the following: *Automated exposure control *Adjustment of mA and/or kV according to patient size (this includes techniques or standardized protocols for targeted exams where dose is matched to indication/reason for exam; i.e. extremities or head) *Use of iterative reconstruction technique DLP: 260 mGy-cm FINDINGS: There is a nondisplaced cortical avulsion fracture involving the anterior aspect of the greater tuberosity, age indeterminant. Assessment is limited by extensive beam Vargas artifact associated with the arthroplasty. There is, however, no significant soft tissue swelling to suggest acuity. No additional potential fractures. The femoral head prosthesis is concentrically seated within the acetabular cup. Imaged viscera demonstrates diverticulosis without evidence of diverticulitis. No additional abnormalities of significance. CT/CT hip RT wo con IMPRESSION: Possible nondisplaced cortical avulsion fracture involving the anterior greater trochanter, age indeterminant. Lack of soft tissue swelling supports chronicity.
[2021-11-25 18:14] VITALS: BP 179/78; BP 185/81; PULSE 108; PULSE 110; RESP 16; TEMP 36.9; O2SAT 94; O2SAT 96; BMI 15.5
--- NOTE | 2021-11-25 18:19 | ED_ITS ---
HPI - Fall General Chief Complaint: Fall <SALVADOR Lima Last Filed: 11/25/21 21:39> Stated Complaint: fall - right hip pain <SALVADOR Lima Last Filed: 11/25/21 21:39> Time Seen by Provider: 11/25/21 18:09 <SALVADOR Lima Last Filed: 11/25/21 21:39> Source: patient <SALVADOR Lima Last Filed: 11/25/21 21:39> Mode of arrival: EMS <SALVADOR Lima Last Filed: 11/25/21 21:39> Limitations: no limitations <SALVADOR Lima Last Filed: 11/25/21 21:39> History of Present Illness HPI Narrative: 81-year-old female with a past medical history of COPD dependent on 4 liters nasal cannula oxygen, GERD, depression and moderate protein malnutrition presenting to the ED via EMS for a fall and now right hip pain..? Ruba herrera states she was on the toilet, and the door to the bathroom was open, so she reached forward to close the door and fell on her right side. She denies any symptoms prior to the fall such as dizziness, chest pain or shortness of breath or any other symptoms.? She is currently only on aspirin not on any other blood thinners. At this time she denies any dizziness, headaches, neck pain, change in vision, jaw pain, nausea/vomiting, sore throat, cough, chest pain, shortness of breath, dyspnea on exertion, orthopnea, palpitations, back pain, abdominal pain, dysuria, hematuria, abnormal vaginal discharge, rashes, focal weakness or any weakness or recent travel or sick contacts <SALVADOR Lima Last Filed: 11/25/21 21:39> Related Data Home Medications: Home Medications Medication Instructions Recorded Confirmed albuterol sulfate 90 mcg/actuation 2 puff PO Q6H PRN 05/15/20 05/02/21 aerosol inhaler aspirin 81 mg tablet,delayed 81 mg PO DAILY 05/15/20 05/02/21 release docusate sodium 100 mg capsule 1 cap PO DAILY PRN 05/15/20 05/02/21 duloxetine 60 mg capsule,delayed 60 mg PO DAILY 05/15/20 05/02/21 release fluticasone propionate 50 1 - 2 spray INTRANASAL DAILY PRN 05/15/20 05/02/21 mcg/actuation nasal spray,suspension ipratropium bromide 17 2 puff INHALATION TID 05/15/20 05/02/21 mcg/actuation HFA aerosol inhaler (Atrovent HFA) simvastatin 20 mg tablet 20 mg PO DAILY 05/15/20 05/02/21 omeprazole 20 mg capsule,delayed 20 mg PO DAILY@0630 04/13/21 05/02/21 release umeclidinium 62.5 mcg-vilanterol 1 puff INHALATION DAILY 04/13/21 05/02/21 25 mcg/actuation powdr for inhalation (Anoro Ellipta) fluticasone furoate 100 1 puff INHALATION DAILY 05/02/21 05/02/21 mcg/actuation blister powder for inhalation (Arnuity Ellipta) prednisone 10 mg tablet 1 tab PO DAILY 05/02/21 05/02/21 Previous Rx's Medication Instructions Recorded ferrous sulfate 325 mg (65 mg 325 mg PO BID #60 tab 08/04/20 iron) tablet (Iron (ferrous sulfate)) cefuroxime axetil 250 mg tablet 250 mg PO BID 7 Days #14 tab 07/06/21 <SALVADOR Lima Last Filed: 11/25/21 21:39> Allergies/Adverse Reactions: Allergies Allergy/AdvReac Type Severity Reaction Status Date / Time Sulfa (Sulfonamide Allergy Unknown HIVES Verified 04/12/21 22:58 Antibiotics) erythromycin base AdvReac Mild GI UPSET Verified 04/12/21 22:58 [ERYTHROMYCIN BASE] <SALVADOR Lima Last Filed: 11/25/21 21:39> Review of Systems Constitutional: Constitutional: Denies body ache(s), Denies chills, Denies fatigue, Denies fever(s), Denies headache(s), Denies malaise and Denies weakness <SALVADOR Lima Last Filed: 11/25/21 21:39> Eyes: Eyes: Denies diplopia <SALVADOR Lima Last Filed: 11/25/21 21:39> ENT: Denies vertigo, Denies dizziness, Denies headache(s) and Denies throat swelling <SALVADOR Lima Last Filed: 11/25/21 21:39> Cardiovascular: Cardiovascular: Denies chest pain, Denies syncope, Denies leg edema, Denies lightheadedness, Denies Loss of Consciousness, Denies palpitations and Denies dyspnea <SALVADOR Lima - Last Filed: 11/25/21 21:39> Respiratory: Respiratory: Denies chest congestion, Denies cough and Denies dyspnea <SALVADOR Lima Last Filed: 11/25/21 21:39> Gastrointestinal: Gastrointestinal: Denies abdominal pain, Denies hematochezia, Denies constipation, Denies diarrhea and Denies vomiting <SALVADOR Lima Last Filed: 11/25/21 21:39> Musculoskeletal: Musculoskeletal: Reports deformity, Reports arthralgias, Denies numbness and Denies tingling <SALVADOR Lima Last Filed: 11/25/21 21:39> Integumentary/Breasts: Skin/Breast: Denies unusual bruising <SALVADOR Lima Last Filed: 11/25/21 21:39> Neurologic: Denies confusion, Denies vertigo, Denies dizziness, Denies syncope, Denies headache(s), Denies numbness, Denies tingling and Denies weakness <SALVADOR Lima Last Filed: 11/25/21 21:39> Psychiatric: Psychiatric: Denies anxiety, Denies confusion and Denies depres caryn <SALVADOR Lima - Last Filed: 11/25/21 21:39> Endocrine: Endocrine: Denies fatigue and Denies palpitations <SALVADOR Lima Last Filed: 11/25/21 21:39> Allergic/Immunologic: Allergic/Immunologic: Denies throat swelling <SALVADOR Lima Last Filed: 11/25/21 21:39> PMF Past Medical History Medical History: Medical History COPD (chronic obstructive pulmonary disease) COPD (chronic obstructive pulmonary disease) Depression GERD (gastroesophageal reflux disease) IBS (irritable bowel syndrome) Moderate protein malnutrition Respiratory failure with hypoxia <SALVADOR Lima Last Filed: 11/25/21 21:39> Social History Social History: Social History Household Members: None Housing: Condominium Do you presently have visiting nurse or other home services: No Alcohol intake: never Patient Tobacco Use Status: Former Tobacco user Tobacco use type: Cigarette Cigarettes Per Day: 15 Second Hand Smoke Exposure: No Use of substances other than those prescribed or required for medical reasons: No Advance Directives: Yes Advance Directives on File: Yes Advance Directives Date on File: 08/08/20 service: No Current occupational status: retired <SALVADOR Lima - Last Filed: 11/25/21 21:39> Physical Exam Vital Signs: Vital Signs: Last Vital Signs Temp 98.5 F 11/25/21 18:14 Pulse 77 11/26/21 02:49 Resp 19 11/26/21 02:49 BP 155/56 H 11/26/21 02:49 Pulse Ox 97 11/26/21 02:49 Oxygen Flow Rate 4 11/25/21 18:14 BMI result Body Mass Index 15.5 <SALVADOR Lima - Last Filed: 11/25/21 21:39> Vital Signs: Last Vital Signs Temp 98.5 F 11/25/21 18:14 Pulse 77 11/26/21 02:49 Resp 19 11/26/21 02:49 BP 155/56 H 11/26/21 02:49 Pulse Ox 97 11/26/21 02:49 Oxygen Flow Rate 4 11/25/21 18:14 BMI result Body Mass Index 15.5 <Deann Bennett MD - Last Filed: 11/26/21 04:23> Const: General: alert and awake; No confusion <SALVADOR Lima - Last Filed: 11/25/21 21:39> Nutritional Appearance: cachectic <SALVADOR Lima - Last Filed: 11/25/21 21:39> Orientation/consciousness: No confusion <SALVADOR Lima - Last Filed: 11/25/21 21:39> Limitations: ambulation with walker <SALVADOR Lima - Last Filed: 11/25/21 21:39> HEENT: Head: Yes normal to inspection, Yes normocephalic and Yes atraumatic <SALVADOR Lima - Last Filed: 11/25/21 21:39> Ears: hearing grossly normal bilaterally <Sylvia Jacobo [facility] Last Filed: 11/25/21 21:39> General nose exam: Normal external nose present <Sylvia Centeno [facility] Last Filed: 11/25/21 21:39> Face and sinus: Yes normal facial exam and Yes sinuses nontender <Sylvia Centeno [facility] Last Filed: 11/25/21 21:39> Mouth: Normal oral and palatal mucosa present <Sylvia Centeno [facility] Last Filed: 11/25/21 21:39> Throat: Yes posterior oropharynx normal <Sylvia Centeno [facility] Last Filed: 11/25/21 21:39> Eyes: Conjunctivae: conjunctivae normal <Sylvia Centeno [facility] Last Filed: 11/25/21 21:39> Pupils: Equal, round and reactive pupils present <Sylvia Centeno [facility] Last Filed: 11/25/21 21:39> EOM: EOMs intact bilaterally <Sylvia Centeno [facility] Last Filed: 11/25/21 21:39> Neck: Neck: Yes normal visual inspection, Yes full ROM, Yes no lymphadenopathy, Yes trachea midline and Yes supple <Sylvia Centeno [facility] Last Filed: 11/25/21 21:39> Resp: Effort & Inspection: normal respiratory effort and able to speak in complete sentences <Sylvia Centeno [facility] Last Filed: 11/25/21 21:39> Auscultation: clear to auscultation bilaterally, no crackles, no rales, no rhonchi and no wheezes <Sylvia Centeno [facility] Last Filed: 11/25/21 21:39> Cardio: Rate: regular rate <Sylvia Centeno [facility] Last Filed: 11/25/21 21:39> Rhythm: regular rhythm <Sylvia Centeno [facility] Last Filed: 11/25/21 21:39> Heart sounds: S1 normal heart sound present and S2 normal heart sound present <Sylvia Centeno [facility] Last Filed: 11/25/21 21:39> GI: Inspection: Yes normal to inspection <Sylvia Centeno [facility] Last Filed: 11/25/21 21:39> Palpation (GI): Soft to palpation, nontender, no guarding and not rigid <Sylvia Centeno [facility] Last Filed: 11/25/21 21:39> Percussion: Yes normal to percussion <Sylvia Centeno [facility] Last Filed: 11/25/21 21:39> Auscultation: normal bowel sounds <Sylvia Centeno [facility] Last Filed: 11/25/21 21:39> Back/Spine/Pelvis: Cervical Spine: normal cervical lordosis, cervical ROM normal and No Cervical spine tenderness <Sylvia Centeno [facility] Last Filed: 11/25/21 21:39> Skin: General skin exam: no rashes or lesions noted and no ecchymosis <Sylvia Centeno [facility] Last Filed: 11/25/21 21:39> Neuro: General: No confusion <Sylvia Centeno [facility] Last Filed: 11/25/21 21:39> Cranial nerves: Yes Equal, round and reactive pupils present <Sylvia Centeno [facility] Last Filed: 11/25/21 21:39> Extrem: General: Yes full ROM <Sylvia Centeno [facility] Last Filed: 11/25/21 21:39> Right lower extremity: normal capillary refill and hip/thigh (Right leg shortened and internally rotated) Details: tenderness and abnormal ROM (Pain with any movement); Negative for no ecchymosis, no crepitus, no deformity and no unusual warmth; No no cyanosis and no edema <Sylvia Centeno [facility] Last Filed: 11/25/21 21:39> Psych: Appearance: grossly normal <SALVADOR Lima Last Filed: 11/25/21 21:39> Affect: normal affect <Sylvia Centeno [facility] Last Filed: 11/25/21 21:39> Attitude: cooperative <Sylvia Centeno [facility] Last Filed: 11/25/21 21:39> Thought process: Normal thought process present <SALVADOR Lima Last Filed: 11/25/21 21:39> Course Course Course Narrative: 81-year-old female presents for right hip pain after mechanical fall that occurred at her nursing facility. On exam, patient is mildly tachycardic in the 100s, states her pain is a 10/10, is tender over right lateral hip. Right leg is foreshortened and internally rotated. <SALVADOR Lima - Last Filed: 11/25/21 21:39> Reevaluation(s) Reevaluation #1: Patient has leukocytosis of 13, H&H is 10.1 in 33.1 which is her baseline. Troponin is elevated at 34.2. COVID negative. 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 Question of avulsion of greater trochanter without displacement Discussed with Juanita Gil, orthopedics SALVADOR, who counseled walker, weight- bearing as tolerated, follow up with orthopedic surgeon in 2 weeks for repeat x- ray. She states no surgical intervention is necessary at this time. FINDINGS: Patient is status post total hip replacement with well positioned prosthesis there is questionable mural avulsion of greater trochanter visualized on oblique view only without displacement? XR/XR hip RT w [id number] IMPRESSION: Questionable avulsion fracture without displacement of fragments of greater trochanter. Correlate clinically if necessary followed by CT scan <SALVADOR Lima - Last Filed: 11/25/21 21:39> Reevaluation #2: Spoke to daughter Beti, who is patient's [id number] and healthcare proxy, and needs to be informed of decisions regarding patient's care. Her number is [phone] <SALVADOR Lima - Last Filed: 11/25/21 21:39> Reevaluation #3: Signed pt out to Dr Bennett, who requested CT scan of hip Urine still pending, repeat troponin pending <SALVADOR Lima - Last Filed: 11/25/21 21:39> Additional Reevaluation(s): 2235: I suspect infection, antibiotics given as well as 500 mls IV fluids. Urinalysis is negative and trop is flat. Review of all investigations otherwise negative other than avulsion fracture and patient despite being provided with adequate pain control is unable to ambulate. Orthopedic Service was updated and I discussed this case with the inpatient hospitalist who accepts admission. <Deann Bennett MD - Last Filed: 11/26/21 04:23> MDM - Fall Medical Records Medical records narrative: Sinus tach at a rate of 102, NV interval 184, QRS 68, QTC 448, no ST depression or elevation, no T-wave abnormalities <SALVADOR Lima - Last Filed: 11/25/21 21:39> Lab Data Result diagrams: : 11/25/21 19:27 11/25/21 19:27 <SALVADOR Lima - Last Filed: 11/25/21 21:39> Labs: Lab Results 11/25/21 11/25/21 11/25/21 Range/Units 19:27 19:27 19:27 WBC 13.0 H (4.8-10.8) X10*3/uL RBC 3.52 L (4.20-5.50) X10*6/uL Hgb 10.1 L (12.0-16.0) g/dl Hct 33.1 L (37.0-47.0) % MCV 94.0 (80.0-98.0) fL MCH 28.7 (27.0-33.0) pg MCHC 30.5 L (31.0-35.0) g/dl RDW 14.6 (11.0-16.0) % Plt Count 340 (160-400) X10*3/uL MPV 10.3 (9.4-12.3) fL Immature Gran % (Auto) 0.4 (0.0-0.4) % Neut % (Auto) 77.8 H (45-73) % Lymph % (Auto) 10.4 L (20-40) % [place] % (Auto) 8.3 (2-11) % Eos % (Auto) 2.7 (0-4) % Baso % (Auto) 0.4 (0-2) % Lymph # (Auto) 1.4 (1.2-4.9) X10*3/uL [place] # (Auto) 1.1 (0.1-1.2) X10*3/uL Eos # (Auto) 0.4 (0.0-0.4) X10*3/uL Baso # (Auto) 0.1 (0.0-0.2) X10*3/uL Abs Immat Gran (auto) 0.05 H (0.00-0.03) X10*3/uL Absolute Neuts (auto) 10.1 H (2.0-8.3) x10*3/uL Absolute Nucleated RBC 0.000 (0.0-0.012) X10*3/uL Nucleated RBC % (auto) 0.0 (0.0-0.2) /100WBC VBG pH (7.32-7.43) VBG pCO2 mmHg VBG pO2 mmHg VBG HCO3 (22-26) mmol/L VBG O2 Saturation % VBG Base Excess mmol/L Sodium 144 (135-145) mmol/L Potassium 4.6 (3.3-5.1) mmol/L Chloride 105 (96-108) mmol/L Carbon Dioxide 29 (22-29) mmol/L Anion Gap 15 (12-20) BUN 26 H (9-16) mg/dL Creatinine 0.90 (0.5-1.4) mg/dL Estim Creat Clear Calc 36.4 Estimated GFR > 60 Random Glucose 103 (60-115) mg/dL Calcium 9.6 (8.4-10.2) mg/dL Total Bilirubin 0.3 (0.0-1.0) mg/dL AST 18 (5-31) U/L ALT 18 (0-31) U/L Alkaline Phosphatase 65 (39-117) U/L Troponin I High Sens 34.2 H (<3.5-17.0) ng/L C-Reactive Protein 0.27 (< or = 0.50) mg/dL B-Natriuretic Peptide 259 H (<100) pg/mL Total Protein 6.8 (6.5-8.0) g/dL Albumin 3.6 (3.5-5.0) g/dL Urine Color Urine Appearance Urine pH (5.0-8.0) Ur Specific [place] (1.005-1.025) Urine Protein (NEG-TRACE) MG/DL Urine Glucose (UA) (NEG) MG/DL Urine Ketones (NEG) MG/DL Urine Blood (NEG) Urine Nitrite (NEG) Ur Leukocyte Esterase (NEG) Urine RBC (0) /HPF Urine WBC (0-4) /HPF Ur Squamous Epith Cells /LPF Urine Bacteria /LPF Urine Mucus /LPF COVID-19 ([facility]) (Negative) COVID-19 Clin Com 11/25/21 11/25/21 11/25/21 Range/Units 19:27 21:20 21:53 WBC (4.8-10.8) X10*3/uL RBC (4.20-5.50) X10*6/uL Hgb (12.0-16.0) g/dl Hct (37.0-47.0) % MCV (80.0-98.0) fL MCH (27.0-33.0) pg MCHC (31.0-35.0) g/dl RDW (11.0-16.0) % Plt Count (160-400) X10*3/uL MPV (9.4-12.3) fL Immature Gran % (Auto) (0.0-0.4) % Neut % (Auto) (45-73) % Lymph % (Auto) (20-40) % [place] % (Auto) (2-11) % Eos % (Auto) (0-4) % Baso % (Auto) (0-2) % Lymph # (Auto) (1.2-4.9) X10*3/uL [place] # (Auto) (0.1-1.2) X10*3/uL Eos # (Auto) (0.0-0.4) X10*3/uL Baso # (Auto) (0.0-0.2) X10*3/uL Abs Immat Gran (auto) (0.00-0.03) X10*3/uL Absolute Neuts (auto) (2.0-8.3) x10*3/uL Absolute Nucleated RBC (0.0-0.012) X10*3/uL Nucleated RBC % (auto) (0.0-0.2) /100WBC VBG pH (7.32-7.43) VBG pCO2 mmHg VBG pO2 mmHg VBG HCO3 (22-26) mmol/L VBG O2 Saturation % VBG Base Excess mmol/L Sodium (135-145) mmol/L Potassium (3.3-5.1) mmol/L Chloride (96-108) mmol/L Carbon Dioxide (22-29) mmol/L Anion Gap (12-20) BUN (9-16) mg/dL Creatinine (0.5-1.4) mg/dL Estim Creat Clear Calc Estimated GFR Random Glucose (60-115) mg/dL Calcium (8.4-10.2) mg/dL Total Bilirubin (0.0-1.0) mg/dL AST (5-31) U/L ALT (0-31) U/L Alkaline Phosphatase (39-117) U/L Troponin I High Sens 33.3 H (<3.5-17.0) ng/L C-Reactive Protein (< or = 0.50) mg/dL B-Natriuretic Peptide (<100) pg/mL Total Protein (6.5-8.0) g/dL Albumin (3.5-5.0) g/dL Urine Color YELLOW Urine Appearance CLEAR Urine pH 6.0 (5.0-8.0) Ur Specific [place] 1.025 (1.005-1.025) Urine Protein 1+ H (NEG-TRACE) MG/DL Urine Glucose (UA) NEG (NEG) MG/DL Urine Ketones NEG (NEG) MG/DL Urine Blood NEG (NEG) Urine Nitrite NEG (NEG) Ur Leukocyte Esterase NEG (NEG) Urine RBC 1-4 (0) /HPF Urine WBC 1-4 (0-4) /HPF Ur Squamous Epith Cells 3+ /LPF Urine Bacteria NONE /LPF Urine Mucus 3+ /LPF COVID-19 ([facility]) Negative (Negative) COVID-19 Clin Com See Note 11/25/21 11/26/21 Range/Units 22:48 03:49 WBC (4.8-10.8) X10*3/uL RBC (4.20-5.50) X10*6/uL Hgb (12.0-16.0) g/dl Hct (37.0-47.0) % MCV (80.0-98.0) fL MCH (27.0-33.0) pg MCHC (31.0-35.0) g/dl RDW (11.0-16.0) % Plt Count (160-400) X10*3/uL MPV (9.4-12.3) fL Immature Gran % (Auto) (0.0-0.4) % Neut % (Auto) (45-73) % Lymph % (Auto) (20-40) % [place] % (Auto) (2-11) % Eos % (Auto) (0-4) % Baso % (Auto) (0-2) % Lymph # (Auto) (1.2-4.9) X10*3/uL [place] # (Auto) (0.1-1.2) X10*3/uL Eos # (Auto) (0.0-0.4) X10*3/uL Baso # (Auto) (0.0-0.2) X10*3/uL Abs Immat Gran (auto) (0.00-0.03) X10*3/uL Absolute Neuts (auto) (2.0-8.3) x10*3/uL Absolute Nucleated RBC (0.0-0.012) X10*3/uL Nucleated RBC % (auto) (0.0-0.2) /100WBC VBG pH 7.45 H (7.32-7.43) VBG pCO2 39 mmHg VBG pO2 83 mmHg VBG HCO3 28 H (22-26) mmol/L VBG O2 Saturation 97.0 % VBG Base Excess 4.1 mmol/L Sodium (135-145) mmol/L Potassium (3.3-5.1) mmol/L Chloride (96-108) mmol/L Carbon Dioxide (22-29) mmol/L Anion Gap (12-20) BUN (9-16) mg/dL Creatinine (0.5-1.4) mg/dL Estim Creat Clear Calc Estimated GFR Random Glucose (60-115) mg/dL Calcium (8.4-10.2) mg/dL Total Bilirubin (0.0-1.0) mg/dL AST (5-31) U/L ALT (0-31) U/L Alkaline Phosphatase (39-117) U/L Troponin I High Sens (<3.5-17.0) ng/L C-Reactive Protein (< or = 0.50) mg/dL B-Natriuretic Peptide (<100) pg/mL Total Protein (6.5-8.0) g/dL Albumin (3.5-5.0) g/dL Urine Color Urine Appearance Urine pH (5.0-8.0) Ur Specific [place] (1.005-1.025) Urine Protein (NEG-TRACE) MG/DL Urine Glucose (UA) (NEG) MG/DL Urine Ketones (NEG) MG/DL Urine Blood (NEG) Urine Nitrite (NEG) Ur Leukocyte Esterase (NEG) Urine RBC (0) /HPF Urine WBC (0-4) /HPF Ur Squamous Epith Cells /LPF Urine Bacteria /LPF Urine Mucus /LPF COVID-19 ([facility]) Negative (Negative) COVID-19 Clin Com See Note <SALVADOR Lima - Last Filed: 11/25/21 21:39> Lab Results 11/25/21 11/25/21 11/25/21 Range/Units 19:27 19:27 19:27 WBC 13.0 H (4.8-10.8) X10*3/uL RBC 3.52 L (4.20-5.50) X10*6/uL Hgb 10.1 L (12.0-16.0) g/dl Hct 33.1 L (37.0-47.0) % MCV 94.0 (80.0-98.0) fL MCH 28.7 (27.0-33.0) pg MCHC 30.5 L (31.0-35.0) g/dl RDW 14.6 (11.0-16.0) % Plt Count 340 (160-400) X10*3/uL MPV 10.3 (9.4-12.3) fL Immature Gran % (Auto) 0.4 (0.0-0.4) % Neut % (Auto) 77.8 H (45-73) % Lymph % (Auto) 10.4 L (20-40) % [place] % (Auto) 8.3 (2-11) % Eos % (Auto) 2.7 (0-4) % Baso % (Auto) 0.4 (0-2) % Lymph # (Auto) 1.4 (1.2-4.9) X10*3/uL [place] # (Auto) 1.1 (0.1-1.2) X10*3/uL Eos # (Auto) 0.4 (0.0-0.4) X10*3/uL Baso # (Auto) 0.1 (0.0-0.2) X10*3/uL Abs Immat Gran (auto) 0.05 H (0.00-0.03) X10*3/uL Absolute Neuts (auto) 10.1 H (2.0-8.3) x10*3/uL Absolute Nucleated RBC 0.000 (0.0-0.012) X10*3/uL Nucleated RBC % (auto) 0.0 (0.0-0.2) /100WBC VBG pH (7.32-7.43) VBG pCO2 mmHg VBG pO2 mmHg VBG HCO3 (22-26) mmol/L VBG O2 Saturation % VBG Base Excess mmol/L Sodium 144 (135-145) mmol/L Potassium 4.6 (3.3-5.1) mmol/L Chloride 105 (96-108) mmol/L Carbon Dioxide 29 (22-29) mmol/L Anion Gap 15 (12-20) BUN 26 H (9-16) mg/dL Creatinine 0.90 (0.5-1.4) mg/dL Estim Creat Clear Calc 36.4 Estimated GFR > 60 Random Glucose 103 (60-115) mg/dL Calcium 9.6 (8.4-10.2) mg/dL Total Bilirubin 0.3 (0.0-1.0) mg/dL AST 18 (5-31) U/L ALT 18 (0-31) U/L Alkaline Phosphatase 65 (39-117) U/L Troponin I High Sens 34.2 H (<3.5-17.0) ng/L C-Reactive Protein 0.27 (< or = 0.50) mg/dL B-Natriuretic Peptide 259 H (<100) pg/mL Total Protein 6.8 (6.5-8.0) g/dL Albumin 3.6 (3.5-5.0) g/dL Urine Color Urine Appearance Urine pH (5.0-8.0) Ur Specific [place] (1.005-1.025) Urine Protein (NEG-TRACE) MG/DL Urine Glucose (UA) (NEG) MG/DL Urine Ketones (NEG) MG/DL Urine Blood (NEG) Urine Nitrite (NEG) Ur Leukocyte Esterase (NEG) Urine RBC (0) /HPF Urine WBC (0-4) /HPF Ur Squamous Epith Cells /LPF Urine Bacteria /LPF Urine Mucus /LPF COVID-19 ([facility]) (Negative) COVID-19 Clin Com 11/25/21 11/25/21 11/25/21 Range/Units 19:27 21:20 21:53 WBC (4.8-10.8) X10*3/uL RBC (4.20-5.50) X10*6/uL Hgb (12.0-16.0) g/dl Hct (37.0-47.0) % MCV (80.0-98.0) fL MCH (27.0-33.0) pg MCHC (31.0-35.0) g/dl RDW (11.0-16.0) % Plt Count (160-400) X10*3/uL MPV (9.4-12.3) fL Immature Gran % (Auto) (0.0-0.4) % Neut % (Auto) (45-73) % Lymph % (Auto) (20-40) % [place] % (Auto) (2-11) % Eos % (Auto) (0-4) % Baso % (Auto) (0-2) % Lymph # (Auto) (1.2-4.9) X10*3/uL [place] # (Auto) (0.1-1.2) X10*3/uL Eos # (Auto) (0.0-0.4) X10*3/uL Baso # (Auto) (0.0-0.2) X10*3/uL Abs Immat Gran (auto) (0.00-0.03) X10*3/uL Absolute Neuts (auto) (2.0-8.3) x10*3/uL Absolute Nucleated RBC (0.0-0.012) X10*3/uL Nucleated RBC % (auto) (0.0-0.2) /100WBC VBG pH (7.32-7.43) VBG pCO2 mmHg VBG pO2 mmHg VBG HCO3 (22-26) mmol/L VBG O2 Saturation % VBG Base Excess mmol/L Sodium (135-145) mmol/L Potassium (3.3-5.1) mmol/L Chloride (96-108) mmol/L Carbon Dioxide (22-29) mmol/L Anion Gap (12-20) BUN (9-16) mg/dL Creatinine (0.5-1.4) mg/dL Estim Creat Clear Calc Estimated GFR Random Glucose (60-115) mg/dL Calcium (8.4-10.2) mg/dL Total Bilirubin (0.0-1.0) mg/dL AST (5-31) U/L ALT (0-31) U/L Alkaline Phosphatase (39-117) U/L Troponin I High Sens 33.3 H (<3.5-17.0) ng/L C-Reactive Protein (< or = 0.50) mg/dL B-Natriuretic Peptide (<100) pg/mL Total Protein (6.5-8.0) g/dL Albumin (3.5-5.0) g/dL Urine Color YELLOW Urine Appearance CLEAR Urine pH 6.0 (5.0-8.0) Ur Specific [place] 1.025 (1.005-1.025) Urine Protein 1+ H (NEG-TRACE) MG/DL Urine Glucose (UA) NEG (NEG) MG/DL Urine Ketones NEG (NEG) MG/DL Urine Blood NEG (NEG) Urine Nitrite NEG (NEG) Ur Leukocyte Esterase NEG (NEG) Urine RBC 1-4 (0) /HPF Urine WBC 1-4 (0-4) /HPF Ur Squamous Epith Cells 3+ /LPF Urine Bacteria NONE /LPF Urine Mucus 3+ /LPF COVID-19 ([facility]) Negative (Negative) COVID-19 Clin Com See Note 11/25/21 11/26/21 Range/Units 22:48 03:49 WBC (4.8-10.8) X10*3/uL RBC (4.20-5.50) X10*6/uL Hgb (12.0-16.0) g/dl Hct (37.0-47.0) % MCV (80.0-98.0) fL MCH (27.0-33.0) pg MCHC (31.0-35.0) g/dl RDW (11.0-16.0) % Plt Count (160-400) X10*3/uL MPV (9.4-12.3) fL Immature Gran % (Auto) (0.0-0.4) % Neut % (Auto) (45-73) % Lymph % (Auto) (20-40) % [place] % (Auto) (2-11) % Eos % (Auto) (0-4) % Baso % (Auto) (0-2) % Lymph # (Auto) (1.2-4.9) X10*3/uL [place] # (Auto) (0.1-1.2) X10*3/uL Eos # (Auto) (0.0-0.4) X10*3/uL Baso # (Auto) (0.0-0.2) X10*3/uL Abs Immat Gran (auto) (0.00-0.03) X10*3/uL Absolute Neuts (auto) (2.0-8.3) x10*3/uL Absolute Nucleated RBC (0.0-0.012) X10*3/uL Nucleated RBC % (auto) (0.0-0.2) /100WBC VBG pH 7.45 H (7.32-7.43) VBG pCO2 39 mmHg VBG pO2 83 mmHg VBG HCO3 28 H (22-26) mmol/L VBG O2 Saturation 97.0 % VBG Base Excess 4.1 mmol/L Sodium (135-145) mmol/L Potassium (3.3-5.1) mmol/L Chloride (96-108) mmol/L Carbon Dioxide (22-29) mmol/L Anion Gap (12-20) BUN (9-16) mg/dL Creatinine (0.5-1.4) mg/dL Estim Creat Clear Calc Estimated GFR Random Glucose (60-115) mg/dL Calcium (8.4-10.2) mg/dL Total Bilirubin (0.0-1.0) mg/dL AST (5-31) U/L ALT (0-31) U/L Alkaline Phosphatase (39-117) U/L Troponin I High Sens (<3.5-17.0) ng/L C-Reactive Protein (< or = 0.50) mg/dL B-Natriuretic Peptide (<100) pg/mL Total Protein (6.5-8.0) g/dL Albumin (3.5-5.0) g/dL Urine Color Urine Appearance Urine pH (5.0-8.0) Ur Specific [place] (1.005-1.025) Urine Protein (NEG-TRACE) MG/DL Urine Glucose (UA) (NEG) MG/DL Urine Ketones (NEG) MG/DL Urine Blood (NEG) Urine Nitrite (NEG) Ur Leukocyte Esterase (NEG) Urine RBC (0) /HPF Urine WBC (0-4) /HPF Ur Squamous Epith Cells /LPF Urine Bacteria /LPF Urine Mucus /LPF COVID-19 ([facility]) Negative (Negative) COVID-19 Clin Com See Note <Deann Bennett MD - Last Filed: 11/26/21 04:23> Discharge Plan Discharge Clinical Impression: Avulsion fracture of right hip, Intractable pain, COPD (chronic obstructive pulmonary disease) <SALVADOR Lima - Last Filed: 11/25/21 21:39> Patient Disposition: Admitted As Inpatient <SALVADOR Lima - Last Filed: 11/25/21 21:39>
--- NOTE | 2021-11-25 18:33 | ECG_ITS ---
Test Reason : FALL Blood Pressure : / mmHG Vent. Rate : 102 BPM Atrial Rate : 102 BPM P-R Int : 184 ms QRS Dur : 068 ms QT Int : 344 ms P-R-T Axes : 086 044 086 degrees QTc Int : 448 ms Sinus tachycardia Otherwise normal ECG When compared with ECG of 12-APR-2021 23:50, No significant change was found Referred By: Sylvia Centeno Electronically Signed By:Ryan Perkins
[2021-11-25 19:36] LABS: MANUAL DIFF FLAG NO
[2021-11-25 19:38] LABS: Basophils Absolute Auto 0.1 X10*3/uL (0.0-0.2); Basophils Percent Auto 0.4 % (0-2); Eosinophils Absolute Auto 0.4 X10*3/uL (0.0-0.4); Eosinophils Percent Auto 2.7 % (0-4); Hematocrit 33.1 % (37.0-47.0); Hemoglobin 10.1 g/dl (12.0-16.0); Imm Gran Abs Auto 0.05 X10*3/uL (0.00-0.03); Imm Gran Pct Auto 0.4 % (0.0-0.4); Lymphocytes Absolute Auto 1.4 X10*3/uL (1.2-4.9); Lymphocytes Percent Auto 10.4 % (20-40); Mean Corpuscular HGB Conc 30.5 g/dl (31.0-35.0); Mean Corpuscular Hemoglobin 28.7 pg (27.0-33.0); Mean Platelet Volume 10.3 fL (9.4-12.3); Monocytes Absolute Auto 1.1 X10*3/uL (0.1-1.2); Monocytes Percent Auto 8.3 % (2-11); Neutrophils Absolute Auto 10.1 x10*3/uL (2.0-8.3); Neutrophils Percent Auto 77.8 % (45-73); Platelet Count 340 X10*3/uL (160-400); Red Blood Count 3.52 X10*6/uL (4.20-5.50); Red Cell Distribution Width 14.6 % (11.0-16.0)
[2021-11-25 19:52] LABS: COVID-19 Test Negative (Negative)
[2021-11-25 19:53] LABS: Alanine Aminotransferase 18 U/L (0-31); Albumin Level 3.6 g/dL (3.5-5.0); Alkaline Phosphatase 65 U/L (39-117); Anion Gap 15 (12-20); Aspartate Amino Transferase 18 U/L (5-31); Bilirubin Total 0.3 mg/dL (0.0-1.0); Blood Urea Nitrogen 26 mg/dL (9-16); Calcium 9.6 mg/dL (8.4-10.2); Carbon Dioxide 29 mmol/L (22-29); Chloride 105 mmol/L (96-108); Creatinine Clr Calc Pharmacy 36.4; Estimated Glomerular Filt Rate > 60; Glucose Random 103 mg/dL (60-115); Potassium 4.6 mmol/L (3.3-5.1); Sodium 144 mmol/L (135-145); Total Protein 6.8 g/dL (6.5-8.0)
[2021-11-25 19:57] LABS: Troponin-I High Sensitivity 34.2 ng/L (<3.5-17.0)
[2021-11-25 20:34] VITALS: BP 170/70; PULSE 102; RESP 29; O2SAT 91
[2021-11-25] MEDS: Acetaminophen 325 MG TABLET 975 MG PO (20:59)
[2021-11-25 21:45] LABS: Troponin-I High Sensitivity 33.3 ng/L (<3.5-17.0)
[2021-11-25] MEDS: Ketorolac Tromethamine 15 MG/ML VIAL IVPUSH (21:45)
[2021-11-25 22:02] LABS: Appearance Urine CLEAR; Color Urine YELLOW; Glucose Urine UA NEG (NEG); Leukocyte Esterase Urine NEG (NEG); Nitrite Urine NEG (NEG); Specific Gravity - Urine 1.025 (1.005-1.025); UACC Culture Trigger NO; Urine Blood NEG (NEG); Urine Ketones NEG (NEG); Urine Protein 1+ MG/DL (NEG-TRACE)
[2021-11-25 22:29] LABS: Mucus Urine 3+ /LPF; Squamous Epithelial Cell Urine 3+ /LPF
[2021-11-25 22:38] VITALS: BP 144/67; PULSE 93; RESP 18; O2SAT 97
[2021-11-25] MEDS: Piperacillin Sodium/Tazobactam 3.375 GM in 0.9 % Sodium Chloride 50 ML IV (22:51)
[2021-11-25 22:52] VITALS: PULSE 96; RESP 15; O2SAT 95
[2021-11-25 22:54] LABS: Venous Blood Gas Refer to POC result
[2021-11-25] MEDS: 0.9 % Sodium Chloride 500 ML 999 ML IV (22:55)
[2021-11-25 22:56] LABS: VBG Base Excess 4.1 mmol/L; VBG HCO3 28 mmol/L (22-26); VBG pCO2 39 mmHg; VBG pH 7.45 (7.32-7.43); VBG pO2 83 mmHg
[2021-11-25 22:58] LABS: B Type Natriuretic Peptide 259 pg/mL (<100)
[2021-11-26 01:06] LABS: C Reactive Protein 0.27 mg/dL (< or = 0.50)
[2021-11-26 02:49] VITALS: BP 155/56; PULSE 77; RESP 19; O2SAT 97
[2021-11-26] MEDS: Ketorolac Tromethamine 30 MG/ML VIAL 15 MG IVPUSH (02:59)
--- NOTE | 2021-11-26 03:29 | PC.NURSE ---
Tried to encourage pt to ambulate with walker, but pt refused d/t pain in right hip and SOB. Dr. Bennett informed.
[2021-11-26] MEDS: HYDROmorphone HCl 0.5 MG/0.5 ML SYRINGE 0.25 MG IVPUSH (03:51)
[2021-11-26 04:11] LABS: COVID-19 Test Negative (Negative); IDNOW Serial# 16C4AD1C
--- NOTE | 2021-11-26 04:21 | PC.NURSE ---
Kristel Torres tried to ambulate pt with walker, but pt was unable to bear weight or make effective ambulation at this time. Dr. Bennett plans to admit pt.
[2021-11-26 05:13] VITALS: BP 135/52; PULSE 73; RESP 20; TEMP 36.6; O2SAT 97
--- NOTE | 2021-11-26 06:15 | P.HPHOSP_ITS ---
History of Present Illness Date of Service: 11/26/21 Chief Complaint: Fall 81-year-old female with a past medical history of COPD on home oxygen, moderate protein calorie malnutrition, irritable bowel syndrome, GERD, anxiety, depression, dementia presented from the [facility] with a chief complaint of fall. Patient reportedly was walking to the bathroom with the help of the walker of, slipped and fell on her right side; initially denied any complaints but later complained of the right hip pain; subsequently sent to the hospital for further evaluation. Denies any head strike or loss of consciousness. Patient denied any chest pain palpitations lightheadedness or dizziness. Patient denies any abdominal discomfort, urinary complaints. Review of all other systems is negative except mentioned above ER course: Per ER team patient had a CT scan done which showed avulsion fracture of the right hip; orthopedics was notified who assisted weight-bearing as tolerated and orthopedics clinic follow-up. Patient was not able to ambulate and is in significant pain. Admitted to the hospital for pain control/PT OT. [facility] Medical History COPD (chronic obstructive pulmonary disease) COPD (chronic obstructive pulmonary disease) Depression GERD (gastroesophageal reflux disease) IBS (irritable bowel syndrome) Moderate protein malnutrition Respiratory failure with hypoxia Pertinent family history: Patient unable to provide information Social History Household Members: None Housing: Condominium Do you presently have visiting nurse or other home services: No Alcohol intake: never Patient Tobacco Use Status: Former Tobacco user Tobacco use type: Cigarette Cigarettes Per Day: 15 Second Hand Smoke Exposure: No Use of substances other than those prescribed or required for medical reasons: No Advance Directives: Yes Advance Directives on File: Yes Advance Directives Date on File: 08/08/20 service: No Current occupational status: retired Meds Allergies Allergy/AdvReac Type Severity Reaction Status Date / Time Sulfa (Sulfonamide Allergy Unknown HIVES Verified 04/12/21 22:58 Antibiotics) erythromycin base AdvReac Mild GI UPSET Verified 04/12/21 22:58 [ERYTHROMYCIN BASE] Home Medications Medication Instructions Recorded Confirmed Last Taken Type albuterol sulfate 90 mcg/actuation 2 puff PO Q6H PRN 05/15/20 05/02/21 Unknown History aerosol inhaler aspirin 81 mg tablet,delayed 81 mg PO DAILY 05/15/20 05/02/21 05/02/21 History release docusate sodium 100 mg capsule 1 cap PO DAILY PRN 05/15/20 05/02/21 Unknown History duloxetine 60 mg capsule,delayed 60 mg PO DAILY 05/15/20 05/02/21 05/02/21 History release fluticasone propionate 50 1 - 2 spray INTRANASAL DAILY PRN 05/15/20 05/02/21 07/31/20 History mcg/actuation nasal spray,suspension ipratropium bromide 17 2 puff INHALATION TID 05/15/20 05/02/21 07/31/20 History mcg/actuation HFA aerosol inhaler (Atrovent HFA) simvastatin 20 mg tablet 20 mg PO DAILY 05/15/20 05/02/21 05/02/21 History omeprazole 20 mg capsule,delayed 20 mg PO DAILY@0630 04/13/21 05/02/21 05/02/21 History release umeclidinium 62.5 mcg-vilanterol 1 puff INHALATION DAILY 04/13/21 05/02/21 05/02/21 History 25 mcg/actuation powdr for inhalation (Anoro Ellipta) fluticasone furoate 100 1 puff INHALATION DAILY 05/02/21 05/02/21 05/02/21 History mcg/actuation blister powder for inhalation (Arnuity Ellipta) prednisone 10 mg tablet 1 tab PO DAILY 05/02/21 05/02/21 Unknown History Physical Exam Vital Signs and Narrative: Vital Signs: Last Vital Signs Temp 97.9 F 11/26/21 05:13 Pulse 73 11/26/21 05:13 Resp 20 11/26/21 05:13 BP 135/52 L 11/26/21 05:13 Pulse Ox 97 11/26/21 05:13 Oxygen Flow Rate 4 11/25/21 18:14 BMI result Body Mass Index 15.5 Gen: Appears be in no acute distress HEENT: NCAT, Moist mucosa. Pulmonary: Vesicular breath sounds, fair air entry CVS: Normal S1-S2 Abdomen: BS+, Soft, Nontender Extremities: Warm well perfused Neuro: Alert and awake. Grossly nonfocal. Results Labs CBC and Chem 7: 11/25/21 19:27 04/16/22 19:27 Labs: Laboratory Results - last 24 hr 11/25/21 11/25/21 11/25/21 19:27 19:27 19:27 MCV 94.0 MCH 28.7 MCHC 30.5 L RDW 14.6 Plt Count 340 MPV 10.3 Immature Gran % (Auto) 0.4 Neut % (Auto) 77.8 H Lymph % (Auto) 10.4 L [place] % (Auto) 8.3 Eos % (Auto) 2.7 Baso % (Auto) 0.4 Lymph # (Auto) 1.4 [place] # (Auto) 1.1 Eos # (Auto) 0.4 Baso # (Auto) 0.1 Abs Immat Gran (auto) 0.05 H Absolute Neuts (auto) 10.1 H Absolute Nucleated RBC 0.000 Nucleated RBC % (auto) 0.0 VBG pH VBG pCO2 VBG pO2 VBG HCO3 VBG O2 Saturation VBG Base Excess Anion Gap 15 Estim Creat Clear Calc 36.4 Estimated GFR > 60 Random Glucose 103 Calcium 9.6 Total Bilirubin 0.3 AST 18 ALT 18 Alkaline Phosphatase 65 Troponin I High Sens 34.2 H C-Reactive Protein 0.27 B-Natriuretic Peptide 259 H Total Protein 6.8 Albumin 3.6 Urine Color Urine Appearance Urine pH Ur Specific [place] Urine Protein Urine Glucose (UA) Urine Ketones Urine Blood Urine Nitrite Ur Leukocyte Esterase Urine RBC Urine WBC Ur Squamous Epith Cells Urine Bacteria Urine Mucus COVID-19 ([facility]) COVID-19 Clin Com 11/25/21 11/25/21 11/25/21 19:27 21:20 21:53 MCV MCH MCHC RDW Plt Count MPV Immature Gran % (Auto) Neut % (Auto) Lymph % (Auto) [place] % (Auto) Eos % (Auto) Baso % (Auto) Lymph # (Auto) [place] # (Auto) Eos # (Auto) Baso # (Auto) Abs Immat Gran (auto) Absolute Neuts (auto) Absolute Nucleated RBC Nucleated RBC % (auto) VBG pH VBG pCO2 VBG pO2 VBG HCO3 VBG O2 Saturation VBG Base Excess Anion Gap Estim Creat Clear Calc Estimated GFR Random Glucose Calcium Total Bilirubin AST ALT Alkaline Phosphatase Troponin I High Sens 33.3 H C-Reactive Protein B-Natriuretic Peptide Total Protein Albumin Urine Color YELLOW Urine Appearance CLEAR Urine pH 6.0 Ur Specific [place] 1.025 Urine Protein 1+ H Urine Glucose (UA) NEG Urine Ketones NEG Urine Blood NEG Urine Nitrite NEG Ur Leukocyte Esterase NEG Urine RBC 1-4 Urine WBC 1-4 Ur Squamous Epith Cells 3+ Urine Bacteria NONE Urine Mucus 3+ COVID-19 ([facility]) Negative COVID-19 Clin Com See Note 11/25/21 11/26/21 22:48 03:49 MCV MCH MCHC RDW Plt Count MPV Immature Gran % (Auto) Neut % (Auto) Lymph % (Auto) [place] % (Auto) Eos % (Auto) Baso % (Auto) Lymph # (Auto) [place] # (Auto) Eos # (Auto) Baso # (Auto) Abs Immat Gran (auto) Absolute Neuts (auto) Absolute Nucleated RBC Nucleated RBC % (auto) VBG pH 7.45 H VBG pCO2 39 VBG pO2 83 VBG HCO3 28 H VBG O2 Saturation 97.0 VBG Base Excess 4.1 Anion Gap Estim Creat Clear Calc Estimated GFR Random Glucose Calcium Total Bilirubin AST ALT Alkaline Phosphatase Troponin I High Sens C-Reactive Protein B-Natriuretic Peptide Total Protein Albumin Urine Color Urine Appearance Urine pH Ur Specific [place] Urine Protein Urine Glucose (UA) Urine Ketones Urine Blood Urine Nitrite Ur Leukocyte Esterase Urine RBC Urine WBC Ur Squamous Epith Cells Urine Bacteria Urine Mucus COVID-19 ([facility]) Negative COVID-19 Clin Com See Note Imaging Radiologist's Impressions: Impressions Hip/Pelvis X-Ray 11/25/21 18:53 IMPRESSION: Questionable avulsion fracture without displacement of fragments of greater trochanter. Correlate clinically if necessary followed by CT scan Cervical Spine CT 11/25/21 19:21 IMPRESSION: No interval change, mild degenerative changes in cervical spine with grade 1 anterior listhesis of C3 over C4 Head CT 11/25/21 19:21 IMPRESSION: Global atrophy and sequela of microangiopathy Chest CT 11/26/21 00:30 IMPRESSION: * Moderate emphysema and chronic bronchitis with scattered endobronchial secretions within the lower lobe bronchioles similar to prior. * Mild interstitial edema * Age-indeterminate mild compression fracture at T5 superior endplate, 20% Hip CT 11/26/21 00:30 IMPRESSION: Possible nondisplaced cortical avulsion fracture involving the anterior greater trochanter, age indeterminant. Lack of soft tissue swelling supports chronicity. Assessment and Plan (1) Avulsion fracture of right hip: Status: Acute (2) Fall: Status: Acute Plan 81-year-old female with a past medical history of COPD on home oxygen, moderate protein calorie malnutrition, irritable bowel syndrome, GERD, anxiety, depression, dementia presented from the [facility] with a chief complaint of fall. Admitted for following Avulsion fracture of the right hip: Pain control. Weightbearing as tolerated as per orthopedics team recommendations. PT/OT History of COPD: Patient on 4 L of supplemental oxygen at baseline. Goal oxygen saturation 91-93%. Stable. DuoNebs p.r.n.. Indeterminate troponins: Patient denies any chest pain. Troponins plateaued. Likely demand. Patient has prior elevated troponins. CT scan showed mild interstitial edema. Echocardiogram. History of anxiety/depression: Continue home medications DVT prophylaxis: Lovenox Code status: Full code. Patient has molst form Quality Stroke Does the patient have a stroke diagnosis?: No VTE Prior VTE?: No VTE Risk Level:: Medical - moderate - high VTE Device Contraindication: Treatment Not Indicated VTE Drug Contraindication: N/A - Med Ordered
[2021-11-26] MEDS: Enoxaparin Sodium 40 MG/0.4 ML SYRINGE SUBCUT (07:38)
--- NOTE | 2021-11-26 07:50 | PHA.MEDREC ---
Pharmacy Consult ? Medication Reconciliation Pharmacy has completed the medication reconciliation. As per current medications on transfer/discharge report from [facility]. Resident no. [id number]
--- NOTE | 2021-11-26 08:35 | P.EN_ITS ---
Event Note Date of Service: 11/26/21 Event Note: I personally saw and examined the patient. A/P per H and p of this morning. 81-year-old female with a past medical history of COPD on home oxygen, moderate protein calorie malnutrition, irritable bowel syndrome, GERD, anxiety, depression, dementia presented from the residential with a chief complaint of fall.? Admitted for following Avulsion fracture of the right hip:? Pain control.? Weightbearing as tolerated as per orthopedics team recommendations.? PT/OT History of COPD:? Patient on 4 L of supplemental oxygen at baseline.? Goal oxygen saturation 91-93%.? Stable.? DuoNebs p.r.n.. Indeterminate troponins: Patient denies any chest pain.? Troponins plateaued.? Likely demand. Patient has prior elevated troponins.? CT scan showed mild interstitial edema.? Echocardiogram tomorrow History of anxiety/depression: Continue home medications DVT prophylaxis:? Lovenox Code status:? Full code.? Patient has molst form
[2021-11-26 12:23] VITALS: BP 141/65; PULSE 80; RESP 18; TEMP 36.2; O2SAT 95
[2021-11-26 15:36] VITALS: BP 162/67; PULSE 77; RESP 18; TEMP 37.2; O2SAT 96
--- NOTE | 2021-11-26 15:38 | MHC.CM.PN ---
Addendum entered by Ana Schulz 11/27/21 08:43: PER [facility], PTS PCP IS DAGOBERTO MARROQUIN Original Note: CM RECEIVED A CALL FROM PTS DAUGHTER, JOSE F LUNA ([phone]) WHO REPORTS THE PT IS A RESIDENT OF [facility] SHE REPORTS THE PT STILL BELIEVES SHE WILL BE GOING HOME, HOWEVER THE PLAN IS FOR HER TO REMAIN LTC AT THE SNF SHE REPORTS THE PT USES A WALKER AT [facility] F REPORTS SHE IS THE HCP AND POA FOR THE PT AND SAYS THE HCP IS INVOKED SHE AGREES TO EMAIL THE INVOCATION TO CM, HCP AND POA ON FILE SHE REPORTS THE PT IS COVID-19 VACCINATED OBSERVATION NOTICE DELIVERED DC PLAN IS RETURN TO [facility] MESSAGE SENT TO SNF [facility] TO CONFIRM PT IS ABLE TO RETURN AND PCP INFORMATION PT WILL NEED BLS TRANSPORT
[2021-11-26] MEDS: 0.9 % Sodium Chloride Flush 3 ML SYRINGE IVFLUSH ×2 (16:03→20:14)
[2021-11-26 19:22] VITALS: BP 161/68; PULSE 95; RESP 17; TEMP 36.5; O2SAT 96
[2021-11-26] MEDS: Melatonin 3 MG TABLET 6 MG PO (20:15)
[2021-11-26 23:23] VITALS: BP 160/73; PULSE 82; RESP 16; TEMP 36.1; O2SAT 97
[2021-11-27 03:43] VITALS: BP 166/87; PULSE 83; RESP 16; TEMP 36.3; O2SAT 96
[2021-11-27 05:30] LABS: MANUAL DIFF FLAG NO
[2021-11-27 05:32] LABS: Basophils Absolute Auto 0.1 X10*3/uL (0.0-0.2); Basophils Percent Auto 0.5 % (0-2); Eosinophils Percent Auto 9.9 % (0-4); Hematocrit 31.8 % (37.0-47.0); Hemoglobin 9.7 g/dl (12.0-16.0); Imm Gran Abs Auto 0.02 X10*3/uL (0.00-0.03); Imm Gran Pct Auto 0.2 % (0.0-0.4); Lymphocytes Absolute Auto 1.4 X10*3/uL (1.2-4.9); Lymphocytes Percent Auto 13.6 % (20-40); Mean Corpuscular HGB Conc 30.5 g/dl (31.0-35.0); Mean Corpuscular Hemoglobin 28.6 pg (27.0-33.0); Mean Corpuscular Volume 93.8 fL (80.0-98.0); Mean Platelet Volume 10.8 fL (9.4-12.3); Monocytes Absolute Auto 0.9 X10*3/uL (0.1-1.2); Monocytes Percent Auto 8.8 % (2-11); Neutrophils Absolute Auto 6.7 x10*3/uL (2.0-8.3); Platelet Count 306 X10*3/uL (160-400); Red Blood Count 3.39 X10*6/uL (4.20-5.50); Red Cell Distribution Width 14.6 % (11.0-16.0); White Blood Count 10.1 X10*3/uL (4.8-10.8)
[2021-11-27 05:47] LABS: Anion Gap 13 (12-20); Blood Urea Nitrogen 26 mg/dL (9-16); Calcium 9.3 mg/dL (8.4-10.2); Carbon Dioxide 28 mmol/L (22-29); Chloride 106 mmol/L (96-108); Creatinine Clr Calc Pharmacy 31.2; Estimated Glomerular Filt Rate 50; Glucose Random 107 mg/dL (60-115); Potassium 5.1 mmol/L (3.3-5.1); Sodium 142 mmol/L (135-145)
[2021-11-27] MEDS: Enoxaparin Sodium 40 MG/0.4 ML SYRINGE SUBCUT (06:10)
[2021-11-27 07:43] VITALS: BP 146/67; PULSE 83; RESP 16; TEMP 36.3; O2SAT 95
--- NOTE | 2021-11-27 08:00 | CA_ITS ---
Transthoracic Echocardiogram Patient (Last, First, Middle): Roselia More, Gender: Female Date of : 1940 Age: 81 Procedure Date: 11/27/2021 Procedure Type: Transthoracic Echocardiogram Location: S3W Height: 172.72 cm Weight: 46.27 kg BSA: 1.54 m2 Heart Rate: bpm BP: 147 / 67 mmHg Dairy Manufacturing Technologist: LEOLA Referring MD: Arthur Street MD Insole Beveler: Jimbo Tom MD Symptoms: ?chf Study Quality: Fair ECG Rhythm: Sinus Conclusions: - 1. Normal LV systolic function with asymmetric septal hypertrophy with suggestion of dynamic LVOT obstruction 2. Mild left atrial enlargement 3. Mitral stenosis cannot be entirely ruled out 4. Normal RV systolic pressure 5. No gross pericardial effusion Findings Left Ventricle Normal left ventricular cavity size. There is mildly increased left ventricular wall thickness. The left ventricular systolic function is normal. The visually estimated ejection fraction is between 60-65%. Regional wall motion abnormalities can not be excluded due to suboptimal endocardial definition. Spectral Doppler is indicative of an impaired relaxation filling pattern. There is moderate septal asymmetric hypertrophy. there is increased gradient across the LVOT and aortic valve with Doppler envelope consistent with obstructive physiology along with increased gradient with Valsalva consistent with dynamic obstructive physiology. Right Ventricle Normal right ventricular cavity size and systolic function. Atria The left atrium is mildly dilated. Interatrial shunt cannot be excluded. The right atrium is normal in size. Aortic Valve The aortic valve was not well visualized. There is mild calcification of the aortic valve. There is no aortic valve regurgitation. Mitral Valve There is mild anterior and moderate posterior mitral leaflet thickening. There is moderate mitral annular calcification. There is no mitral valve regurgitation. There is no mitral valve stenosis. mitral stenosis cannot be entirely ruled out on this study Pulmonic Valve The pulmonic valve was not well visualized. Tricuspid Valve The tricuspid valve was not well visualized. There is trace tricuspid valve regurgitation. The right ventricular systolic pressure is normal. Normal right atrial pressure. There is no evidence of pulmonary hypertension. Great Vessels All visible segments of the aorta are normal in size. The pulmonary artery was not well visualized. Venous The inferior vena cava is normal in size and collapses greater than 50% with inspiration. Pericardium/Pleural There is no evidence of pericardial effusion. Measurements 2D Linear Measurements IVSd: 1.40 0.6-0.9/0.6-1.0 cm LVIDd: 2.83 3.9-5.3/4.2-5.9 cm LVIDd Index: 1.84 2.4-3.2/2.2-3.1 cm/m2 LVIDs: 1.92 2.0-3.6 cm LVPWd: 1.11 0.7-1.1 cm LA Diam: 3.90 2.7-3.8/3.0-4.0 cm LAIDs Index: 2.53 1.5-2.3 cm/m2 LV Mass: 134.79 67-162/88-224 g LV Mass Index: 87.53 43-95/49-115 g/m2 LVOT Diam: 1.80 3.0+(-)1.3 cm Mitral Valve MV VTI: 0.47 MV Pk Rojas: 2.11 MV Mn Rojas: 1.28 MV Pk Grad: 18.00 MV Mn Grad: 7.00 MV Pk E: 1.14 MV PK A: 2.11 MV Decel Time: 239.00 E/A: 0.50 E'Lateral: 4.90 E'Medial: 4.57 E/E' Med: 24.90 E/E' Lat: 23.30 PHT: 70.00 MVA PHT: 3.14 MVA Continuity: 1.90 Decel Cecil: 4.76 Aortic Valve AoV Pk Rojas: 2.57 AoV Mn Rojas: 2.00 AoV VTI: 0.45 AoV Pk Grad: 26.00 Aov Mn Grad: 18.00 ANUSHKA Cont.VTI: 1.98 LVOT LVOT Pk Rojas: 2.20 LVOT Mn Rojas: 1.48 LVOT VTI: 0.35 LVOT Pk Grad: 19.00 LVOT Mn Grad: 11.00 LVOT Diam: 1.80 LVOT Area: 2.54 Diastolic Function MV Pk E: 1.14 MV Pk A: 2.11 E/A: 0.50 E'Medial: 4.57 E/E' Med: 24.90 E' Laterial: 4.90 E/E' Lat: 23.30 Right Ventricle TAPSE (mm): 23.00 TVS' Rojas: 18.30 Tricuspid Valve TR Pk Rojas: 1.67 TR Pk Grad: 11.00 RA Press: 3.00 RVSP: 14.00 Great Vessels Aorta Sinus of Valsalva: 3.07 2.0-3.[address] [place]: 2.76 1.7-3.4 cm Ao Asc: 3.00 2.1-3.4 cm Updated in Other Vendor System with Status of Final Jimbo Tom MD electronically signed on 11/27/2021 12:31:41 PM with status of Final
[2021-11-27] MEDS: predniSONE 5 MG TABLET PO (10:12)
[2021-11-27] MEDS: DULoxetine HCl 20 MG CAPSULE.DR PO (10:12)
[2021-11-27] MEDS: DULoxetine HCl 60 MG CAPSULE.DR PO (10:12)
[2021-11-27] MEDS: 0.9 % Sodium Chloride Flush 3 ML SYRINGE IVFLUSH ×2 (10:12→15:50)
[2021-11-27] MEDS: Multivitamin TABLET 1 TAB PO (10:12)
[2021-11-27] MEDS: Docusate Sodium 100 MG CAPSULE PO (10:12)
[2021-11-27] MEDS: Omeprazole 20 MG CAPSULE.DR PO (10:12)
[2021-11-27] MEDS: Aspirin Enteric Coated 81 MG TABLET.DR PO (10:12)
[2021-11-27] MEDS: Acetaminophen 325 MG TABLET 650 MG PO (10:14)
[2021-11-27 10:25] VITALS: BP 146/67; PULSE 83; O2SAT 95
[2021-11-27 11:38] VITALS: BP 146/65; PULSE 84; RESP 15; TEMP 36.4; O2SAT 97
--- NOTE | 2021-11-27 12:14 | HO.PM.IMPN ---
Subjective Subjective Date of Service: 11/27/21 Interval History: f/u fall leading avulsion fracture of the hip Interval history: pain is controlled except with movment. Review of Systems no chest pain, no dizziness Physical Exam Vital Signs: Vital Signs: Last Vital Signs Temp 97.5 F 11/27/21 11:38 Pulse 84 11/27/21 11:38 Resp 15 11/27/21 11:38 BP 146/65 H 11/27/21 11:38 Pulse Ox 97 11/27/21 11:38 Oxygen Flow Rate 4 11/25/21 18:14 BMI result Body Mass Index 15.5 Const: Other: General: AO X 3, no acute distress Resp: CTA bilateral CVS: S1,S2,RRR GI: +BS, NT, no distention Skin: No rash Neuro: motor grossly intact Psych: appropriate affect Objective Data Active Medications Acetaminophen (Acetaminophen 325 Mg Tablet) 650 mg PO Q6H PRN PRN Reason: Fever Or Pain Last Admin: 11/27/21 10:14 Dose: 650 mg Documented by: VALDEMAR Albuterol Sulfate (Albuterol Sulfate 90 Mcg 8 Gm Inhaler) 2 puff INHALE Q6H PRN PRN Reason: copd Albuterol/Ipratropium (Albuterol/Iprat 2.5/0.5mg 3 Ml Ampul.Neb) 3 ml INHALE RQ4H PRN PRN Reason: Shortness of Breath/Wheezing Alprazolam (Alprazolam 0.25 Mg Tablet) 0.25 mg PO BID PRN PRN Reason: Anxiety Artificial Tears (Artificial Tears 15 Ml Drops) 2 drop EYE-BOTH Q4H PRN PRN Reason: Dry Eyes Aspirin (Aspirin Enteric Coated 81 Mg Tablet.) 81 mg PO DAILY [facility] Last Admin: 11/27/21 10:12 Dose: 81 mg Documented by: VALDEMAR Atorvastatin Calcium (Atorvastatin Calcium 10 Mg Tablet) 10 mg PO BEDTIME [facility] Bisacodyl (Bisacodyl 10 Mg Supp.Rect) 10 mg ND DAILY PRN PRN Reason: Constipation Docusate Sodium (Docusate Sodium 100 Mg Capsule) 100 mg PO DAILY [facility] Last Admin: 11/27/21 10:12 Dose: 100 mg Documented by: VALDEMAR Duloxetine HCl (Duloxetine Hcl 20 Mg Capsule.) 20 mg PO DAILY [facility] Last Admin: 11/27/21 10:12 Dose: 20 mg Documented by: VALDEMAR Duloxetine HCl (Duloxetine Hcl 60 Mg Capsule.) 60 mg PO DAILY [facility] Last Admin: 11/27/21 10:12 Dose: 60 mg Documented by: VALDEMAR Enoxaparin Sodium (Enoxaparin Sodium 40 Mg/0.4 Ml Syringe) 40 mg SUBCUT Q24H [facility] Last Admin: 11/27/21 06:10 Dose: 40 mg Documented by: JORDAN Ferrous Sulfate (Ferrous Sulfate 324 Mg Tablet.) 324 mg PO DAILY [facility] Fluticasone Propionate (Fluticasone Propionate Nasal 16 Gm [place]) 2 spray NOSTRIL-B DAILY PRN PRN Reason: Allergic Symptoms Hydromorphone HCl (Hydromorphone Hcl 1 Mg/Ml Syringe) 0.5 mg IVPUSH Q4H PRN; Protocol PRN Reason: Pain, Severe (Pain Scale 7-10) Ipratropium [place] (Ipratropium [place] 1 Puff/17 Mcg Inhaler) 2 puff INHALE RTID [facility] Magnesium Hydroxide (Milk Of Magnesia 30 Ml Oral.Susp) 30 ml PO DAILY PRN PRN Reason: Constipation Melatonin (Melatonin 3 Mg Tablet) 6 mg PO BEDTIME PRN PRN Reason: Insomnia Last Admin: 11/26/21 20:15 Dose: 6 mg Documented by: JORDAN Multivitamins/Vitamin C (Multivitamin Tablet) 1 tab PO DAILY [facility] Last Admin: 11/27/21 10:12 Dose: 1 tab Documented by: VALDEMAR Non-Formulary Medication (Fluticasone Furoate [Arnuity Ellipta]) 1 puff INHALE RDAILY [facility] Non-Formulary Medication (Umeclidinium-Vilanterol [Anoro Ellipta]) 1 puff INHALE RDAILY [facility] Omeprazole (Omeprazole 20 Mg Capsule.) 20 mg PO DAILY@0630 [facility] Last Admin: 11/27/21 10:12 Dose: 20 mg Documented by: VALDEMAR Prednisone (Prednisone 5 Mg Tablet) 5 mg PO DAILY [facility] Last Admin: 11/27/21 10:12 Dose: 5 mg Documented by: VALDEMAR Senna (Sennosides 8.6 Mg Tablet) 17.2 mg PO BEDTIME PRN PRN Reason: Constipation Sodium Chloride (0.9 % Sodium Chloride Flush 3 Ml Syringe) 3 ml IVFLUSH QSHIFT CHUY Last Admin: 11/27/21 10:12 Dose: 3 ml Documented by: VALDEMAR Sodium Chloride (Sodium Chloride 0.65 % Nasal 44 Ml Sprbtl) 2 spray NOSTRIL-B Q6H PRN PRN Reason: Dry Nasal Passages Labs CBC & Chem 7: 11/27/21 05:09 11/27/21 05:09 Labs: Laboratory Results - last 24 hr 11/27/21 11/27/21 05:09 05:09 MCV 93.8 MCH 28.6 MCHC 30.5 L RDW 14.6 Plt Count 306 MPV 10.8 Immature Gran % (Auto) 0.2 Neut % (Auto) 67.0 Lymph % (Auto) 13.6 L [place] % (Auto) 8.8 Eos % (Auto) 9.9 H Baso % (Auto) 0.5 Lymph # (Auto) 1.4 [place] # (Auto) 0.9 Eos # (Auto) 1.0 H Baso # (Auto) 0.1 Abs Immat Gran (auto) 0.02 Absolute Neuts (auto) 6.7 Absolute Nucleated RBC 0.000 Nucleated RBC % (auto) 0.0 Anion Gap 13 Estim Creat Clear Calc 31.2 Estimated GFR 50 Random Glucose 107 Calcium 9.3 Assessment and Plan (1) Avulsion fracture of right hip: Status: Acute (2) Fall: Status: Acute Plan 81-year-old female with a past medical history of COPD on home oxygen, moderate protein calorie malnutrition, irritable bowel syndrome, GERD, anxiety, depression, dementia presented [facility] the [place] [facility] with a chief complaint of fall. Admitted for following Avulsion fracture of the right hip d/t fall, Pain control. Weightbearing as tolerated as per orthopedics team recommendations. PT is recommending STR History of COPD: Patient on 4 L of supplemental oxygen at baseline. Goal oxygen saturation 91-93%. Stable. DuoNebs p.r.n.. Indeterminate troponins: Patient denies any chest pain. Troponins plateaued. Likely demand. Patient has prior elevated troponins. CT scan showed mild interstitial edema. Echocardiogram done History of anxiety/depression: Continue home medications DVT prophylaxis: Lovenox Code status: Full code. Patient has molst form inpatient need: hip fracture, need rehab, no bed yet Quality Stroke Does the patient have a stroke diagnosis?: No VTE Prior VTE?: No VTE Risk Level:: Medical - moderate - high VTE Device Contraindication: Treatment Not Indicated VTE Drug Contraindication: N/A - Med Ordered
--- NOTE | 2021-11-27 12:35 | PM.DS ---
DS: Providers Provider Date of Service: 11/27/21 Date of admission: 11/26/21 06:12 Primary care physician: Unknown Physician Consults: 11/26/21 06:17 Consult to Orthopedics Routine Consulting Provider: Víctor Bautista Reason for consultation: Right hip avulsion fracture DS: Diagnosis Discharge Diagnosis (1) Avulsion fracture of right hip: Status: Acute (2) Fall: Status: Acute DS: Summary Hospital Course Hospital Course: Chief Complaint: Fall 81-year-old female with a past medical history of COPD on home oxygen, moderate protein calorie malnutrition, irritable bowel syndrome, GERD, anxiety, depression, dementia [facility] with a chief complaint of fall.? Patient reportedly was walking to the bathroom with the help of the walker of, slipped and fell on her right side; initially denied any complaints but later complained of the right hip pain; subsequently sent to the hospital for further evaluation. Denies any head strike or loss of consciousness.? Patient denied any chest pain palpitations lightheadedness or dizziness. Patient denies any abdominal discomfort, urinary complaints.? Review of all other systems is negative except mentioned above ER course: Per ER team patient had a CT scan done which showed avulsion fracture of the right hip; orthopedics was notified who assisted weight-bearing as tolerated and orthopedics clinic follow-up.? Patient was not able to ambulate and is in significant pain.? Admitted to the hospital for pain control/PT OT. Hospital course: Patient presented with mechacnical fall that resulted in right hip avulsion fracture as noted on CT Possible nondisplaced cortical avulsion fracture involving the anterior greater trochanter, age indeterminant. Lack of soft tissue swelling supports chronicity.? This was evaluated by PT and is recommended for short term rehab, evaluated by Ortho and I discussed with Dr. Bautista is recommending Weight Bearing as tolerated with Walker and to follow up in 2 weeks, Oxycodone and Tyelenol for pain. History of COPD:? Patient on 4 L of supplemental oxygen at baseline.? Goal oxygen saturation 91-93%.? No change in the hospital Indeterminate troponins: Patient denies any chest pain.? Troponins flat at 33 and repeat 34, no chest pain. No further testing at this time, Echo done with the following finding - 1.? Normal LV systolic function with asymmetric septal ? hypertrophy with suggestion of dynamic LVOT obstruction? 2.? Mild left atrial enlargement ? 3.? Mitral stenosis cannot be entirely ruled out ? 4.? Normal RV systolic pressure? 5.? No gross pericardial effusion? History of anxiety/depression: Continue home medication Dispo: to return to SNF Time Spent with Patient Time attestation: Total time spent providing and/or coordinating discharge services: Discharge coordination time: Greater than 30 minutes Quality: Safe Use of Opioids Does Pt have an Active Cancer Diagnosis on the Problem List?: No Quality: Stroke Does the patient have a stroke diagnosis?: No Physical Exam Vital Signs: Vital Signs: Last Vital Signs Temp 97.5 F 11/27/21 11:38 Pulse 84 11/27/21 11:38 Resp 15 11/27/21 11:38 BP 146/65 H 11/27/21 11:38 Pulse Ox 97 11/27/21 11:38 Oxygen Flow Rate 4 11/25/21 18:14 BMI result Body Mass Index 15.5 Const: Other: General: AO X 3, no acute distress Resp: CTA bilateral CVS: S1,S2,RRR GI: +BS, NT, no distention Skin: No rash Neuro: motor grossly intact Psych: appropriate affect DS: Data Data Completed and Pending Completed studies during hospitalization [Text1]: Procedures Transfusion of Nonautologous Red Blood Cells into Peripheral Vein, Percutaneous Approach (08/01/20) Labs on day of discharge: Laboratory Results - last 24 hr 11/27/21 11/27/21 05:09 05:09 WBC 10.1 RBC 3.39 L Hgb 9.7 L Hct 31.8 L MCV 93.8 MCH 28.6 MCHC 30.5 L RDW 14.6 Plt Count 306 MPV 10.8 Immature Gran % (Auto) 0.2 Neut % (Auto) 67.0 Lymph % (Auto) 13.6 L [place] % (Auto) 8.8 Eos % (Auto) 9.9 H Baso % (Auto) 0.5 Lymph # (Auto) 1.4 [place] # (Auto) 0.9 Eos # (Auto) 1.0 H Baso # (Auto) 0.1 Abs Immat Gran (auto) 0.02 Absolute Neuts (auto) 6.7 Absolute Nucleated RBC 0.000 Nucleated RBC % (auto) 0.0 Sodium 142 Potassium 5.1 Chloride 106 Carbon Dioxide 28 Anion Gap 13 BUN 26 H Creatinine 1.05 Estim Creat Clear Calc 31.2 Estimated GFR 50 Random Glucose 107 Calcium 9.3 Discharge Plan Discharge Anticipated Discharge Date/Time: 11/27/21 09:39 Patient Disposition: Xfer SNF Discharge Diagnosis: Avulsion fracture of the hip, fall Referrals: Physician,Unknown J [Primary Care Provider] - 1 Week Discharge Medications: New oxycodone 5 mg tablet 5 mg PO Q6H PRN (Reason: pain (scale score 7-10)) Qty: 14 0RF Continued Atrovent HFA 17 mcg/actuation HFA aerosol inhaler 2 puff inhalation TID 0RF aspirin 81 mg Tablet,Delayed Release (Dr/Ec) 81 mg PO DAILY 0RF Hold Instructions: Resume on 08/06/20. docusate sodium 100 mg capsule 100 mg PO DAILY 0RF albuterol sulfate 90 mcg/actuation HFA aerosol inhaler 2 puff PO Q6H PRN (Reason: copd) 0RF fluticasone propionate 50 mcg/actuation spray,suspension 2 spray intranasal DAILY PRN (Reason: Allergic Symptoms) 0RF duloxetine 60 mg capsule,delayed release(DR/EC) 60 mg PO DAILY 0RF Rx Instructions: total daily dose of 80 mg Arnuity Ellipta 100 mcg/actuation blister with device 1 puff inhalation DAILY 0RF Anoro Ellipta 62.5-25 mcg/actuation blister with device 1 puff inhalation DAILY 0RF omeprazole 20 mg capsule,delayed release(DR/EC) 20 mg PO DAILY@0630 0RF atorvastatin 10 mg tablet 10 mg PO DAILY 0RF prednisone 5 mg tablet 5 mg PO DAILY 0RF alprazolam 0.25 mg tablet 1 tab PO BID PRN (Reason: Anxiety) 0RF acetaminophen 325 mg Tablet 650 mg PO Q6H MDD 3000 PRN (Reason: Fever Or Pain) 0RF magnesium hydroxide 400 mg/5 mL Suspension 400 mg PO DAILY PRN (Reason: Constipation) 0RF bisacodyl [Dulcolax (bisacodyl)] 10 mg Suppository 10 mg DE DAILY PRN (Reason: Constipation) 0RF Rx Instructions: after MOM administered prn constipation Multivitamin-Minerals Tablet 1 tab PO DAILY 0RF Saline Nasal 0.65 % Aerosol,[place] 2 spray INTRANASAL Q6H PRN (Reason: Dry Nasal [place]) 0RF duloxetine 20 mg capsule,delayed release(DR/EC) 20 mg PO DAILY 0RF Rx Instructions: total daily dose of 80 mg Natural Balance Tears 0.1-0.3 % Drops 2 drp ophthalmic (eye) Q4H PRN (Reason: Dry Eyes) 0RF ferrous sulfate [Iron (ferrous sulfate)] 325 mg (65 mg iron) tablet 325 mg PO DAILY 0RF Discharge Orders: Discharge Order (Routine); Ordered 11/27/21 Ordered By: Familia Estevez Diet: advance to usual diet Activity on Discharge: As tolerated Stand Alone Forms: Patient Portal Discharge page Care Plan Goals: Full recovery from avulsion hip fracture Health Concerns: hip fracture, fall risk Plan of Treatment: Weight Breaing as tolerated with Walker, Follo up with PCP in week, Follow up with Dr. Bautista in 2 weeks oxycodone for pain Assessment: as above
--- NOTE | 2021-11-27 14:14 | MHC.CM.PN ---
CM SPOKE TO PTS DAUGHTER, JOSE F, AND INFORMED HER OF PENDING DC AND PT RECOMMENDATION FOR STR JOSE F REPORTS THIS WOULD BE AT [facility] AND SHE IS AGREEABLE TO DC TODAY [facility] UPDATED VIA [facility] AND TRANSPORT SCHEDULED WITH [facility] FOR 1630 HOURS
[2021-11-27] MEDS: Ipratropium Bromide 1 PUFF/17 MCG INHALER 2 PUFF INHALE (15:17)
[2021-11-27 15:26] VITALS: BP 131/56; PULSE 101; RESP 18; TEMP 36.1; O2SAT 95
== END 2021-11-27 17:17 | disposition skilled nursing facility (03) ==
LOC: HO.ED 11-26 04:21 → HO.EDOVER 11-26 06:18 → HO.S3 11-26 11:39
PROVIDERS: Physician Assistant; Student in an Organized Health Care Education/Training Program; Admitting Provider Hospitalist; Emergency Provider Emergency Medicine Emergency Medical Services; Visit Provider Internal Medicine
DX: S72.001A Fracture of unspecified part of neck of right femur, initial encounter for closed fracture (principal); W01.0XXA Fall on same level from slipping, tripping and stumbling without subsequent striking against object, initial encounter; Z91.81 History of falling; Y93.01 Activity, walking, marching and hiking; Y92.002 Bathroom of unspecified non-institutional (private) residence as the place of occurrence of the external cause; Y92.9 Unspecified place or not applicable; Y99.8 Other external cause status; M21.751 Unequal limb length (acquired), right femur; M21.851 Other specified acquired deformities of right thigh; J96.11 Chronic respiratory failure with hypoxia; J43.2 Centrilobular emphysema; E44.0 Moderate protein-calorie malnutrition; K58.9 Irritable bowel syndrome, unspecified; K21.9 Gastro-esophageal reflux disease without esophagitis; F03.90 Unspecified dementia, unspecified severity, without behavioral disturbance, psychotic disturbance, mood disturbance, and anxiety; F41.8 Other specified anxiety disorders; Z68.1 Body mass index [BMI] 19.9 or less, adult; Z87.891 Personal history of nicotine dependence; Z20.822 Contact with and (suspected) exposure to COVID-19; Z96.641 Presence of right artificial hip joint; Z99.81 Dependence on supplemental oxygen; Z79.891 Long term (current) use of opiate analgesic; Z79.52 Long term (current) use of systemic steroids; Z79.899 Other long term (current) drug therapy
CPT/HCPCS: 36415; 70450; 71250; 72125; 73502; 73700; 80048; 80053; 81001; 81003; 82803; 83880; 84484; 85025; 86140; 87635; 93005; 93306; 94640; 96365; 96372; 96375; 96376; 97162; 99218; 99285; J1170; J1650; J1885; J2543

== ENCOUNTER 2021-12-08 07:43 | Outpatient (REF) | payer MEDICARE, SELFPAY | END 2021-12-08 07:44 | disposition home or self-care (01) | LOC: HO.HOSX 07:43 | PROVIDERS: Visit Provider Orthopaedic Surgery | DX: Z13.89 Encounter for screening for other disorder (principal) ==

== ENCOUNTER 2021-12-14 06:44 | Outpatient (REF) | payer MEDICARE, SELFPAY ==
--- NOTE | ~2021-12-14 | XR_ITS ---
EXAMINATION: RIGHT HIP AND AP PELVIS CLINICAL INFORMATION: Right hip pain COMPARISON: Right hip 11/26/2021 TECHNIQUE: AP pelvis one view. Right hip crosstable view. 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 There is no prosthetic loosening. The left hip joint space is normal. There SI joints are symmetric and normal. There is L4 and L5 pedicle screws with interconnecting rods. 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 There is no prosthetic loosening. No visible acute fracture or dislocation seen.
--- NOTE | ~2021-12-14 | XR_ITS ---
EXAMINATION: RIGHT HIP AND AP PELVIS CLINICAL INFORMATION: Right hip pain COMPARISON: Right hip 11/26/2021 TECHNIQUE: AP pelvis one view. Right hip crosstable view. 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 There is no prosthetic loosening. The left hip joint space is normal. There SI joints are symmetric and normal. There is L4 and L5 pedicle screws with interconnecting rods. 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 There is no prosthetic loosening. No visible acute fracture or dislocation seen.
== END 2021-12-14 06:45 | disposition home or self-care (01) ==
LOC: HO.HOSX 06:44
PROVIDERS: Visit Provider Orthopaedic Surgery
DX: M97.01XD Periprosthetic fracture around internal prosthetic right hip joint, subsequent encounter (principal); X58.XXXD Exposure to other specified factors, subsequent encounter
CPT/HCPCS: 72170; 73501; 73502; 99212

== ENCOUNTER 2022-01-25 06:23 | Outpatient (REF) | payer MEDICARE, SELFPAY ==
--- NOTE | ~2022-01-25 | XR_ITS ---
EXAMINATION: XR PELVIS CLINICAL INFORMATION: Pain hip. COMPARISON: Radiographs pelvis and right hip 12/14/2021, 11/25/2021. TECHNIQUE: X2 views. FINDINGS: Status post prior bipolar right hip replacement. Hardware intact. No fracture or dislocation or osteolysis. Bony pelvis unremarkable. Left hip shows no fracture or destructive process or joint narrowing. Degenerative changes again noted lower lumbar spine. There is fusion hardware lower lumbar spine similar to prior studies. Surgical clip right lower quadrant abdomen. There is moderate stool in the colon. Bowel gas unremarkable. XR/XR pelvis 1-2V IMPRESSION: -Status post right hip replacement. Hardware intact. No osteolysis or destructive process. -Bony pelvis and left hip unremarkable. -Degenerative changes and fusion hardware lower lumbar spine.
== END 2022-01-25 06:24 | disposition home or self-care (01) ==
LOC: HO.HOSX 06:23
PROVIDERS: Visit Provider Orthopaedic Surgery
DX: M97.01XA Periprosthetic fracture around internal prosthetic right hip joint, initial encounter (principal)
CPT/HCPCS: 72170; 99212